=== PATIENT | female | born 1985 | race Caucasian/White ===

== ENCOUNTER 2020-03-24 19:29 | Observation (INO) | payer BC, SELFPAY ==
--- NOTE | ~2020-03-24 | CT_ITS ---
EXAMINATION: CT brain wo con EXAM DATE: 03/24/2020 19:58 INDICATION: Syncope. Loss of consciousness for about 10 seconds. TECHNIQUE: Spiral CT of the head was performed without contrast. Axial, coronal and sagittal images were reviewed. The dose-length product (DLP) for this examination was 605.33 mGy-cm. The exposure w as tailored according to patient size, and iterative reconstruction (ASIR) was used as additional dos e reduction technique. There is no prior study for comparison. FINDINGS: There is no acute intraparenchymal hemorrhage. No evidence of intraparenchymal brain mass lesion. No evidence of acute infarction. There is no mass effect or midline shift. The ventricles are normal in size. There are no extra-axial collections. There are no acute calvarial fractures. T he orbits are unremarkable. Soft tissue is unremarkable. The visualized sinuses and mastoid air can ls are well aerated. IMPRESSION: 1. No acute intracranial findings. Reviewed, dictated and finalized at location A.
--- NOTE | ~2020-03-24 | XR_ITS ---
EXAMINATION: XR chest 1V EXAM DATE: 03/24/2020 20:04 INDICATION: Syncope. TECHNIQUE: Portable AP frontal chest x-ray was obtained. There is no prior study for comparison. FINDINGS: The lungs are clear. There are no pleural effusions. The cardiomediastinal silhouette is within normal limits. There is no pneumothorax suspected. The bones and soft tissues are unremarkab le. IMPRESSION: Normal chest x-ray exam. Reviewed, dictated and finalized at location A. IMPRESSION: Normal chest x-ray exam.
[2020-03-24 19:33] VITALS: BP 106/59; PULSE 70; RESP 18; TEMP 37.2; O2SAT 100
--- NOTE | 2020-03-24 19:44 | ECG_ITS ---
Measurements Intervals [place] Rate: 69 P: 76 KS: 151 QRS: 82 QRSD: 77 T: 52 QT: 366 QTc: 394 Interpretive Statements SINUS RHYTHM WITH SINUS ARRHYTHMIA RSR' IN V1 OR V2, CONSIDER RIGHT VENTRICULAR HYPERTROPHY OR RIGHT VCD LOW QRS VOLTAGE IN PRECORDIAL LEADS BASELINE ARTIFACT- I, II, III, AVF BORDERLINE ECG Electronically Signed On 03-24-2020 20:06:47 CDT by Sumit Duncan D.O.
[2020-03-24] MEDS: SODIUM CHLORIDE 0.9% IV 1,000 ML 999 ML IV CONT ×2 (19:50→22:52)
--- NOTE | 2020-03-24 19:51 | ED.DIZZY ---
HPI - Dizziness General Chief Complaint: Syncope Stated Complaint: syncope Time Seen by Provider: 03/24/20 19:31 Source: RN notes reviewed History of Present Illness HPI Narrative: Patient presents emergency department from home for syncopal episode. Patient states episode occurred approximate 30 minutes prior to arrival. Patient states she been sitting down and got up to use the restroom she states her vision got black briefly and come back that walking to the bathroom shaking dizzy and passed out. States this is the fourth time she is passed out since September. She denies any injury from the episode she denies having any chest pain or shortness of breath she denies any vision changes numbness or tingling in the extremities abdominal pain nausea vomiting or any other symptoms. She did see her primary care physician after syncopal episode in September at that time she states there was recommended to get a Holter monitor but she has not gotten a Holter monitor and follow-up at this point Related Data Home Medications Medication Instructions Recorded Confirmed lorazepam 2 mg PO DAILY 03/24/20 03/24/20 quetiapine 25 mg PO DAILY 03/24/20 03/24/20 sertraline 50 mg PO DAILY 03/24/20 03/24/20 Allergies Allergy/AdvReac Type Severity Reaction Status Date / Time Contrast Media Allergy Intermediate HIVES Uncoded 08/12/14 10:28 Review of Systems Review of Systems: Narrative: Gen.: Denies fevers or chills Eyes: Denies eye pain or visual change ENT: Denies congestion Respiratory: Denies shortness of breath or cough CV: See HPI GI: Denies abdominal pain nausea, emesis or diarrhea Musculoskeletal: Denies back pain or muscle pain Neuro: Denies numbness, tingling, weakness or focal weakness Skin: Denies rash Except as documented, all other systems reviewed and negative [facility] Past Medical History Medical History (Updated 03/24/20 @ 23:52 by Duke Pratt DO) Anxiety Asperger syndrome Depression Social History Social History Smoking status: Never smoker Alcohol intake: never Exam Narrative: Exam Narrative: APPEARANCE: No acute distress, nontoxic, resting in bed EYES: EOMI HEENT: Normocephalic, atraumatic, OMM Neck: Supple nontender to palpation RESPIRATORY: No respiratory distress Clear to auscultation bilaterally with no rhonchi wheezing or rales. CARDIOVASCULAR: Regular rate and rhythm without murmurs rubs or gallops. ABDOMINAL: Soft, nontender, nondistended, no rebound or guarding MUSCULOSKELETAl: Moves all extremities. No clubbing, cyanosis or edema. NEURO: Awake and alert x 3. Following commands, speech normal, no focal deficits SKIN:: Warm, dry. No rashes lesions or abrasions PSYCHIATRIC: Normal affect/mood, Course Course Emergency Course: Patient states that her blood pressures normally run low asymptomatic in bed Discussed with Dr. Duran presentation work-up. Agrees with admission at this time Discussed with patient and family results of workup and diagnosis. Discussed need for admission. Patient and family understand and agree to current treatment plan Vital Signs Vital signs: Vital Signs Temperature 98.9 F 03/24/20 19:33 Pulse Rate 70 03/24/20 19:33 Respiratory Rate 18 03/24/20 19:33 Blood Pressure 106/59 L 03/24/20 19:33 Pulse Oximetry 100 03/24/20 19:33 Temperature 98.9 F 03/24/20 19:33 Pulse Rate 78 03/24/20 22:58 Respiratory Rate 20 03/24/20 22:58 Blood Pressure 100/45 L 03/24/20 22:58 Pulse Oximetry 99 03/24/20 22:58 MDM - Dizziness Lab Data Result diagrams: 03/24/20 19:49 03/24/20 19:49 Labs: Lab Results 03/24/20 03/24/20 03/24/20 Range/Units 19:49 19:49 19:49 WBC 2.7 L (4.5-10.0) K/mm3 RBC 4.24 (4.2-5.4) M/mm3 Hgb 12.5 (12.0-15.0) g/dL Hct 38.5 (37.0-47.0) % MCV 90.8 (80-100) fl MCH 29.5 (26-34) pg MCHC 32.5 (32-36) g/dl
[2020-03-24 19:57] LABS: Basophils Percent Auto 1.1 % (0.2-1.2); Eosinophils Absolute Auto 0.1 K/mm3 (0-0.3); Eosinophils Percent Auto 2.6 % (0-4.4); Hematocrit 38.5 % (37.0-47.0); Hemoglobin 12.5 g/dL (12.0-15.0); Immature Granulocyte Absolute 0.01 K/mm3 (0.00-0.031); Immature Granulocyte Percent A 0.4 % (0-0.5); Lymphocytes Absolute Auto 0.86 K/mm3 (0.9-3.2); Lymphocytes Percent Auto 31.4 % (18.3-44.2); Mean Corpuscular HGB Conc 32.5 g/dl (32-36); Mean Corpuscular Hemoglobin 29.5 pg (26-34); Mean Corpuscular Volume 90.8 fl (80-100); Mean Platelet Volume 11.8 fl (7.4-10.4); Monocytes Absolute Auto 0.2 K/mm3 (0.1-0.6); Monocytes Percent Auto 8.4 % (2.6-8.5); Neutrophils Absolute Auto 1.5 K/mm3 (1.3-6.7); Neutrophils Percent Auto 56.1 % (45.5-73.1); Platelet Count Result 138 k/mm3 (150-375); Red Blood Count 4.24 M/mm3 (4.2-5.4); Red Cell Distribution Width 12.3 % (11.5-14.5); White Blood Count 2.7 K/mm3 (4.5-10.0)
[2020-03-24 20:05] LABS: Prothrombin Time 13.2 Seconds (11.1-14.7)
[2020-03-24 20:06] LABS: Partial Thromboplastin Time 26.7 SECONDS (22.3-36.8)
[2020-03-24 20:09] LABS: Alanine Aminotransferase 12 U/L (4-35); Albumin Level 4.3 g/dL (3.5-5.1); Alkaline Phosphatase 64 U/L (38-126); Aspartate Amino Transferase 22 U/L (14-36); Bilirubin,Total 0.7 mg/dL (0.2-1.3); Blood Urea Nitrogen 13 mg/dL (7-17); Calcium 9.3 mg/dL (8.4-10.2); Carbon Dioxide 27 mmol/L (22-30); Chloride 105 mmol/L (98-107); Estimated CRCL calculation 59 ml/min; Estimated Glomerular Filt Rate > 60; Glucose 69 mg/dL (65-105); Potassium 3.4 mmol/L (3.4-5.0); Sodium 139 mmol/L (137-145)
[2020-03-24 20:21] LABS: Troponin I < 0.012 ng/mL (0.000-0.034)
[2020-03-24 21:20] VITALS: BP 101/67; PULSE 50; RESP 20; O2SAT 97
[2020-03-24 21:45] LABS: Add Urine Microscopic? YES; Appearance Urine Cloudy (Clear); Bacteria Urine Trace /hpf; Bilirubin Urine Negative (Negative); Blood Urine 3+ (Negative); Color Urine Yellow (Yellow); Glucose Urine UA Negative (Negative); Ketones Urine Negative (Negative); Leukocyte Esterase Ur 1+ LEU/UL (Negative); Mucus Urine Few /lpf; Nitrate Urine Negative (Negative); Protein Urine 2+ mg/dL (Negative); RBC Urine >75 /hpf (0-2); Squamous Epithelial Cell Urine Moderate /hpf (Few); Urobilinogen Urine Negative mg/dL (<2.0); WBC Urine 51-75 /hpf
[2020-03-24 21:54] VITALS: BP 87/52; PULSE 51; RESP 20; O2SAT 100
[2020-03-24 21:55] VITALS: BP 89/60; BP 90/62; PULSE 58; PULSE 63; RESP 20; O2SAT 100; O2SAT 98
[2020-03-24 21:56] VITALS: BP 87/52; BP 89/60; BP 90/62; PULSE 51; PULSE 58; PULSE 63
[2020-03-24 22:58] VITALS: BP 100/45; PULSE 78; RESP 20; O2SAT 99
--- NOTE | 2020-03-24 23:10 | PC.NURSE ---
Assumed care of patient at this time. Received bedside report from MARTHA Alva.
[2020-03-24 23:29] LABS: Lactic Acid Reflex 0.6 mmol/L (0.7-2.1)
[2020-03-25] VITALS (9 sets, daily range): BP systolic 99–116; BP diastolic 52–65; PULSE 51–63; RESP 16–20; TEMP 36.3–36.6; O2SAT 96–99; BMI 17.9
--- NOTE | 2020-03-25 00:57 | ADMGEN ---
This patient, Delores Head, was admitted to IMU Room 201-01 FROM ER 03/25/20 0050. Patient/family oriented to hospital policies and general routines including ID bracelet, bed and alarms, visiting hours, pain management, procedures, bathroom and other care routines, personal items, smoking policy, room service/diet, and visiting hours. Valuables list has been completed. Information on how to activate the Rapid Response Team has been discussed. Patient/Family are encouraged to report perceived risks to care and to ask questions if they do not understand what they are told or what they should do.
[2020-03-25] MEDS: SODIUM CHLORIDE 0.9% IV 1,000 ML 100 ML IV CONT (00:58)
[2020-03-25 02:32] LABS: Basophils Percent Auto 0.6 % (0.2-1.2); Eosinophils Absolute Auto 0.1 K/mm3 (0-0.3); Eosinophils Percent Auto 1.6 % (0-4.4); Hematocrit 38.8 % (37.0-47.0); Hemoglobin 12.3 g/dL (12.0-15.0); Immature Granulocyte Absolute 0.01 K/mm3 (0.00-0.031); Immature Granulocyte Percent A 0.3 % (0-0.5); Lymphocytes Absolute Auto 0.68 K/mm3 (0.9-3.2); Lymphocytes Percent Auto 21.3 % (18.3-44.2); Mean Corpuscular HGB Conc 31.7 g/dl (32-36); Mean Corpuscular Hemoglobin 29.3 pg (26-34); Mean Corpuscular Volume 92.4 fl (80-100); Monocytes Absolute Auto 0.2 K/mm3 (0.1-0.6); Monocytes Percent Auto 5.9 % (2.6-8.5); Neutrophils Absolute Auto 2.3 K/mm3 (1.3-6.7); Neutrophils Percent Auto 70.3 % (45.5-73.1); Platelet Count Result 120 k/mm3 (150-375); Red Cell Distribution Width 12.2 % (11.5-14.5); White Blood Count 3.2 K/mm3 (4.5-10.0)
[2020-03-25 02:41] LABS: Alanine Aminotransferase 13 U/L (4-35); Albumin Level 4.1 g/dL (3.5-5.1); Alkaline Phosphatase 72 U/L (38-126); Aspartate Amino Transferase 20 U/L (14-36); Bilirubin,Total 0.3 mg/dL (0.2-1.3); Blood Urea Nitrogen 11 mg/dL (7-17); Calcium 8.5 mg/dL (8.4-10.2); Carbon Dioxide 27 mmol/L (22-30); Chloride 108 mmol/L (98-107); Estimated CRCL calculation 66 ml/min; Estimated Glomerular Filt Rate > 60; Glucose 115 mg/dL (65-105); Potassium 3.5 mmol/L (3.4-5.0); Sodium 143 mmol/L (137-145)
[2020-03-25 02:52] LABS: Troponin I < 0.012 ng/mL (0.000-0.034)
[2020-03-25] MEDS: SERTRALINE HCL 50 MG TABLET PO (05:34)
[2020-03-25] MEDS: QUEtiapine FUMARATE 25 MG TABLET PO (05:34)
[2020-03-25] MEDS: POTASSIUM CHLORIDE 20 MEQ TABLET 40 MEQ PO (08:50)
--- NOTE | 2020-03-25 09:18 | PM.IMHP ---
H&P: HPI History of Present Illness Chief complaint: syncope Narrative: Date of visit 03/25 830. Delores Head is a 34 year old female states that last evening had been lying down got up to go to the bathroom and started feeling lightheaded and blacked out. States she was out for about 30 seconds with no confusion no bowel or bladder incontinence. She notes no palpitations nausea or other symptomatology. She has had at least 3 other similar episodes since of the year and had seen her primary care and was encouraged to get a monitor but with changing insurances she had not been able to get that done. As stated she denied any palpitations although 1 of the episodes were when she was standing from a sitting or lying position and less momentary consciousness.. 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 Her roommates have lost their jobs. Her mother was just diagnosed with Parkinson's and her parents have downsized and moved to [place]. She does have a chronic eating disorder with avoidance of numerous foods but states that her weight has been stable as far she knows She admits to not sleeping well sleeping more during the day than she does at night. 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 normal presently on cycle Muscle skeletal no particular joint discomfort Integument no skin breakdown rashes Neuropsych no seizures no headaches, does have history of anxiety and depression [facility] Past Medical History Medical History (Updated 03/25/20 @ 09:30 by Tru Pinedo MD) Anxiety Asperger syndrome Cystitis, interstitial Depression Surgical History Surgical History (Updated 03/25/20 @ 09:30 by Tru Pinedo MD) S/P cholecystectomy Family History Family History (Updated 03/25/20 @ 01:50 by Diana Brandt RN) Father Diabetes mellitus Hypertension Myocardial infarction Mother Parkinson disease Heart disease Mother No problems noted. 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, presently unemployed Smoking status: Never smoker Alcohol intake: never Substance use: never Gender identity (if verbalized by the patient): Female Spiritual care concerns: No Meds Home Medications and Allergies Home Medications Medication Instructions Recorded Confirmed Type lorazepam 2 mg PO DAILY 03/24/20 03/24/20 History quetiapine 25 mg PO DAILY 03/24/20 03/24/20 History sertraline 50 mg PO DAILY 03/24/20 03/24/20 History Allergies Allergy/AdvReac Type Severity Reaction Status Date / Time Contrast Media Allergy Intermediate HIVES Uncoded 08/12/14 10:28 Vital Signs Vital Signs - 24 hr 03/24/20 19:33 03/24/20 21:20 03/24/20 21:54 Temperature 37.2 C Pulse Rate 70 50 L 51 L Respiratory Rate 18 20 20 Blood Pressure 106/59 L 101/67 87/52 L Pulse Oximetry 100 97 100 03/24/20 21:55 03/24/20 21:56 03/24/20 22:58 Temperature Pulse Rate 63 63 78 Respiratory Rate 20 20 Blood Pressure 90/62 L 90/62 L 100/45 L Pulse Oximetry 98 99 03/25/20 00:00 03/25/20 00:10 03/25/20 00:59 Temperature 36.6 C 36.6 C Pulse Rate 60 56 L 56 L Respiratory Rate 20 20 Blood Pressure 99/59 L 109/64 Pulse Oximetry 99 99 03/25/20 01:00 03/25/20 01:57
== END 2020-03-25 11:25 | disposition home or self-care (01) ==
LOC: ANHED 20:19 → ANHIMU 23:46
PROVIDERS: Admitting Provider Internal Medicine; Emergency Provider Emergency Medicine; Visit Provider Internal Medicine
DX: R55 Syncope and collapse (principal); F41.9 Anxiety disorder, unspecified; F32.9 Major depressive disorder, single episode, unspecified; F84.5 Asperger's syndrome; Z79.899 Other long term (current) drug therapy
CPT/HCPCS: 36415; 70450; 71045; 80053; 81001; 81025; 83605; 84443; 84484; 85025; 85610; 85730; 87040; 87086; 87088; 93005; 96360; 96361; 99285; A9270; G0378; J7030

== ENCOUNTER 2022-09-19 16:25 | Outpatient (CLI) | payer OTHER, SELFPAY ==
--- NOTE | ~2022-09-19 | MR_ITS ---
EXAMINATION: MR brain/brain stem wo con DATE: 09/19/2022 17:12 INDICATION: Family history of Parkinson's disease. Leg tremors. TECHNIQUE: Magnetic resonance imaging (MRI) of the brain and brainstem was performed without intraven ous contrast. COMPARISON: Head CT 03/24/2020 FINDINGS: There is no intracranial hemorrhage, acute infarction, or abnormal intracranial mass lesion . The ventricles are normal in size. The paranasal sinuses are clear. The mastoid air cells are salma l. The orbits are normal. IMPRESSION: 1. Normal brain. Reviewed, dictated and finalized at location A. ARCH QUALITY ASSURANCE SPECIALIST IMPRESSION: 1. Normal brain.
== END 2022-09-19 16:26 | disposition home or self-care (01) ==
LOC: ANHIMG 16:27
PROVIDERS: PCP Internal Medicine; Visit Provider Clinical Nurse Specialist
DX: R25.1 Tremor, unspecified (principal); E22.1 Hyperprolactinemia; Z82.0 Family history of epilepsy and other diseases of the nervous system
CPT/HCPCS: 70551

== ENCOUNTER 2022-10-18 16:33 | Outpatient (CLI) | payer OTHER, SELFPAY ==
--- NOTE | ~2022-10-18 | MR_ITS ---
MRI of the brain and pituitary gland Clinical History: Abnormal prolactin level Technique: Axial and sagittal T1-weighted images were acquired. These were followed by axial T2-weigh yoli, diffusion weighted, gradient, and FLAIR images. Sagittal and coronal T1-weighted thin cut images were also performed through the sella turcica. Following intravenous administration of 14 cc MultiHa nce gadolinium, T1-weighted fat-sat imaging was performed through the brain in the axial plane. Coron al dynamic T1-weighted thin cut postcontrast imaging was also performed through the sella turcica. Findings: There is no abnormal signal in brain parenchyma. No acute/acute infarct, intracranial hemor rhage, or mass lesion. Ventricles and subarachnoid spaces are unremarkable. Orbits are unremarkable. Paranasal sinuses and m astoid air cells are clear. Major intracranial flow voids are intact. Sagittal midline structures are intact. No pituitary or sellar/suprasellar mass identified. No abnormal postcontrast enhancement identified. IMPRESSION: Unremarkable exam. No pituitary or sellar/suprasellar mass identified. Reviewed, dictated and finalized at location . CAL DOSIMETRIST
== END 2022-10-18 16:34 | disposition home or self-care (01) ==
PROVIDERS: PCP Internal Medicine; Visit Provider Obstetrics & Gynecology Gynecology
DX: E22.1 Hyperprolactinemia (principal)
CPT/HCPCS: 70553; A9577

== ENCOUNTER 2024-05-22 08:21 | Outpatient (CLI) | payer OTHER, SELFPAY ==
--- NOTE | 2024-06-03 15:25 | WPDHOMESLEEP ---
Sleep Study - Home Unattended Date of Study: 05/22/24 Ordering Provider: REN Bhatti-Owen Interpreting Provider: Lila Pantoja, DO Home Sleep Study Type: Watch PAT Height: 1.77 m Weight: 78.471 kg Body Mass Index: 25.2 Neck Circumference (inches): 13.5 John Day: 16 Reason for Sleep Study Unrefreshing sleep, daytime hypersomnia Sleep History The patient is a 38-year-old female that had a sleep study ordered by her primary care for evaluation of sleep apnea. The patient denies awakening from sleep short of breath. She denies awakening at night with heartburn, belching or cough. She occasionally snores but is rarely loud enough that others complain. She frequently has trouble sleeping when she has a cold. She denies waking up gasping for air throughout the night. She denies having breathing problems at night observed by herself or others. She occasionally sweats excessively at night. She denies having heart palpitations or irregular heartbeats during the night. She frequently falls asleep during the day but never while driving. She denies sleep paralysis and cataplexy. She constantly has trouble at school or work due to sleepiness. She occasionally experiences vivid dreamlike scenes upon awakening or falling asleep. She denies feeling afraid of going to sleep. She rarely has nightmares. She occasionally remembers her dreams. She constantly has thoughts racing through her mind. She occasionally feels sad or depressed. She constantly has anxiety. She rarely has muscular tension. She rarely notices parts of her body jerk. She denies kicking during the night. She occasionally has crawling and aching feelings in her legs and occasionally has leg pain during the night. She denies grinding her teeth during sleep and denies awakening with morning jaw pain. She is frequently bothered by pain during the day but occasionally awakened by pain during the night. She constantly wakes up feeling stiff in the morning. She constantly wakes up with sore or achy muscles. She frequently wakes up with pain in the neck I had a joints. She goes to bed at 8:00 p.m. on weekdays and at midnight on the weekends. It can take her 30 minutes up to 2 hours to fall asleep. She typically does not wake up throughout the night. She will stay in bed for 1 hour after waking up in the morning. She does typically gets 9-10 hours of sleep per night. She currently lives with her partner. She denies consuming any caffeinated beverages within 2 hours of bedtime. She denies engaging in physical exercise before bedtime. She will read and watch television before falling asleep. She will take naps in afternoon or the evening but they are not refreshing. She does consume caffeinated beverages throughout the day. She denies tobacco, alcohol and recreational drug use. [facility] Past Medical History Medical History Anxiety Asperger syndrome Cystitis, interstitial Depression Surgical History Surgical History S/P cholecystectomy Family History Family History Father Diabetes mellitus Hypertension Myocardial infarction Mother Parkinson disease Heart disease Mother No problems noted. 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
[2024-06-03 15:26] VITALS: BMI 25.2
== END 2024-05-23 11:10 | disposition home or self-care (01) ==
LOC: ANHCSM 08:22
PROVIDERS: PCP Internal Medicine; Visit Provider Clinical Nurse Specialist
DX: G47.10 Hypersomnia, unspecified (principal); Z82.0 Family history of epilepsy and other diseases of the nervous system; G47.33 Obstructive sleep apnea (adult) (pediatric)
CPT/HCPCS: 95800

== ENCOUNTER 2024-11-08 12:02 | Outpatient (CLI) | payer OTHER, SELFPAY ==
--- NOTE | ~2024-11-08 | MR_ITS ---
EXAMINATION: MR brain/brain stem wo/w con DATE: 11/08/2024 14:09 INDICATION: Headache. TECHNIQUE: Magnetic resonance imaging (MRI) of the brain and brainstem was performed without and with 17 mL MultiHance intravenous contrast. COMPARISON: Brain MRI 10/18/2022, head CT 03/24/2020 FINDINGS: There is no intracranial hemorrhage, acute infarction, or abnormal intracranial mass lesion . The ventricles are normal in size. There is mucosal thickening in sphenoid sinus. The orbits are no rmal. The mastoid air cells are normal. IMPRESSION: 1. Normal brain. Reviewed, dictated and finalized at location K. MAN IMPRESSION: 1. Normal brain.
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
--- OUTSIDE RECORDS SUMMARY | 2024-11-13 08:58 | XMS_ITS | Clinical Summary ---
Author Organization [facility] [address] [place] [address] [place] [id number] Care Team Providers Care Doughnut Machine Operator Name Role Phone Tarun Barber MD Primary Care Provider Allergies Active Allergy Reactions Criticality Noted Date Comments [place]-Tan-Xypc-Vit s E,A,D Hives High 05/09/2017 Eszopiclone Other (See Comments) 11/04/[address] half-awake 45 min (parasomnia) Gluten Unknown 07/12/2020 Iodinated Contrast Media Other (See Comments) 06/29/2021 Miconazole Hives High 04/07/2020 Milk Unknown 05/28/2018 Onion Unknown 05/28/2018 Red Dye Hives,Rash High Wheat Unknown 05/28/2018 Wheat/gluten allergy but NOT celiac's Medications lipase-protease- amylase DR Carroll) 24,000-76,000-12 0,000 unit capsule Take 1 Capsule by mouth 4 times daily as needed (with meals for stomach upset). 30 Capsule 3 0 Active LORazepam (ATIVAN) 2 mg tabletIndication s:Anxiety state,Depression , unspecified depression type Take 1 Tablet (2 mg) by mouth every 8 hours as needed for Anxiety. Dr Philipp Blount psych 0 Active zolpidem (AMBIEN) 5 mg tablet TK 1 T PO QD HS 0 Active sertraline (ZOLOFT) 100 mg tabletIndication s:Anxiety state,Depression , unspecified depression type Take 1 Tablet (100 mg) by mouth daily. Psych Dr Philipp Blount in [place] 1 Active lamoTRIgine (LaMICtal) 25 mg tablet Take 50 mg by mouth daily. Active OLANZapine (ZyPREXA) 5 mg tablet Take 1 Tablet (5 mg) by mouth daily at bedtime. 1 1 Active gabapentin (NEURONTIN) 300 mg capsule Take 300 mg by mouth daily. 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 Nothing to do at this time, radiology recommended 1 year follow up image, which is reasonable. Personally reviewed images with patient, showed cyst, and provided reassurance about benign nature of this finding. Abdominal pain, generalized 07/06/2013 Encounters Date Type Department Care Team Description 09/23/2024 External Device Data [facility] ABSTRACTION Provider, Abstract 09/09/2024 External Device Data [facility] ABSTRACTION Provider, Abstract from Last 3 Months Immunizations Immunization Administration Dates Next Due (Miradia)(12 YR UP) COVID-19 VACCINE - EMERGENCY USE AUTHORIZATION, MRNA, [id number](PF) 30 MCG/0.3 ML IM SUSP 01/30/2021,01/04/2021 Family History Medical History Relation Name Comments Diabetes Father Heart Attack Father Skin Cancer Father Throat Cancer Maternal Grandfather Aneurysm Maternal Grandmother Other Mother dementia, parki nsons Thyroid Disease Mother Colon Cancer Paternal Grandmother Other Sister 1 rheumatoid arth ritis and narcolepsy Healthy Sister 2 Relation Name Status Comments Father Alive Maternal Grandfather Maternal Grandmother Mother Alive Paternal Grandfather Paternal Grandmother Sister 1 Alive Sister 2 Alive Social History Tobacco Use Types Packs/Day Years Used Date Smoking Tobacco: Never Smokeless Tobacco: Never Tobacco Cessation:Counseling Given: Not Answered Alcohol Use Standard Drinks/Week Comments Yes 0 (1 standard drink = 0.6 oz pur e alcohol) rare Comments No Sex and Gender Information Value Date Recorded Sex Assigned at Not on file Legal Sex Female 2:30 PM CDT Gender Identity Not on file Sexual Orientation Not on file Last Filed Vital Signs Vital Sign Reading Time Taken Comments Blood Pressure 100/62 07/19/2023 9:27 AM CDT Pulse 76 06/29/2021 2:04 PM CDT Temperature 37.2 ??C (99 ??F) 06/29/2021 2:04 PM CDT Respiratory Rate 14 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 Oxygen Saturation 96% 06/29/2021 2:04 PM CDT Inhaled Oxygen Concentration - - Weight 82.2 kg (181 lb 2 oz) 07/19/2023 9:27 AM CDT Height 176.5 cm (5' 9.5 ) 07/19/2023 9:27 AM CDT Body Mass Index 26.36 07/19/2023 9:27 AM CDT Plan of Treatment Health Maintenance Due Date Last Done Comments DTAP/TDAP/TD VACCINES (1 - Tdap) 2003 HEPATITIS B VACCINES (1 of 3 - 19+ 3-dose series) 2003 INFLUENZA VACCINE (#1) 2024 02/17/2021 COVID-19 Vaccine ( season) 2024 01/30/2021, 01/04/2021 BREAST CANCER SCREENING 2024 CERVICAL CANCER SCREENING 07/19/20262022, 11/17/2019, 11/17/2019, Additional history exists HPV VACCINES Aged Out No longer eligi ble based on patient's age to complete this topic PNEUMOCOCCAL VACCINE 0-64 YEARS Aged Out No longer eligible based on patient's age to complete this topic Procedures Procedure Name Priority Date/Time Associated Diagnosis Comments CERV/VAG CYTO AGE BASED SCREEN PAP W CT/NG, TRICH Routine 07/19/2023 9:54 AM CDT Cervical cancer screening Screening examination for STD (sexually transmitted disease) from Last 3 Months or Most Recently Relevant to Health Maintenance Results * CERV/VAG CYTO AGE BASED SCREEN PAP W CT/NG, TRICH (07/19/2023 9:54 AM CDT) COMMENT (PAP): [facility] Comment: This order for age-based cervical cancer and STI screening follows ACOG guidelines(PB 168, 140, VFI571). See individual assays for performing site location. CLINICAL INFORMATION [facility] Comment:SCREENING LAST MENSTRUAL PERIOD [facility] Comment:NONE GIVEN PREV PAP: [facility] Comment:NONE GIVEN PREV BX: [facility] Comment:NONE GIVEN SOURCE [facility] Comment:Endocervix ADEQUACY: [facility] Comment: Satisfactory for evaluation. Endocervical/transformation zone component present. Age and/or menstrual status not provided PAP INTERP [facility] Comment: Cytology Results: Negative for intraepithelial lesion or malignancy. COMMENT (PAP TEST) [facility] [place] Comment: This Pap test has been evaluated with computer assisted technology. TOLL OPERATOR: Leo Miguel Comment: ERIC, CT(ASCP) CT screening location: [place] [address] [place] [id number] EXPLANATORY NOTE [employer] Property ManagerMendez Miguel Comment: EXPLANATORY NOTE: The Pap is a screening test for cervical cancer. It is not a diagnostic test and is subject to false negative and false positive results. It is most reliable when a satisfactory sample, regularly obtained, is submitted with relevant clinical findings and history, and when the Pap result is evaluated along with historic and current clinical information. HPV E6/E7 Not Detected Not Detected [facility] [place] Comment: Methodology: Casting House Worker-Mediated Amplification This assay detects E6/E7 viral messenger RNA (mRNA) from 14 high-risk HPV types (16,18,31,33,35,39,45,51,52,56,58,59,66,68). Cervical sources are required for HPV testing. If a vaginal source from a patient who has had a total hysterectomy with removal of cervix was submitted, please contact the testing laboratory for alternative testing options. For additional information, please refer to http://[email or web address].Hotelcloud/faq/LZS717z5 (This link if provided for information/ educational purposes only.) C TRAC RNA NOT DETECTED NOT DETECTED [facility] N.GONORRHOEAE RNA, TMA NOT DETECTED NOT DETECTED [facility] COMMENT INFECTIOUS DISEASE [facility] Comment: The analytical performance characteristics of this assay, when used to test SurePath(TM) specimens have been determined by [facility]. The modifications have not been cleared or approved by the FDA. This assay has been validated pursuant to the CLIA regulations and is used for clinical purposes. For additional information, please refer to https://Pluto.TV/faq/QXX597 (This link is being provided for information/ educational purposes only.) TRICHOMONAS VAGINALIS,QUALITAT FREDRICK,PAP VIAL NOT DETECTED NOT DETECTED [facility] [place] Comment: The analytical performance characteristics of this assay have been determined by [facility]. The modifications have not been cleared or approved by the FDA. This assay has been validated pursuant to the CLIA regulations and is used for clinical purposes. For additional information, please refer to [email or web address]/ [email or web address] (This link is being provided for information/ educational purposes only.) Test Performed at: [facility] [id number] ??[phone] Rain XIE Genital SWAB OF ENDOCERVIX / Unknown 07/19/2023 9:54 AM CDT 07/20/2023 3:29 AM CDT Deanna Sparks DO PATHOLOGY/CYTOLOGY ORDERABLES Final Result [facility] [phone] [facility] [address] [phone] from Last 3 Months or Most Recently Relevant to Health Maintenance Insurance [employer] CHOICE POS II Care Teams Doughnut Machine Operator Relationship Specialty [place] [address] [place] [address] PCP - General Internal Medicine 05/28/18
--- OUTSIDE RECORDS SUMMARY | 2024-11-13 08:58 | XMS_ITS | Referral Summary ---
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
--- OUTSIDE RECORDS SUMMARY | 2024-11-13 08:59 | XMS_ITS | Continuity of Care Document ---
Author Organization [employer] [place] Address [address] [place] [address] [address] [place] [address] Phone Care Team Providers Care Mercury Washer Name Role Phone Alexshareekrista PT, DPT, Isabel Unavailable Unavail able Procedures Procedure Date Therapeutic Activities Manual Therapy Manual Therapy Therapeutic Activities Neuromuscular Re-Ed Manual Therapy Therapeutic Activities Neuromuscular Re-Ed Manual Therapy Neuromuscular Re-Ed Manual Therapy Therapeutic Activities Therapeutic Activities Manual Therapy Neuromuscular Re-Ed Therapeutic Activities PT Evaluation Moderate Complexity Neuromuscular Re-Ed Manual Therapy Progress Note Manual Therapy Manual Therapy Manual Therapy Manual Therapy Manual Therapy Therapeutic Exercise Manual Therapy Therapeutic Exercise Manual Therapy Therapeutic Exercise Manual Therapy Therapeutic Exercise Manual Therapy Therapeutic Exercise Therapeutic Activities Manual Therapy Therapeutic Exercise Therapeutic Activities Manual Therapy Therapeutic Exercise Therapeutic Activities Manual Therapy Therapeutic Exercise Therapeutic Activities Manual Therapy Therapeutic Exercise Therapeutic Activities Manual Therapy Therapeutic Exercise Therapeutic Activities Manual Therapy Therapeutic Exercise Therapeutic Activities Manual Therapy Therapeutic Exercise Therapeutic Activities Manual Therapy Therapeutic Exercise Therapeutic Activities Manual Therapy Therapeutic Exercise Therapeutic Activities Manual Therapy Therapeutic Exercise Therapeutic Activities Manual Therapy Therapeutic Exercise Therapeutic Activities Manual Therapy Therapeutic Exercise Therapeutic Activities Manual Therapy Therapeutic Exercise Therapeutic Activities Manual Therapy Therapeutic Exercise Therapeutic Activities Manual Therapy Therapeutic Exercise Therapeutic Activities Manual Therapy Therapeutic Exercise Therapeutic Activities Manual Therapy Therapeutic Exercise Therapeutic Activities Manual Therapy Progress Note Therapeutic Exercise Therapeutic Activities Manual Therapy Therapeutic Exercise Therapeutic Activities Manual Therapy Therapeutic Exercise Therapeutic Activities Manual Therapy Progress Note Therapeutic Exercise Therapeutic Activities Manual Therapy Therapeutic Exercise Therapeutic Activities Manual Therapy Therapeutic Exercise Therapeutic Activities Manual Therapy Therapeutic Exercise Therapeutic Activities Manual Therapy Therapeutic Exercise Therapeutic Activities Manual Therapy PT Evaluation Low Complexity Therapeutic Exercise Manual Therapy Therapeutic Exercise Therapeutic Activities Manual Therapy THERAPEUTIC EXERCISES MANUAL THERAPY THERAPEUTIC EXERCISES MANUAL THERAPY FUNC ACTIVITY PT Re-Evaluation THERAPEUTIC EXERCISES MANUAL THERAPY FUNC ACTIVITY THERAPEUTIC EXERCISES MANUAL THERAPY FUNC ACTIVITY THERAPEUTIC EXERCISES MANUAL THERAPY THERAPEUTIC EXERCISES MANUAL THERAPY THERAPEUTIC EXERCISES MANUAL THERAPY THERAPEUTIC EXERCISES NEUROMUSCULAR RE-ED MANUAL THERAPY PT Evaluation Low Complexity THERAPEUTIC EXERCISES NEUROMUSCULAR RE-ED MANUAL THERAPY Progress Note THERAPEUTIC EXERCISES MANUAL THERAPY THERAPEUTIC EXERCISES MANUAL THERAPY THERAPEUTIC EXERCISES MANUAL THERAPY THERAPEUTIC EXERCISES MANUAL THERAPY THERAPEUTIC EXERCISES MANUAL THERAPY Progress Note THERAPEUTIC EXERCISES MANUAL THERAPY THERAPEUTIC EXERCISES MANUAL THERAPY THERAPEUTIC EXERCISES MANUAL THERAPY PT RE-EVALUATION THERAPEUTIC EXERCISES MANUAL THERAPY THERAPEUTIC EXERCISES MANUAL THERAPY THERAPEUTIC EXERCISES MANUAL THERAPY THERAPEUTIC EXERCISES MANUAL THERAPY THERAPEUTIC EXERCISES MANUAL THERAPY THERAPEUTIC EXERCISES MANUAL THERAPY THERAPEUTIC EXERCISES MANUAL THERAPY THERAPEUTIC EXERCISES MANUAL THERAPY PT EVALUATION THERAPEUTIC EXERCISES NEUROMUSCULAR RE-ED MANUAL THERAPY PT RE-EVALUATION THERAPEUTIC EXERCISES MANUAL THERAPY NEUROMUSCULAR RE-ED THERAPEUTIC EXERCISES MANUAL THERAPY THERAPEUTIC EXERCISES NEUROMUSCULAR RE-ED MANUAL THERAPY HOT/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 UNATT THERAPEUTIC EXERCISES MANUAL THERAPY THERAPEUTIC EXERCISES MANUAL THERAPY THERAPEUTIC EXERCISES MANUAL THERAPY THERAPEUTIC EXERCISES MANUAL THERAPY THERAPEUTIC EXERCISES MANUAL THERAPY THERAPEUTIC EXERCISES MANUAL THERAPY THERAPEUTIC EXERCISES MANUAL THERAPY THERAPEUTIC EXERCISES MANUAL THERAPY THERAPEUTIC EXERCISES MANUAL THERAPY THERAPEUTIC EXERCISES NEUROMUSCULAR RE-ED MANUAL THERAPY THERAPEUTIC EXERCISES NEUROMUSCULAR RE-ED MANUAL THERAPY THERAPEUTIC EXERCISES NEUROMUSCULAR RE-ED MANUAL THERAPY PT EVALUATION THERAPEUTIC EXERCISES NEUROMUSCULAR RE-ED MANUAL THERAPY FUNC ACTIVITY 15 MIN Advance Directives Directive Yes / No Effective Date File Name No Information Encounters Encounter Description Practice Location Reason(s) For Visit Diagnoses Date Provider Providers Copied on Encounter [facility] [employer] [facility], [place], [place], [id number], tel:[phone] Micheal No Information Jun- 0 Dixie Hall. . Referring Provider: Maxx Coates, [address] [facility] [address] [facility], [place], [address]. tel:[phone] [facility] [employer], [place], [place], [id number], tel:[phone] [place] No Information 0 Henrichs Isabel. . Referring Provider: Jordan Bauman [address] [facility] [address] [facility], [place], [address]. tel:[phone] [facility], [address] [place] [address] [address], [place], [place], [id number], tel:[phone] [place] No Information 0 Henrichs Isabel. . Referring Provider: Jordan Bauman [address] [facility] [address] [facility], [place], [place], [facility]. tel:[phone] [address] [facility], [place], [place], [id number], [place] tel:[phone] [place] No Information Jun-- 0 Henrichs Isabel. . Referring Provider: Jordan Bauman [facility] [address] [facility], [place], [address]. tel:[phone] [facility] [address] [place] [address], [place], [place], [id number], [place] tel:[phone] [place] No Information 0 Henrichs Isabel. . Referring Provider: Jordan Bauman [facility] [address] [facility], [place], [address]. tel:[phone] [place] [address], [id number], tel:[phone] [place] No Information 0 Henrichs Isabel. . Referring Provider: Jordan Bauman [facility] [address] [facility], [place], [address]. tel:[phone], [id number], [place] tel:[phone] [place] No Information 0 Henrichs Isabel. . Referring Provider: Jordan Bauman [address] [facility] [address] [facility], [place], [address]. tel:[phone] [facility], [address] [place] [address], [place], [place], [id number], [place] tel:[phone] [facility] Muscle weakness (generalized)Othe r muscle spasmOther specified disorders of urinary systemPelvic and perineal pain Dec-2 7 8 Mike Vargas. [address] [facility], [address], [place], [facility], . [phone] Referring Provider: Jordan Bauman [address] [facility], [place], [place], [facility]. tel:[phone] [facility] [address] [facility] [address], [place], [address], tel:[phone] [facility] Muscle weakness (generalized)Othe r muscle spasmOther specified disorders of urinary systemPelvic and perineal pain Oct-2 8 Mike Vargas. [address] [facility], [address], [place], [facility], . [phone] Referring Provider: Jordan Bauman [address] [facility], [place], [facility]. tel:[phone] [facility] [address] [facility], [place], [place], [id number], [place] tel:[phone] [facility] Muscle weakness (generalized)Othe r muscle spasmOther specified disorders of urinary systemPelvic and perineal pain 0 3-201 8 Mike Vargas. [address] [facility], [address], [place], [facility], . [phone] Referring Provider: Jordan Bauman [address] [facility], [place], [facility]. tel:[phone] [facility] [facility] [address], [place], [id number], [place] tel:[phone] [facility] Muscle weakness (generalized)Othe r muscle spasmOther specified disorders of urinary systemPelvic and perineal pain Sep-1 2-201 8 Mike Vargas. [address] [facility], [address], [place], [place], [facility], [place]. tel:[phone] Referring Provider: Jordan Bauman [address] [facility] [address] [facility], [place], [facility]. tel:[phone] [facility] [address] [place] [address], [id number], tel:[phone] [facility] Muscle weakness (generalized)Othe r muscle spasmOther specified disorders of urinary systemPelvic and perineal pain May- 8 Mike Soteloi. [address] [facility], [address], [place], [facility], [place]. tel:[phone] Referring Provider: Salina Bauman[address] [place] [address] Suite [facility], [place], [facility]. tel:[phone] [facility] [address] [place] [address], [id number], tel:[phone] [facility] Muscle weakness (generalized)Othe r muscle spasmOther specified disorders of urinary systemPelvic and perineal pain May- 8 Mike Vargas. [address] [facility], [address], [place], [facility], [place]. tel:[phone] Referring Provider: Jordan Bauman [address] [facility] [address] [facility], [place], [facility]. tel:[phone] [facility] [address], [id number], [place] tel:[phone] [facility] Muscle weakness (generalized)Othe r muscle spasmOther specified disorders of urinary systemPelvic and perineal pain May-0 8 Mike Soteloi. [address] [facility], [address], [place], [facility], [place]. tel: [phone] Referring Provider: Jordan Bauman [address] [facility] [address] [facility], [place], [facility]. tel:[phone] [facility] [facility] [address], [place], [place], [address], [place] tel:[phone] [facility] Muscle weakness (generalized)Othe r muscle spasmOther specified disorders of urinary systemPelvic and perineal pain Apr-2 5-201 8 Mike Soteloi. [address] [facility], [address], [place], [facility], . tel:[phone] Referring Provider: Jordan Bauman [address] [facility] [address] [facility], [place], [facility]. tel:[phone] [facility] [address] [address], [place], [place], [address], tel:[phone] [facility] Muscle weakness (generalized)Othe r muscle spasmOther specified disorders of urinary systemPelvic and perineal pain Mar-2 0-201 8 Mike Knottisti. [address] [facility], [address], [place], [facility], [place]. tel:[phone] Referring Provider: Jordan Bauman [facility] [address] [facility], [place], [address]. tel:[phone] [facility] [address] [facility] [address], [place], [place], [id number], [place] tel:[phone] [facility] Muscle weakness (generalized)Othe r muscle spasmOther specified disorders of urinary systemPelvic and perineal pain Hector-1 3-201 8 Mike Alicia. [address] [facility], [address], [place], [facility], [place]. tel: [phone] Referring Provider: Jordan Bauman [address] [facility], [place], [address]. tel:[phone] [facility] [facility] [address], [place], [id number], [place] tel:[phone] [facility] Muscle weakness (generalized)Othe r muscle spasmOther specified disorders of urinary systemPelvic and perineal pain Hector-0 4-201 8 Mike Alicia. [address] [facility], [address], [place], [place], [facility], . tel:[phone] Referring Provider: Jordan Bauman [address] [facility] [address] [facility], [place], [facility]. tel:[phone], [id number], tel:[phone] [facility] Muscle weakness (generalized)Othe r muscle spasmOther specified disorders of urinary systemPelvic and perineal pain February-1 7-201 8 Mike Alicia. [address] [place] [address], [address], [place], [place], [facility], [place]. tel:[phone] Referring Provider: Jordan Bauman [address] [facility] [address] [facility], [place], [facility]. tel:[phone], [id number], tel:[phone] [facility] Muscle weakness (generalized)Othe r muscle spasmOther specified disorders of urinary systemPelvic and perineal pain May-1 0-201 8 Mike Alicia. [address] [place] [address], [address], [place], [facility], [place]. tel:[phone] Referring Provider: Jordan Bauman [address] [facility] [address] [facility], [place], [facility]. tel:[phone], [id number], tel:[phone] [facility] Muscle weakness (generalized)Othe r muscle spasmOther specified disorders of urinary systemPelvic and perineal pain Apr-2 5-201 8 Mike Alicia. [address] [facility], [address], [place], [facility], [place]. tel:[phone] Referring Provider: Jordan Bauman [address] [facility] [address] [facility], [place], [facility]. tel:[phone] [facility] [facility], [place], [id number], [place] tel:[phone] [facility] Muscle weakness (generalized)Othe r muscle spasmOther specified disorders of urinary systemPelvic and perineal pain Apr-1 8-201 8 Mike Vargas. [address] [facility], [address], [place], [facility], [place]. tel:[phone] Referring Provider: Jordan Bauman [address] [facility] [address] [facility], [place], [facility]. tel:[phone] [facility] [address] [address], [place], [place], [address], tel:[phone] [facility] Muscle weakness (generalized)Othe r muscle spasmOther specified disorders of urinary systemPelvic and perineal pain Apr-1 3-201 8 Mike Vargas. [address] [facility], [address], [place], [facility], [place]. tel:[phone] Referring Provider: Jordan Bauman [address] [facility] [address] [facility], [place], [facility]. tel:[phone] [facility] [address] [address], [place], [place], [address], [place] tel:[phone] [facility] Muscle weakness (generalized)Othe r muscle spasmOther specified disorders of urinary systemPelvic and perineal pain Apr-0 6-201 8 Mike Vargas. [address] [facility], [address], [place], [facility], [place]. [phone] Referring Provider: Maxx Coates [address] [facility] [address] [facility], [place], [address]. tel:[phone] [facility] [facility] [address], [place], [address], [place] tel:[phone] [facility] Muscle weakness (generalized)Othe r muscle spasmOther specified disorders of urinary systemPelvic and perineal pain Mar-2 8-201 8 Mike Alicia. [address] [facility], [address], [place], [facility], [place]. tel:[phone] Referring Provider: Jordan Bauman [address] [facility] [address] [facility], [place], [facility]. tel:[phone], [id number], tel:[phone] [facility] Muscle weakness (generalized)Othe r muscle spasmOther specified disorders of urinary systemPelvic and perineal pain Mar-2 1-201 8 Mike Alicia. [address] [facility], [address], [place], [place], [facility], [place]. tel:[phone] Referring Provider: Salina Bauman[address] [place] [address] Suite [facility], [place], [facility]. tel:[phone] [address], [place], [address], [place] tel:[phone] [facility] No Information Mar-1 2-201 8 Mike Alicia. [address] [facility], [address], [place], [place], [facility], [place]. tel:[phone] Referring Provider: Jordan Bauman [facility] [address] [facility], [place], [facility]. tel:[phone] [facility] [address] [place] [address], [id number], [place] tel:[phone] [facility] No Information Mar-0 7-201 8 Mike Alicia. [address] [facility], [address], [place], [facility], [place]. tel:[phone] Referring Provider: Jordan Bauman [address] [facility] [address] [facility], [place], [facility]. tel:[phone] [facility] [address] [place] [address] [address], [place], [place], [address], [place] tel:[phone] [facility] No Information 8 Mike Knottisti. [address] [facility], [address], [place], [facility], . tel: [phone] Referring Provider: Maxx Coates [address] [place] [address] Suite [facility], [place], [facility]. tel:[phone], [id number], tel:[phone] [facility] No Information Mike Knottisti. [address] [facility], [address], [place], [facility], . tel: [phone] Referring Provider: Maxx Coates [address] [place] [address] [place] [address], [facility]. tel:[phone], [id number], tel:[phone] [facility] No Information Mike Alicia. [address] [facility], [address], [place], [facility], . tel: [phone] Referring Provider: Maxx Coates [address] [place] [address] [address] [facility], [place], [place], [facility]. tel:[phone], [id number], tel:[phone] [facility] No Information Mike Alicia. [address] [facility], [address], [place], [facility], . tel:[phone] Referring Provider: Maxx Coates [address] [place] [address] [place] [address], [facility]. tel:[phone], [id number], tel:[phone] [facility] No Information Mike Vargas. [address] [facility], [address], [place], [facility], . tel: [phone] Referring Provider: Maxx Coates [address] [place] [address] Suite [facility], [place], [place], [facility]. tel:[phone], [id number], tel:[phone] [facility] Urethral discharge without blood Mike Vargas. [address] [facility], [address], [place], [facility], . tel:[phone] Referring Provider: Maxx Coates [address] [place] [address] Suite [facility], [place], [facility]. tel:[phone], [id number], tel:[phone] [facility] No Information Mike Vargas. [address] [facility], [address], [place], [facility], . tel:[phone] Referring Provider: Maxx Coates [address] [place] [address] [address] [facility], [place], [facility]. tel:[phone], [id number], tel:[phone] [facility] No Information Mike Vargas. [address] [facility], [address], [place], [facility], . tel:[phone] Referring Provider: Maxx Coates [address] [place] [address] [place] [address], [facility]. tel:[phone], [id number], tel:[phone] [facility] No Information Mike Vargas. [address] [facility], [address], [facility], [place]. tel:[phone] Referring Provider: Maxx Coates [address] [place] [address] Suite [facility], [place], [address]. tel:[phone], [id number], [place] tel:[phone] [facility] No Information Mike Vargas. [address] [facility], [address], [place], [address], [place]. tel:[phone] Referring Provider: Maxx Coates [address] [place] [address] [address] [facility], [place], [address]. tel:[phone], [id number], [place] tel:[phone] [facility] No Information Mike Vargas. [address] [facility], [address], [place], [facility], [place]. tel:[phone] Referring Provider: Maxx Coates [address] [place] [address] [address] [facility], [place], [address]. tel:[phone], [id number], [place] tel:[phone] [facility] No Information Mike Vargas. [address] [facility], [address] [place] [address], [address], [place]. tel:[phone] Referring Provider: Maxx Coates [address] [place] [address] [address] [facility], [place], [address]. tel:[phone], [id number], tel:[phone] [facility] No Information Mike Alicia. [address] [facility], [address], [place], [facility], . tel:[phone] Referring Provider: Maxx Coates [address] [place] [address] [address] [facility], [place], [address]. tel:[phone] [address], [place], [id number], tel:[phone] [facility] No Information Mike Alicia. [address] [facility], [address], [place], [facility], . tel:[phone] Referring Provider: Maxx Coates [address] [place] [address] [address] [facility], [place], [facility]. tel:[phone], [place], [id number], tel:[phone] [facility] No Information Mike Alicia. [address] [facility], [address], [place], [facility], [place]. tel:[phone] Referring Provider: Maxx Coates [facility] Suite [facility], [place], [address]. tel:[phone] [address], [place], [id number], tel:[phone] [facility] No Information Mike Alicia. [address] [facility], [address], [place], [facility], [place]. tel:[phone] Referring Provider: Maxx Coates [facility] Suite [facility], [place], [address]. tel:[phone] [address], [place], [place], [id number], tel:[phone] [facility] No Information 7 Mike Alicia. [address] [facility], [address], [place], [place], [facility], . tel:[phone] Referring Provider: Salina Bauman55 [address] [facility] [address] [facility], [place], [address]. tel:[phone] [address], [place], [place], [id number], tel:[phone] [facility] No Information 7 Mike Alicia. [address] [facility], [address], [place], [place], [facility], . tel:[phone] Referring Provider: Salina Bauman[address] [place] [address] Suite [facility], [place], [place], [facility]. tel:[phone] [place] [address] [address], [place], [place], [id number], tel:[phone] [facility] No Information 7 Mike Alicia. [address] [place] [address], [address], [place], [place], [facility], . tel:[phone] Referring Provider: Maxx Coates [address] [place] [address] [address], [place], [address]. tel:[phone], [place], [place], [id number], tel:[phone] [facility] No Information 7 Mike Alicia. [address] [facility], [address], [place], [facility], . tel:[phone] Referring Provider: Maxx Coates [facility] [address] [facility], [place], [address]. tel:[phone] [address], [place], [place], [address], tel:[phone] [facility] No Information 7 Mike Alicia. [address] [facility], [address], [place], [facility], . tel:[phone] Referring Provider: Salina Bauman[address] [place] [address] Suite [facility], [place], [place], [facility]. tel:[phone], [place], [id number], tel:[phone] [facility] No Information Mar- 7 Mike Alicia. [address] [place] [address], [address], [place], [facility], . tel:[phone] Referring Provider: Salina Bauman[address] [place] [address] Suite [facility], [place], [place], [facility]. tel:[phone], [id number], tel:[phone] [facility] No Information Mar-0 7 Mike Alicia. [address] [place] [address], [address], [place], [facility], [place]. tel:[phone] Referring Provider: Jordan Bauman [address] [facility] [address] [facility], [place], [facility]. tel:[phone], [id number], tel:[phone] [facility] No Information 7 Mike Alicia. [address] [place] [address], [address], [place], [facility], . tel:[phone] Referring Provider: Salina Bauman[address] [place] [address] Suite [facility], [place], [address]. tel:[phone], [id number], tel:[phone] [facility] Frequency of micturitionOther specified disorders of urinary system 201 7 Mike Alicia. [address] [place] [address], [address], [place], [facility], [place]. tel:[phone] Referring Provider: Maxx Coates [address] [address] [facility] [address] [facility], [place], [address]. tel:[phone] [address], [place], [address], tel:[phone] [facility] No Information 6 Mike Alicia. [address] [place] [address], [address], [place], [facility], . tel:[phone] Referring Provider: Maxx Coates [address] [address] [facility] [address] [facility], [place], [facility]. tel:[phone], [id number], tel:[phone] [facility] No Information 6 Mike Alicia. [address] [place] [address], [address], [place], [facility], . tel:[phone] Referring Provider: Salina Bauman55 [address] [facility] [address] [facility], [place], [address]. tel:[phone] [address] [place] [address], [id number], tel:[phone] [facility] No Information 6 Mike Alicia. [address] [place] [address], [address], [place], [facility], . tel:[phone] Referring Provider: Maxx Coates [address] [facility], [place], [address]. tel:[phone], [id number], tel:[phone] [employer] [facility] No Information 6 Mike Alicia. [address] [facility], [address], [place], [facility], . tel:[phone] Referring Provider: Maxx Coates [address], [place], [address]. tel:[phone], [place], [place], [id number], tel:[phone] [facility] No Information 6 Mike Alicia. [address] [facility], [address], [place], [facility], . tel: [phone] Referring Provider: Maxx Coates [facility] [address], [place], [address]. tel:[phone] [address], [place], [place], [id number], tel:[phone] [employer] Information 6 Mike Alicia. [address] [place] [address], [address], [place], [facility], . tel: [phone] Referring Provider: Maxx Coates [facility] [address], [place], [address]. tel:[phone] [address], [place], [address], [place] tel:[phone] [employer] Information 6 Mkie Alicia. [address] [place] [address], [address], [place], [facility], . tel:[phone] Referring Provider: Maxx Coates [address] [address] [facility] [address], [place], [address]. tel:[phone] [address], [place], [address], [place] tel:[phone] [employer] Information 6 Mike Alicia. [address] [place] [address], [address], [place], [facility], . tel: [phone] Referring Provider: Maxx Coates [facility] [address], [place], [address]. tel:[phone] [address], [place], [place], [address], tel:[phone] [facility] Larry Dyspareunia 6 Mike Alicia. [address] [facility], [address], [place], [facility], . tel:[phone] Referring Provider: Maxx Coates [address] [place] [address] Suite [facility], [place], [facility]. tel:[phone] [facility] [address] [facility], [place], [place], [address], tel:[phone] [facility] No Information 6 Mike Alicia. [address] [place] [address], [address], [place], [facility], . tel:[phone] Referring Provider: Maxx Coates [address] [place] [address] Suite [facility], [place], [address]. tel:[phone] [facility] [address] [facility] [address], [place], [place], [id number], tel:[phone] [facility] No Information 6 Mike Alicia. [address] [facility], [address], [place], [facility], . tel:[phone] Referring Provider: Maxx Coates [address] [place] [address] Suite [facility], [place], [address]. tel:[phone] [facility] [address] [facility], [place], [place], [address], tel:[phone] [facility] No Information 6 Mike Alicia. [address] [facility], [address], [place], [facility], . tel:[phone] Referring Provider: Maxx Coates [address] [place] [address] Suite [facility], [place], [address]. tel:[phone] [facility] [facility] 300, [place], [place], [address], tel:[phone] [facility] No Information 7-201 5 Mike Alicia. [address] [facility], [address], [place], [facility], . tel:[phone] Referring Provider: Maxx Coates [address] [place] [address] Suite [facility], [place], [address]. tel:[phone], [place], [place], [address], tel:[phone] [facility] No Information 0-201 5 Mike Alicia. [address] [facility], [address], [place], [facility], [place]. tel:[phone] Referring Provider: Maxx Coates [address] [place] [address] Suite [facility], [place], [address]. tel:[phone] [address] [address], [place], [id number], [place] tel:[phone] [facility] No Information 5- 5 Mike Alicia. [address] [facility], [address], [place], [facility], [place]. tel:[phone] Referring Provider: Maxx Coates [address] [place] [address] Suite [facility], [place], [address]. tel:[phone] [address] [address], [place], [place], [address], [place] tel:[phone] [facility] Other muscle spasmMuscle weakness (generalized)Pelv ic and perineal painUrgency of urinationPelvic muscle wasting 8-201 5 Mike Alicia. [address] [facility], [address], [place], [facility], [place]. tel:[phone] Referring Provider: Maxx Coates [address] [place] [address] Suite [facility], [place], [address]. tel:[phone] [address], [place], [address], [place] tel:[phone] [facility] No Information 5 Mike Alicia. [address] [facility], [address], [place], [address], [place]. tel:[phone] Referring Provider: Salina Bauman55 [address] [facility] [address] [facility], [place], [address]. tel:[phone] [address], [place], [place], [address], [place] tel:[phone] [facility] No Information 4 Mike Alicia. [address] [facility], [address], [place], [address], [place]. tel:[phone] Referring Provider: Salina Bauman[address] [place] [address] [address], [place], [address]. tel:[phone] [address], [place], [address], [place] tel:[phone] [facility] No Information 4 Mike Alicia. [address] [facility], [address], [place], [address], [place]. tel:[phone] Referring Provider: Jordan Bauman [facility] [address], [place], [address]. tel:[phone] [address], [place], [address], [place] tel:[phone] [facility] No Information Jun- 4 Mike Alicia. [address] [facility], [address], [place], [address], [place]. tel:[phone] Referring Provider: Salina Bauman[address] [facility] [address], [place], [address]. tel:[phone], [place], [place], [address], [place] tel:[phone] [facility] No Information 4 Mike Alicia. [address] [facility], [address], [place], [facility], . tel: [phone] Referring Provider: Maxx Coates [address] [address] [facility] [address] [facility], [place], [address]. tel:[phone] [address], [place], [address], tel:[phone] [facility] No Information 4 Mike Alicia. [address] [facility], [address], [place], [facility], . tel: [phone] Referring Provider: Maxx Coates [address] [address] [facility] [address] [facility], [place], [facility]. tel:[phone], [id number], tel:[phone] [facility] No Information 0 4 Mike Alicia. [address] [place] [address], [address], [place], [facility], [place]. tel: [phone] Referring Provider: Salina Bauman55 [address] [facility] [address] [facility], [place], [address]. tel:[phone], [id number], tel:[phone] [facility] No Information 4 Mike Alicia. [address] [facility], [address], [place], [facility], [place]. tel: [phone] Referring Provider: Maxx Coates [address] [address] [facility] [address] [facility], [place], [address]. tel:[phone], [id number], tel:[phone] [facility] No Information 3 4 Mike Alicia. [address] [facility], [address], [place], [facility], [place]. tel: [phone] Referring Provider: Salina Bauman[address] [facility] [address], [place], [address]. tel:[phone] [address], [place], [place], [address], tel:[phone] [facility] No Information 4 Mike Alicia. [address] [facility], [address], [place], [facility], . tel:[phone] Referring Provider: Maxx Coates [address] [address] [facility] [address] [facility], [place], [address]. tel:[phone] [address], [place], [place], [address], tel:[phone] [facility] No Information 4 Mike Alicia. [address] [place] [address], [address], [place], [facility], . tel:[phone] Referring Provider: Jordan Bauman [address] [facility] [address] [facility], [place], [address]. tel:[phone] [place] [address], [id number], tel:[phone] [facility] No Information 4 Mike Alicia. [address] [place] [address], [address], [place], [facility], . tel:[phone] Referring Provider: Salina Bauman[address] [facility] [address], [place], [address]. tel:[phone] [address], [place], [address], tel:[phone] [facility] No Information 4 Mike Alicia. [address] [facility], [address], [place], [facility], . tel:[phone] Referring Provider: Maxx Coates [address] [address] [facility] [address], [place], [address]. tel:[phone], [place], [address], tel:[phone] [facility] No Information 4 Mike Alicia. [address] [facility], [address], [facility], . tel:[phone] Referring Provider: Maxx Coates [address] [place] [address] [place] [address], [facility]. tel:[phone] [address], [place], [address], tel:[phone] [facility] No Information 4 Mike Alicia. [address] [place] [address], [address] [place] [address], [facility], . tel:[phone] Referring Provider: Maxx Coates [address] [place] [address] [place] [address], [facility]. tel:[phone], [id number], tel:[phone] [facility] No Information 4 Mike Alicia. [address] [place] [address], [address] [place] [address], [facility], . tel:[phone] Referring Provider: Maxx Coates [address] [place] [address] [place] [address], [facility]. tel:[phone], [id number], tel:[phone] [facility] Muscle weakness (generalized) 6 4 Mike Alicia. [address] [place] [address], [address], [place], [facility], . tel:[phone] Referring Provider: Maxx Coates [address] [place] [address] Suite [facility], [place], [place], [facility]. tel:[phone] Family History Family Member Type Diagnosis Age At Onset No Information Payers Payer name Insurance type Covered constitution party ID Authoriza tion(s) [employer] [place] [id number] Social History Type Description Quantity Date Captured Comments Sex Female Smoking Status No Information Chief Complaint And Reason For Visit No Information Reason For Referral Reason For Referral No Information Plan Of Treatment Date Type Action Status Referral Ordered: Weight management: Referral to physician timeframe: 1 Month (related to Underweight) ordered Referral Ordered: Referral: PCP timeframe 1 week. (related to Underweight) ordered History Of Present Illness Encounter Date Complaint History Of Prese nt Illness No Information Functional Status Date Functional Assessmen t No Information Instructions Date Instruction Additional Infor mation No Information Assessments Type Assessment Date No Information Patient Care Teams Name Effective Dates (start - stop) Status Members No Information
== END 2024-11-08 12:03 | disposition home or self-care (01) ==
PROVIDERS: PCP Internal Medicine; Visit Provider Clinical Nurse Specialist
DX: R51.9 Headache, unspecified (principal); G89.29 Other chronic pain
CPT/HCPCS: 70553; A9577

== ENCOUNTER 2024-12-12 05:23 | Day surgery (SDC) | payer OTHER, SELFPAY ==
[2024-11-26 14:49] VITALS: BMI 25.8
--- OUTSIDE RECORDS SUMMARY | 2024-12-12 05:26 | XMS_ITS | Clinical Summary ---
Author Organization [facility] Address [address] [place] [address] Care Team Providers Care Pin Drafter Operator Name Role Phone Ro Mahoney MD Primary Care Provider [phone] Social History Tobacco Use Types Packs/Day Years Used Date Smoking Tobacco: Never Assessed Comments Unknown Sex and Gender Information Value Date Recorded Sex Assigned at Not on file Legal Sex Female 8:15 PM CDT Gender Identity Not on file Sexual Orientation Not on file Plan of Treatment Health Maintenance Due Date Last Done Comments Cervical Cancer Screening Pa p Smear (Age 30 to 64) Every 3 Years 1984 Annual Physical 1987 Hepatitis C 2002 DTaP, Tdap and Td Vaccines ( 1 - Tdap) 2003 Hepatitis B Vaccines (1 of 3 - 19+ 3-dose series) 2003 Cervical Cancer Screening Pa p with HPV Testing (Age 30 to 64) Every 5 Years 2014 Cervical Cancer Screening with HPV 2014 COVID-19 Vaccine (2023-2 5 season) 2024 Influenza Adult (#1) 2024 Mammogram Screening 2024 HPV Vaccines Aged Out No longer eligi ble based on patient's age to complete this topic Meningococcal B Vaccine Aged Out No l onger eligible based on patient's age to complete this topic Meningococcal Vaccine Aged Out No lanny macho eligible based on patient's age to complete this topic Pneumococcal Vaccine: Pediat rics (0 to 5 Years) and At-Risk Patients (6 to 64 Years) Aged Out No longer eligible b ased on patient's age to complete this topic RSV Immunizations Under 20 Months Aged Out No longer eligible based on patient's age to complete this topic Care Teams Pin Drafter Operator Relationship Specialty Start Date End Date Ro Mahoney MD [phone] (work) PCP - General 12/25/10
--- OUTSIDE RECORDS SUMMARY | 2024-12-12 05:26 | XMS_ITS | Data Portability ---
Author Organization [facility], Radiology_ Address [address] [place] [address] Care Team Providers Care Soil Field Technician Name Role Phone DEANNA CHAN Primary Care Provider [phone] Assessment No assessment recorded. Plan of Treatment Reminders Order Date Submit Date Provider Last Modified By Organization Details Last Modified Time Details Appointments None recorded. Lab None recorded. Referral None recorded. Procedures None recorded. Surgeries None recorded. Imaging None recorded. Medication Orders tobramycin 0.3 % eye drops 2018 019 INTERFACE [id number], [address] , [place], [address], 9 16:36:10 Patient TargetsNo targets recorded. Patient Instructions Encounter Date Encounter Id Patient Instructions Last Modified By Organization Details Last Modified Time 02/18/2019 [id number] sergio: care instructions [email or web address] Not available 02/18/2019 16:36:08 Reason for Referral None Reported. Problems Name Problem SNOMED Code Status Onset Date Resolution Date Notes Provider Name and Address Organization Details Recorded Time Attention deficit hyperactivity disorder 662100344 Active 2018 Delores child [facility] 9 15:40:55 Anxiety 70702271 Active 2018 Delores child [facility] 9 15:41:01 Depressive disorder 05756581 Active 2018 Delores child [facility] 9 15:41:08 Panic attack 491817245 Active 2018 Delores child [facility] 9 15:41:24 Migraine 28556565 Active 2018 Delores child [facility] 9 15:41:31 Problem Notes None recorded. Procedures Surgical History Date Name Laterality Status Provider Name and Address Organization Details Recorded Time cholecystectomy completed Delores [facility] 02/18/2019 16:09:51 Imaging Results None recorded. Procedure Notes None recorded. Medical Equipment None Reported. Allergies Allergen ID Allergen Name Allergen Category Reaction Reaction Severity Criticality Documentation Date Start Date Code Code System Note Provider Name and Address Organization Details Recorded Time 7885 benzocain e / resorcino l medicatio n Not available Not available Not available 02/18/2019 96968 7 RxNorm Deloresana laura Cantu [facility] 9 15:40:31 Medications Name Sig Start Date Stop Date Status Note LastModified by Organization Details LastModified Time quetiapine 25 mg tablet active Not Available Not Available Not Available ondansetron HCl 8 mg tablet active Not Available Not Available Not Available phenazopyrid ine 200 mg tablet active Not Available Not Available Not Available ciprofloxaci n 500 mg tablet active Not Available Not Available Not Available lamotrigine 25 mg tablet active Not Available Not Available Not Available erythromycin 5 mg/gram (0.5 %) eye ointment active Not Available Not Available Not Available diclofenac 0.1 % eye drops active Not Available Not Available Not Available tobramycin 0.3 % eye drops INSTILL 1 DROP INTO AFFECTED EYE(S) BY OPHTHALMIC ROUTE EVERY 6 HOURS 7 DAYS 2018 active Not Available Not Available Not Avai lable nystatin 100,000 unit/gram topical cream active Not Available Not Available Not Available olopatadine 0.1 % eye drops active Not Available Not Available Not Available polymyxin B sulfate 10,000 unit-trimeth oprim 1 mg/mL eye drops active Not Available Not Available Not Available sertraline 25 mg tablet active Not Available Not Available Not Available lorazepam 1 mg tablet active Not Available Not Available No t Available dicyclomine 10 mg capsule active Not Available Not Available Not Available eszopiclone 1 mg tablet active Not Available Not Available Not Available Creon 24,000-76,00 0-120,000 unit capsule,adela yed release active Not Available Not Available Not Available Vitals Date Recorded Heart rate Respiratory rate Body temperature Body weight Body height Body mass index (BMI) Oxygen saturation Oxygen saturation in Arterial blood by Pulse oximetry Systolic blood pressure Diastolic blood pressure Provider Name and Address Organization Details Last Updated DateTime 9 74 /min 17 /min 98.6 [degF] 20134.2 9 g 177.8 cm 18.6 kg/m2 98 % 98 % 114 mm[Hg] 62 mm[Hg] Delores Fiske [facility] 9 16:00:44 Social History Question Answer Notes LastModified by Organizat ion Details LastModified Time Tobacco Smoking Status Never Smoker Not Available [facility] 08/06/2020 03:12:58 What Is Your Level Of Alcohol Consumption? None [id number] Information not available 08/06/2020 Which Illicit Or Recreational Drugs Have You Used? Never [id number] Information not available 08/06/2020 What Was The Date Of Your Most Recent Tobacco Screening? 02/18/2019 [id number] Information not available 08/06/2020 Sex: Unknown Functional Status None recorded. Mental Status None recorded. Family History Relationship Description Onset Age of this Age Resolved Age Notes LastModified by Organization Details LastModified Time Father Heart disease [email or web address] Not available 2018 15:41:43 Father Diabetes mellitus [email or web address] Not available 2018 15:41:51 Mother Parkinson's disease [email or web address] Not available 2018 15:42:06 Paternal Grandmother Malignant tumor of colon [email or web address] Not available 2018 15:42:32 Maternal Grandfather Malignant tumor of pharynx [email or web address] Not available 2018 16:09:26 Medical History Condition Response Coronary Artery Disease N Other N Gout N Kidney Stones N Blood Diseases N Hyperthyroidism N Breast Cancer N Blood Transfusion N COPD N Depression Y Lung Disease N Hypothyroidism N Defects or Inherited Disease N Developmental or Behavioral Disorders N Breast Problem N Difficulty Swallowing N Anesthesia Complications N Meniere's disease N Anxiety Disorder Y Muscle, Joint, or Bone Problems N Obesity N Vision or Eye Problems N Arthritis N Polyps N Infertility N Mental Disorder N Cancer N Varicosities N Stroke N Endometriosis N Bladder or Kidney Problems N High Cholesterol N Liver Disease N Fibromyalgia N Headaches N Kidney Disease N Allergies/Hayfever Y Heart Problems N Ear or Hearing Problems N Hospitalizations N Thyroid Problems N GI Problems N ADD/ADHD Y Skin Problems N Eating Disorder N Anemia N MRSA exposure N Constipation N Mental Illness N Ovarian Cancer N Diabetes N Bedwetting N Seizures/Epilepsy N Tuberculosis N AIDS/HIV N Congestive Heart Failure (CHF) N Eczema N Diverticulitis N Abuse/Domestic Violence N Asthma N Reflux/GERD N Hepatitis N Heart Disease N Pulmonary Embolism N Pre-Eclampsia N Hypertension N Chronic Ear Infections N Osteoporosis N Chicken Pox N Autism Spectrum Disorder (ASD) N Thrombophilias N Gynecological HistoryNo gynecological history recorded. Obstetrics History GPAL:G 0 P 0 0 0 0 Past Encounters Encounter ID Performer Location Encounter Start Date Encounter Closed Date Diagnosis/Indication Diagnosis SNOMED-CT Code Diagnosis ICD10 Code Diagnosis Note [id number] Azael Mcgee [facility] [address], [address] [place] [address] 02/18/2019 15:35:55 02/20/2019 15:41:11 Acute conjunctivitis 56452782 H10.31 Health Concerns Section Related Observation LastModified by Organization Detai ls LastModified Time None Recorded Concern Status LastModified by Organization Details LastModified Time None Recorded Advance Directives Directive None Recorded Payers Encounter Date Sequence Insurance Name Policy Number Policy R[place] Covered Member ID Ragsdale Member ID Guarantor Name 02/18/2019 1 [facility] [id number] Notes Date Note Type Note Provider Name and Address Organization Details Recorded Time 02/18/2019 text/html Pt presents to urgent care with c/o R eye pain since 9pm last night. Pt stated she was at a friends house last night and felt something fly into her R eye. Pt stated at that point she rubbed and flushed her eye and did not see anything. Pt stated her friend do have a cat, in which she is allergic to. Pt stated she wanted to get her eye checked ut and to see if the eye problem was from the cat. Azael Mcgee [address], [place], [address], [facility] 02/18/2019 17:39:56 OBGyn Episode No OBEpisode recorded.
--- OUTSIDE RECORDS SUMMARY | 2024-12-12 05:26 | XMS_ITS ---
Author Organization [facility] Address [address] [place] [address] Care Team Providers Care Retail Commission Sales Associate Name Role Phone Reta Holt Unavailable [phone] REASON FOR VISIT Lorazepam script Medications Medication SIG (Take, Route, Fr equency, Duration) Notes Start Date End Date Status LORazepam 0.5 MG TAKE 1-2 TABLETS BY MOUTH TWICE DAILY NEEDED FOR PANIC for 30 days 06/28/2023 Active Social History Sex Assigned At : Social History Observation Description Sex Assigned At Female Encounters Encounter Location Date Provider Diagnosis [address] [address] 06/27/2023 Reta Holt Generalized anxiety disorder F41.1 Assessments Encounter Date Diagnosis (ICD Code) Assessment Notes Treatment Notes Treatment Clinical Notes Section Notes 06/27/2023 Generalized anxiety disorder (ICD-10 - F41.1) Plan Of Treatment Medication Medication Name Sig Start Date Stop Date Notes LORazepam 0.5 MG TAKE 1-2 TABLETS BY MOUTH TWICE DAILY NEEDED FOR PANIC for 30 days 06/28/2023 [facility] Notes * HEADMichaelB: 984 (37 yo F)Acc No.[id number]:06/27/2023 Patient: Delores Harris :1985 A ge:37 Y S ex:Female Address:[address] [place], [address] * Refills Refill LORazepam Tablet, 0.5 MG, 40, TAKE 1-2 TABLETS BY MOUTH TWICE DAILY NEEDED FOR PANIC, 30 days, Refills=0 Subjective: * Chief Complaints: * L orazepam script * Medical History: * Surgical History: * Hospitalization/Major Diagno stic Procedure: * Medications: Objective: Assessment: * Assessment: 1. G eneralized anxiety disorder - F41.1 Plan: * Treatment: * Procedure Codes: * true * Date: Generated for Lory bedolla/Danae/Avelina on: 0 12/12/2024 05:26 AM HEAVY MEDIA OPERATOR
--- OUTSIDE RECORDS SUMMARY | 2024-12-12 05:26 | XMS_ITS ---
Author Organization [facility] Address [address] [place] [address] Care Team Providers Care Cement Mason Helper Name Role Phone JonathonRohan quinonezae Unavailable [phone] REASON FOR VISIT Refills Medications Medication SIG (Take, Route, Fr equency, Duration) Notes Start Date End Date Status LORazepam 1 MG TAKE 1 TABLET BY RIO TH TWICE DAILY NEEDED FOR PANIC for 30 03/16/2023 Active Social History Sex Assigned At : Social History Observation Description Sex Assigned At Female Encounters Encounter Location Date Provider Diagnosis [address] [address] 06/22/2023 Reta Holt Plan Of Treatment Medication Medication Name Sig Start Date Stop Date Notes LORazepam 1 MG TAKE 1 TABLET BY RIO TH TWICE DAILY NEEDED FOR PANIC for 30 03/16/2023 [facility] Notes * Brenden HEADGenevaB: 984 (37 yo F)Acc No.[id number]:06/22/2023 Patient: Delores Harris :1985 A ge:37 Y S ex:Female Address:[address] [place], [address] * Refills Refill LORazepam Tablet, 1 MG, 60 Tablet, TAKE 1 TABLET BY MOUTH TWICE DAILY NEEDED FOR PANIC, 30, Refills=0 * true * Date: Generated for Jesusi chioma/Danae/eTransmitting on: 0 12/12/2024 05:25 AM TEST EVALUATOR
--- OUTSIDE RECORDS SUMMARY | 2024-12-12 05:26 | XMS_ITS ---
Author Organization [facility] Address [address] [place] [address] Care Team Providers Care Steel Fitter Name Role Phone Philipp Burger DO Primary Care Provider Donnie Lucas Unavailable [phone] REASON FOR VISIT Appt and Refills Medications Medication SIG (Take, Route, Fr equency, Duration) Notes Start Date End Date Status ARIPiprazole 5 MG 1 tablet Orally Once a day for 30 days 10/23/2024 Active OLANZapine 10 MG 1 tablet Orally Once a day for 30 days Active Social History Sex Assigned At : Social History Observation Description Sex Assigned At Female Encounters Encounter Location Date Provider Diagnosis [facility] [address] [place] [address] 12/05/2024 Donnie Du Bipolar disorder, current episode mixed, unspecified F31.60 Assessments Encounter Date Diagnosis (ICD Code) Assessment Notes Treatment Notes Treatment Clinical Notes Section Notes 12/05/2024 Bipolar disorder, current episode mixed, unspecified (ICD-10 - F31.60) Plan Of Treatment Medication Medication Name Sig Start Date Stop Date Notes ARIPiprazole 5 MG 1 tablet Orally Once a day for 30 days 0 10/23/2024 OLANZapine 10 MG 1 tablet Orally Once a day for 30 days Next Appt Details Provider Name:Donnie de leon, 01/01/2025 04:30:00 PM, [address], [address], [place], [address], [facility] Notes * DAMIAN TAPIA NDOB:[birth year] (39 yo F)Acc No.[id number]:12/05/2024 Patient: DAMIAN ZAMUDIO :1985 A ge:39 Y S ex:Female Address:[address] [place], [place] [id number] * Refills Refill ARIPiprazole Tablet, 5 MG, Orally, 30, 1 tablet, Once a day, 30 days, Refills=1 Refill OLANZapine Tablet, 10 MG, Orally, 30 Tablet, 1 tablet, Once a day, 30 days, Refills=1 * true * Date: Generated for Lory bedolla/Danae/Siditting on: 0 12/12/2024 05:26 AM FAMILY WELFARE SOCIAL WORK PROFESSOR
--- OUTSIDE RECORDS SUMMARY | 2024-12-12 05:26 | XMS_ITS | Patient Health Record ---
Author Organization [facility] [employer] Address [address] [facility] [address] [place] [address] Care Team Providers Care Transportation Escort Name Role Phone Philipp Burger DO Primary Care Provider Donnie Lucas Unavailable [phone] Migration, Provider Unavailable Unavailable Allergies No Known Allergies Reason For Referral No Information Medications Medication SIG (Take, Route, Frequency, Duration) Notes Start Date End Date Status Zolpidem Tartrate 10 MG 1 tablet at bedtime Oral once a day for 30 days As needed 10/23/2024 Active ARIPiprazole 5 MG 1 tablet Orally Once a day for 30 days 10/23/2024 Active Sertraline HCl 100 MG 1 tablet Orally On ce a day for 90 days Active LORazepam 1 MG 1 tablet Oral twice daily for 30 days As needed 10/23/2024 Active OLANZapine 10 MG 1 tablet Orally Once a day for 30 days Active Divalproex Sodium ER 250 MG Take 1 table t by mouth once daily Oral Once a day for 90 days Active Triamcinolone Acetonide 0.1% External 02/21/2024 Active Zolpidem Tartrate 10 MG 1 tablet at bedt adolfo Oral once a day for 30 days 09/11/2024 Active Immunizations Vaccine Route Administration Date Status Comme nts Pfizer Biontech Covid-19 Vac cine 2nd dose Unknown 01/04/2021 Administered Pfizer Biontech Covid-19 Vac cine 2nd dose Unknown 01/30/2021 Administered Social History Tobacco Use: Social History Observation Description Date Details (start date - stop date) Never Smoker NA - NA Sex Assigned At : Social History Observation Description Sex Assigned At Female Tobacco Control (Standard) Question Answer Notes Tobacco use: Nonsmoker Problems Problem Type SNOMED Code ICD Code Onset Dates Problem Status W/U Status Risk Notes Problem Mixed bipolar I disorder (35932396) Bipolar disorder, current episode mixed, unspecified (F31.60) 4 Active confirmed Problem Generalized anxiety disorder (76903398) Generalized anxiety disorder (F41.1) 4 Active confirmed Problem Insomnia (189504213) Other insomnia (G47.09) 4 Active confirmed Vital Signs Heart Rate 64 /min 10/23/2024 Blood pressure diastolic 79 mm Hg 10/23/2024 Height-cm 175.26 cm 10/23/2024 Weight-kg 78.83 kg 10/23/2024 Height 69.00 in 10/23/2024 Blood pressure systolic 112 mm Hg 10/23/2024 Weight 173.8 lbs 10/23/2024 BMI 25.66 kg/m2 10/23/2024 Encounters Encounter Location Date Provider Diagnosis [facility] [address] [facility] [address] [place] [address] 01/22/2024 Donnie Du Bipolar disorder, current episode mixed, unspecified F31.60 ; Other insomnia G47.09 and Generalized anxiety disorder F41.1 [facility] [address] [address] 02/21/2024 Donnie Du Generalized anxiety disorder F41.1 ; Bipolar disorder, current episode mixed, unspecified F31.60 and Other insomnia G47.09 [employer] [facility] [address] [place] [address] [place] [address] 03/27/2024 Donnie Du Generalized anxiety disorder F41.1 ; Other insomnia G47.09 and Bipolar disorder, current episode mixed, unspecified F31.60 [facility] [address] [place] [address] [place] [address] 05/27/2024 Donnie Du Generalized anxiety disorder F41.1 ; Other insomnia G47.09 and Bipolar disorder, current episode mixed, unspecified F31.60 [facility] [address] [place] [address] [place] [address] 09/04/2024 Donnie Du Generalized anxiety disorder F41.1 ; Other insomnia G47.09 and Bipolar disorder, current episode mixed, unspecified F31.60 [facility] [employer] [facility] [address] [place] [address] [place] [address] 10/23/2024 Donnieadolfo [employer] Generalized anxiety disorder F41.1 ; Other insomnia G47.09 and Bipolar disorder, current episode mixed, unspecified F31.60 [facility] [employer] [facility] [address] [place] [address] [place] [address] 12/24/2023 Provider [facility] [employer], [facility] [address] [place] [address] [place] [address] 12/27/2023 Provider [facility] [employer], [facility] [address] [place] [address] [place] [address] 01/07/2024 Provider [facility] [employer], [facility] [address] [place] [address] [place] [address] 02/05/2024 [facility] [employer], [facility] [address] [place] [address] [place] [address] 03/06/2024 Provider [facility] [employer], [facility] [address] [place] [address] [place] [address] 03/08/2024 Provider [facility] [employer], [facility] [address] [place] [address] [place] [address] 03/09/2024 [facility] [employer], [facility] [address] [place] [address] [place] [address] 09/15/2024 Donnie Du [facility] [employer], [facility] [address] [place] [address] [place] [address] 12/05/2024 Donnie Du Bipolar disorder, current episode mixed, unspecified F31.60 Assessments Encounter Date Diagnosis (ICD Code) Assessment Notes Treatment Notes Treatment Clinical Notes Section Notes 03/27/2024 Generalized anxiety disorder (ICD-10 - F41.1) cont sertraline 100mg daily 03/27/2024 Other insomnia (ICD-10 - G47.09) cont zolpidem 10mg hs prn 05/27/2024 Generalized anxiety disorder (ICD-10 - F41.1) cont lorazepam 1mg prn, sertraline 100mg daily 1. Bipolar Disorder - Patient reports improvement with Depakote ER 250 mg daily and olanzapine at bedtime. Plan: - Continue Depakote ER 250 mg daily and olanzapine at bedtime. - Monitor for any manic or depressive symptoms. - Follow up in 3 months or sooner if any concerns arise. 2. Generalized Anxiety Disorder - Patient is taking sertraline 100 mg daily and lorazepam as needed, with reduced frequency of lorazepam use. Plan: - Continue sertraline 100 mg daily and lorazepam as needed. - Encourage the patient to seek therapy for additional support. - Follow up in 3 months or sooner if any concerns arise. 3. Insomnia - Patient reports difficulty falling asleep but staying asleep is not an issue. Currently taking Ambien for sleep. Plan: - Continue Ambien as prescribed. - Encourage good sleep hygiene practices. - Monitor for any changes in sleep patterns. - Follow up in 3 months or sooner if any concerns arise. 4. Eye symptoms related to anxiety - Patient reports eye symptoms occurring before or after anxiety attacks. Skip Operator believes it may be a side effect of medication. Plan: - Monitor eye symptoms and their relation to anxiety attacks. - Consider adjusting medications if symptoms worsen or become more frequent. - Follow up in 3 months or sooner if any concerns arise. 5. Sleep study - Patient is undergoing a sleep study due to excessive sleep and difficulty falling asleep. Plan: - Await results of the sleep study and address any findings accordingly. - Follow up in 3 months or sooner if any concerns arise. 09/04/2024 Generalized anxiety disorder (ICD-10 - F41.1) cont lorazepam 1mg prn, sertraline 100mg daily 1. Sleep apnea: - Patient reports mild sleep apnea diagnosed through an in-home sleep test. - Currently using a CPAP machine with some improvement. Plan: - Continue using CPAP machine. - Follow up with sleep specialist on the to discuss excessive daytime sleepiness and potential treatment options. 2. Insomnia: - Patient reports difficulty falling asleep at night despite taking Zolpidem. Plan: - Continue Zolpidem 10 mg at bedtime. - Discuss sleep issues with sleep specialist during upcoming appointment. 3. Excessive daytime sleepiness: - Patient experiences excessive daytime sleepiness despite using CPAP machine and taking vitamin D supplements. Plan: - Maintain current vitamin D supplementation. - Discuss excessive daytime sleepiness with sleep specialist during upcoming appointment. 4. Anxiety: - Patient reports manageable anxiety on current medication regimen. - Current medications: Sertraline 100 mg daily, Lorazepam 1 mg twice a day as needed. Plan: - Continue current medications and monitor anxiety levels. 5. Mood stabilization: - Patient reports stable mood on current medication regimen. - Current medications: Depakote 250 mg ER every evening, Olanzapine 10 mg every evening. Plan: - Continue current medications and monitor mood stability. 6. Vitamin D imbalance: - Patient currently taking 5000 IUs of vitamin D daily. Plan: - Continue vitamin D supplementation and monitor for any changes in symptoms. Follow-up: - Schedule a follow-up appointment in three months to assess the effectiveness of the current treatment plan and any changes in symptoms. 10/23/2024 Generalized anxiety disorder (ICD-10 - F41.1) cont lorazepam 1mg prn, sertraline 100mg daily 12/05/2024 Bipolar disorder, current episode mixed, unspecified (ICD-10 - F31.60) 01/22/2024 Bipolar disorder, current episode mixed, unspecified (ICD-10 - F31.60) 01/22/2024 Generalized anxiety disorder (ICD-10 - F41.1) 01/22/2024 Other insomnia (ICD-10 - G47.09) 02/21/2024 Bipolar disorder, current episode mixed, unspecified (ICD-10 - F31.60) 02/21/2024 Generalized anxiety disorder (ICD-10 - F41.1) 02/21/2024 Other insomnia (ICD-10 - G47.09) 03/27/2024 Bipolar disorder, current episode mixed, unspecified (ICD-10 - F31.60) start depakote er 250mg every evening cont olanzapine 10mg hs Plasma concentrations of OLANZapine Oral Tablet 10 MG may be decreased by Divalproex Sodium ER 10/23/2024 Other insomnia (ICD-10 - G47.09) zolpidem 10mg hs 09/04/2024 Other insomnia (ICD-10 - G47.09) zolpidem 10mg hs 1. Sleep apnea: - Patient reports mild sleep apnea diagnosed through an in-home sleep test. - Currently using a CPAP machine with some improvement. Plan: - Continue using CPAP machine. - Follow up with sleep specialist on the to discuss excessive daytime sleepiness and potential treatment options. 2. Insomnia: - Patient reports difficulty falling asleep at night despite taking Zolpidem. Plan: - Continue Zolpidem 10 mg at bedtime. - Discuss sleep issues with sleep specialist during upcoming appointment. 3. Excessive daytime sleepiness: - Patient experiences excessive daytime sleepiness despite using CPAP machine and taking vitamin D supplements. Plan: - Maintain current vitamin D supplementation. - Discuss excessive daytime sleepiness with sleep specialist during upcoming appointment. 4. Anxiety: - Patient reports manageable anxiety on current medication regimen. - Current medications: Sertraline 100 mg daily, Lorazepam 1 mg twice a day as needed. Plan: - Continue current medications and monitor anxiety levels. 5. Mood stabilization: - Patient reports stable mood on current medication regimen. - Current medications: Depakote 250 mg ER every evening, Olanzapine 10 mg every evening. Plan: - Continue current medications and monitor mood stability. 6. Vitamin D imbalance: - Patient currently taking 5000 IUs of vitamin D daily. Plan: - Continue vitamin D supplementation and monitor for any changes in symptoms. Follow-up: - Schedule a follow-up appointment in three months to assess the effectiveness of the current treatment plan and any changes in symptoms. 05/27/2024 Other insomnia (ICD-10 - G47.09) zolpidem 10mg hs 1. Bipolar Disorder - Patient reports improvement with Depakote ER 250 mg daily and olanzapine at bedtime. Plan: - Continue Depakote ER 250 mg daily and olanzapine at bedtime. - Monitor for any manic or depressive symptoms. - Follow up in 3 months or sooner if any concerns arise. 2. Generalized Anxiety Disorder - Patient is taking sertraline 100 mg daily and lorazepam as needed, with reduced frequency of lorazepam use. Plan: - Continue sertraline 100 mg daily and lorazepam as needed. - Encourage the patient to seek therapy for additional support. - Follow up in 3 months or sooner if any concerns arise. 3. Insomnia - Patient reports difficulty falling asleep but staying asleep is not an issue. Currently taking Ambien for sleep. Plan: - Continue Ambien as prescribed. - Encourage good sleep hygiene practices. - Monitor for any changes in sleep patterns. - Follow up in 3 months or sooner if any concerns arise. 4. Eye symptoms related to anxiety - Patient reports eye symptoms occurring before or after anxiety attacks. Skip Operator believes it may be a side effect of medication. Plan: - Monitor eye symptoms and their relation to anxiety attacks. - Consider adjusting medications if symptoms worsen or become more frequent. - Follow up in 3 months or sooner if any concerns arise. 5. Sleep study - Patient is undergoing a sleep study due to excessive sleep and difficulty falling asleep. Plan: - Await results of the sleep study and address any findings accordingly. - Follow up in 3 months or sooner if any concerns arise. 09/04/2024 Bipolar disorder, current episode mixed, unspecified (ICD-10 - F31.60) olanzapine 10mg hs, divalproex er 250mg hs 1. Sleep apnea: - Patient reports mild sleep apnea diagnosed through an in-home sleep test. - Currently using a CPAP machine with some improvement. Plan: - Continue using CPAP machine. - Follow up with sleep specialist on the to discuss excessive daytime sleepiness and potential treatment options. 2. Insomnia: - Patient reports difficulty falling asleep at night despite taking Zolpidem. Plan: - Continue Zolpidem 10 mg at bedtime. - Discuss sleep issues with sleep specialist during upcoming appointment. 3. Excessive daytime sleepiness: - Patient experiences excessive daytime sleepiness despite using CPAP machine and taking vitamin D supplements. Plan: - Maintain current vitamin D supplementation. - Discuss excessive daytime sleepiness with sleep specialist during upcoming appointment. 4. Anxiety: - Patient reports manageable anxiety on current medication regimen. - Current medications: Sertraline 100 mg daily, Lorazepam 1 mg twice a day as needed. Plan: - Continue current medications and monitor anxiety levels. 5. Mood stabilization: - Patient reports stable mood on current medication regimen. - Current medications: Depakote 250 mg ER every evening, Olanzapine 10 mg every evening. Plan: - Continue current medications and monitor mood stability. 6. Vitamin D imbalance: - Patient currently taking 5000 IUs of vitamin D daily. Plan: - Continue vitamin D supplementation and monitor for any changes in symptoms. Follow-up: - Schedule a follow-up appointment in three months to assess the effectiveness of the current treatment plan and any changes in symptoms. 05/27/2024 Bipolar disorder, current episode mixed, unspecified (ICD-10 - F31.60) olanzapine 10mg hs, divalproex er 250mg hs 1. Bipolar Disorder - Patient reports improvement with Depakote ER 250 mg daily and olanzapine at bedtime. Plan: - Continue Depakote ER 250 mg daily and olanzapine at bedtime. - Monitor for any manic or depressive symptoms. - Follow up in 3 months or sooner if any concerns arise. 2. Generalized Anxiety Disorder - Patient is taking sertraline 100 mg daily and lorazepam as needed, with reduced frequency of lorazepam use. Plan: - Continue sertraline 100 mg daily and lorazepam as needed. - Encourage the patient to seek therapy for additional support. - Follow up in 3 months or sooner if any concerns arise. 3. Insomnia - Patient reports difficulty falling asleep but staying asleep is not an issue. Currently taking Ambien for sleep. Plan: - Continue Ambien as prescribed. - Encourage good sleep hygiene practices. - Monitor for any changes in sleep patterns. - Follow up in 3 months or sooner if any concerns arise. 4. Eye symptoms related to anxiety - Patient reports eye symptoms occurring before or after anxiety attacks. Skip Operator believes it may be a side effect of medication. Plan: - Monitor eye symptoms and their relation to anxiety attacks. - Consider adjusting medications if symptoms worsen or become more frequent. - Follow up in 3 months or sooner if any concerns arise. 5. Sleep study - Patient is undergoing a sleep study due to excessive sleep and difficulty falling asleep. Plan: - Await results of the sleep study and address any findings accordingly. - Follow up in 3 months or sooner if any concerns arise. 10/23/2024 Bipolar disorder, current episode mixed, unspecified (ICD-10 - F31.60) olanzapine hs, divalproex er 250mg hs Plan Of Treatment Next Appt Details Provider Name:Donnie de leon, 01/01/2025 04:30:00 PM, [facility] [facility] [address] [facility] [address], [place], [address], Insurance Providers Payer Name Payer Address Payer Phone Subscriber Number Group Number Insured Name Patient Relationship to Insured Coverage Start Date Coverage End Date [employer] [address] [place] [address] [id number] 1 DAMIAN TAPIA Self - patient is the insured Medical (General) History Medical History History ICD Code Problems: Bipolar affective disorder, cu rrent episode mixed Drug-induced dystonia Generalized anxiety disorder Persistent insomnia , Surgical History Surgery Date(Month/Year) Removal of gallbladder (74793) 5
--- OUTSIDE RECORDS SUMMARY | 2024-12-12 05:26 | XMS_ITS | Clinical Summary ---
Author Organization [facility] Address [address] [place] [address] Phone Care Team Providers Care Dress Operator Name Role Phone Unavailable Primary Care Provider Unavailabl e Allergies Active Allergy Reactions Criticality Noted Date Comments Red Dye #40 (Allura Red) Hives,Rash Medications JF-Ttkitz-Gfjcez ne-Scopol ER 48.6 MG Tablet Controlled Release Active SBI/Protein Isolate 5 G Pack daily. Act dory LORazepam (ATIVAN) 1 MG Tablet daily. Active phenazopyridine (PYRIDIUM) 200 MG Tablet Active zolpidem (AMBIEN) 10 MG Tablet Active Sertraline HCl (ZOLOFT PO) Take 75 mg per day. 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 [facility] Gender Identity Not on file Sexual Orientation Not on file Plan of Treatment Health Maintenance Due Date Last Done Comments Hepatitis C Virus (HCV) Screening 1984 TdaP Immunization 1984 Hepatitis B Immunization (1 of 3 - 19+ 3-dose series) 2003 Pap Smear 2005 Cervical Cancer Screening (CCS) 2014 HPV/Cotest 2014 Influenza Immunization (#1) 2024 SARS-COV-2 Immunization ( season) 2024 Discussion re Starting/Frequ ency of Mammograms 2024 Respiratory Syncytial Virus (RSV) Immunization (Adult) (1 - 1-dose 75+ series) 2059 Meningococcal Immunization (ACWY) Aged Out No longer eligible based on patient's age to complete this topic Pneumococcal Immunization Combined Aged Out No longer eligible based on patient's age to complete this topic Rotavirus Immunization Aged Out No lo nger eligible based on patient's age to complete this topic
--- OUTSIDE RECORDS SUMMARY | 2024-12-12 05:27 | XMS_ITS | Clinical Summary ---
Author Organization [employer] [address] [place] [address] [place] [id number] Care Team Providers Care Cnc Supervisor Name Role Phone Tarun Barber MD Primary Care Provider Allergies Active Allergy Reactions Criticality Noted Date Comments Okpzzityqd-Ibr-Aupn-Vit s E,A,D Hives High 05/09/2017 Eszopiclone Other [...] mouth daily. Psych Dr Philipp Blount in [place] 1 Active lamoTRIgine (LaMICtal) 25 mg tablet [...] eating disorder, sees a food counselor and diagnostics tech Interstitial cystitis 05/29/2018 Pelvic floor dysfunction 05/29/2018 [...] Months Immunizations Immunization Administration Dates Next Due ([employer])(12 YR UP) COVID-19 VACCINE - EMERGENCY USE AUTHORIZATION, MRNA, [id number](PF) 30 MCG/0.3 ML IM SUSP 01/30/2021,01/04/2021 Family [...] 75 06/29/2021 2:04 PM CDT Temperature 37.2 C (99 F) 06/29/2021 2:04 PM CDT Respiratory Rate 14 11/04/2019 4:12 PM PROJECT ARCHITECT Oxygen Saturation 96% 06/29/2021 2:04 PM CDT [...] INFLUENZA VACCINE (#1) 2024 02/17/2021 COVID-19 Vaccine (3 - 2023- season) 2024 01/30/2021, 01/04/2021 BREAST CANCER SCREENING [...] TRICH (07/19/2023 9:54 AM CDT) COMMENT (PAP): [facility] [place] Comment: This order for age-based cervical cancer and STI screening follows ACOG guidelines(PB 168, 140, HOJ866). See individual assays for performing site location. CLINICAL INFORMATION [facility] [place] Comment:SCREENING LAST MENSTRUAL PERIOD [facility] [place] Comment:NONE GIVEN PREV PAP: [facility] [place] Comment:NONE GIVEN PREV BX: [facility] [place] Comment:NONE GIVEN SOURCE [facility] [place] Comment:Endocervix ADEQUACY: [facility] [place] Comment: Satisfactory for evaluation. Endocervical/transformation zone component present. Age and/or menstrual status not provided PAP INTERP [facility] [place] Comment: Cytology Results: Negative for intraepithelial lesion or malignancy. COMMENT (PAP TEST) [facility] [place] Comment: This Pap test has been evaluated with computer assisted technology. MOLD LAMINATOR: [facility] [place] Comment: ERIC, CT(ASCP) CT screening location: [place] [address] [place] [address] EXPLANATORY NOTE [facility] [place] Comment: EXPLANATORY NOTE: The Pap is a [...] information. HPV E6/E7 Not Detected Not Detected [facility] Comment: Methodology: Compressor House Operator-Mediated Amplification This assay detects E6/E7 viral messenger RNA (mRNA) from 14 high-risk HPV types (16,18,31,33,35,39,45,51,52,56,58,59,66,68). Cervical sources are required for HPV testing. If a vaginal source from a patient who has had a total hysterectomy with removal of cervix was submitted, please contact the testing laboratory for alternative testing options. For additional information, please refer to [email or web address] (This link if provided for information/ educational purposes only.) C TRAC RNA NOT DETECTED NOT DETECTED [facility] N.GONORRHOEAE RNA, TMA NOT DETECTED NOT DETECTED [facility] COMMENT INFECTIOUS DISEASE [facility] [place] Comment: The analytical performance characteristics of this assay, when used to test SurePath(TM) specimens have been determined by [facility]. The modifications have not been cleared or approved by the FDA. This assay has been validated pursuant to the CLIA regulations and is used for clinical purposes. For additional information, please refer to [email or web address] (This link is being provided for information/ educational purposes only.) TRICHOMONAS VAGINALIS,QUALITAT FREDRICK,PAP VIAL NOT DETECTED NOT DETECTED [facility] Comment: The analytical performance characteristics of this assay have been determined by [facility]. The modifications have not been cleared or approved by the FDA. This assay has been validated pursuant to the CLIA regulations and is used for clinical purposes. For additional information, please refer to [email or web address] (This link is being provided for information/ educational purposes only.) Test Performed at: [facility] [address] [address] [facility] OF ENDOCERVIX / Unknown 07/19/2023 9:54 AM CDT 07/20/2023 3:29 AM CDT Deanna Sparks DO PATHOLOGY/CYTOLOGY ORDERABLES Final Result [facility] [phone] [facility] [place] [address] [id number] from Last 3 Months or Most Recently Relevant to Health Maintenance Insurance [address] [id number] [employer] [address] [id number] AETNA CHOICE POS II Care Teams Cnc Supervisor Relationship Specialty [place] [address] [address] [facility] [place] [address] PCP - General Internal Medicine 05/28/18
--- OUTSIDE RECORDS SUMMARY | 2024-12-12 05:27 | XMS_ITS | Patient Health Record ---
Author Organization [facility] Address [address] [place] [address] Support Name Relationship Address Phone Delores Head Guarantor Unknown Allergies Allergen (clinical drug ingredient) Drug/Non Drug Allergy documented on EMR Reaction Allergy Type Onset Date Status dairy (uncoded) Unknown Allergy Acti ve Onion onion (uncoded) Unknown Allergy Acti ve red dye (uncoded) Unknown Allergy Ac tive Gluten Gluten Unknown Allergy Active Reason For Referral No Information Medications Medication SIG (Take, Route, Fr equency, Duration) Notes Start Date End Date Status Gabapentin 300 MG 1 capsule Orally two times daily for 30 days Active OLANZapine 10 MG Take 1 tablet by [facility] twice daily for 30 days Active lamoTRIgine 100 MG Take 1 tablet by harris th twice daily for 30 days Active Sertraline HCl 100 MG 2 tablets Orally O nce a day for 30 days Active LORazepam 0.5 MG TAKE 1-2 TABLETS BY MOUTH TWICE DAILY NEEDED FOR PANIC for 30 days 06/28/2023 Active Zolpidem Tartrate 5 MG TAKE 1 TABLET BY MOUTH ONCE DAILY AT BEDTIME NEEDED FOR INSOMNIA for 30 09/12/2023 Active Social History Tobacco Use: Social History Observation Description Date Details (start date - stop date) Never Smoker NA - NA Sex Assigned At : Social History Observation Description Sex Assigned At Female Dont use, Tobacco Use/Smoking Question Answer Notes Are you a nonsmoker Problems Problem Type SNOMED Code ICD Code Onset Dates Problem Status W/U Status Risk Notes Problem Generalized anxiety disorder (37036368) Generalized anxiety disorder (F41.1) Active confirmed Problem Insomnia (027024263) Insomnia (G47.00) Active confirmed Problem Bipolar disorder (69767566) Bipolar disorder (F31.9) Active confirmed Problem Obsessive compulsive disorder (870325933) Obsessive compulsive disorder (F42.9) Active confirmed Plan Of Treatment Future Test Test Name Order Date 12 Panel Urine Drug Screen 01/18/2023 Insurance Providers Payer Name Payer Address Payer Phone Subscriber Number Group Number Insured Name Patient Relationship to Insured Coverage Start Date Coverage End Date [facility] Attn Claims Department [address] [place] [id number] Delores Head Self - patient is the insured 2 [employer] Attn Claims Department [address] [place] [phone] [id number] Delores Head Self - patient is the insured 2 [employer] Attn Claims Department [address] [address] [id number] Delores Head Self - patient is the insured 2 Medical (General) History Medical History History ICD Code Patient denies seizures/head injury. Surgical History Surgery Date(Month/Year) Cholecystectomy 2004 Hospitalization History Reason Date(Month/Year) hypotension 2019
--- OUTSIDE RECORDS SUMMARY | 2024-12-12 05:27 | XMS_ITS ---
Author Organization [facility] Address [address] [place] [address] Care Team Providers Care Mixologist Name Role Phone Jonathon Reta Unavailable [phone] Allergies Allergen (clinical drug ingredient) Drug/Non Drug Allergy documented on EMR Reaction Allergy Type Onset Date Status dairy (uncoded) Unknown Allergy Acti ve Onion onion (uncoded) Unknown Allergy Acti ve red dye (uncoded) Unknown Allergy Ac tive Gluten Gluten Unknown Allergy Active Reason For Referral Reason therapy Diagnosis 1 Bipolar disorder (F3 1.9) Diagnosis 2 Obsessive compulsive disorder (F42.9) Diagnosis 3 Generalized anxiety disorder (F41.1) Referral Organization [facility] Referring Provider First Name Reta Referring Provider Last Name Jonathon Referring Provider Speciality Psychiatry Referred Provider Specialty Psychiatry [facility] Notes Jose Lipscomb 0 06/28/2023 11:17:18 AM > Was not able to get in contact with patient, will try again later., Jose Lipscomb 07/03/2023 09:49:20 AM > Was not able to get in contact with patient, will try again later., Jose Lipscomb 07/05/2023 10:56:29 AM > Spoke with patient and gave her information to get set up with therapist. Referral Priority Routine REASON FOR VISIT 2 Month Psych F/U & Med Refill Medications Medication SIG (Take, Route, Fr equency, Duration) Notes Start Date End Date Status Zolpidem Tartrate 5 MG TAKE 1 TABLET BY MOUTH ONCE DAILY AT BEDTIME NEEDED FOR INSOMNIA for 30 days 07/13/2023 Active Gabapentin 300 MG 1 capsule Orally two times daily for 30 days Active OLANZapine 10 MG Take 1 tablet by rio twice daily for 30 days Active lamoTRIgine 100 MG Take 1 tablet by rio th twice daily for 30 days Active Sertraline HCl 100 MG 2 tablets Orally O nce a day for 30 days Active LORazepam 1 MG TAKE 1 TABLET BY RIO TH TWICE DAILY NEEDED FOR PANIC for 30 days 06/27/2023 Active Social History Tobacco Use: Social History Observation Description Date Details (start date - stop date) Never Smoker NA - NA Sex Assigned At : Social History Observation Description Sex Assigned At Female Dont use, Tobacco Use/Smoking Question Answer Notes Are you a nonsmoker Vital Signs Weight 180.2 lbs 06/27/2023 Height 69.5 in 06/27/2023 BMI 26.23 kg/m2 06/27/2023 Blood pressure systolic 124 mm Hg 06/27/20 Blood pressure diastolic 80 mm Hg 023 Heart Rate 80 /min 06/27/2023 Oximetry 95 % 06/27/2023 Respiratory Rate 16 /min 06/27/2023 Encounters Encounter Location Date Provider Diagnosis [address] [place] [address] 06/27/2023 Reta Holt Nutritional counseling Z71.3 ; Bipolar disorder F31.9 ; Obsessive compulsive disorder F42.9 ; Generalized anxiety disorder F41.1 and Insomnia G47.00 Assessments Encounter Date Diagnosis (ICD Code) Assessment Notes Treatment Notes Treatment Clinical Notes Section Notes 06/27/2023 Nutritional counseling (ICD-10 - Z71.3) 06/27/2023 Bipolar disorder (ICD-10 - F31.9) Pt reports that her moods are stable at this time. Reports that she has been gaining weight; will have pt work on diet and exercise before making med change. Pt is not wanting to change Olanzapine at this time. 06/27/2023 Obsessive compulsive disorder (ICD-10 - F42.9) 06/27/2023 Generalized anxiety disorder (ICD-10 - F41.1) Pt has been out of Lorazepam for 1 month; will give quantity of #20 tabs at this time as I would like to start decreasing quatity. Pt last got #28 on 05/18/2023 06/27/2023 Insomnia (ICD-10 - G47.00) ilpmp reviewed. Pt rpeorts that she is doing well on med. Has been on this med per prior provider. 06/27/2023 Other Discussed treatment plan Discussed sleep hygiene and caffeine intake Return to clinic 4 weeks Will have MA check with [facility] on labs Encouraged counseling Discussed treatment plan; patient is agreeable and accepting of treatment plan. Patient denies further questions or concerns at this time. The Patient/Guardian asked appropriate questions, appeared to understand the answers, and decided to accept the treatment and continue being followed. Benzodiazepines are not recommended for long-term use due to potent and dangerous side effects that include increased drowsiness, memory impairment, increased irritability, mood changes, and worsening of PTSD symptoms. Benzodiazepines increase respiratory depression which can aggravate conditions such as sleep apnea and COPD leading to possible . They should also never be combined with alcohol, pain medications (especially opioids), or street drugs because this can lead to overdose and possible . The Patient/Guardian is aware of the need to contact the office or return for an earlier appointment if any problems or concerns arise. May also contact the 24-hour crisis hotline ([facility]), refer to the closest emergency room or call 911 if new symptoms arise of existing symptoms worsen; the Patient/Guardian is aware that this would apply to symptoms such as: suicidal ideation, homicidal ideation, high risk behaviors, manic symptoms, psychotic symptoms, physical symptoms, or any other symptoms that may be dangerous to self or others. Greater than 50% of time spent on coordination and counseling where psychopharmacology as well as psychotherapeutic interventions were discussed along with review of treatments in the past. Plan Of Treatment Medication Medication Name Sig Start Date Stop Date Notes Zolpidem Tartrate 5 MG TAKE 1 TABLET BY MOUTH ONCE DAILY AT BEDTIME NEEDED FOR INSOMNIA for 30 days 07/13/2023 Gabapentin 300 MG 1 capsule Orally two times daily for 30 days OLANZapine 10 MG Take 1 tablet by rio th twice daily for 30 days lamoTRIgine 100 MG Take 1 tablet by rio th twice daily for 30 days Sertraline HCl 100 MG 2 tablets Orally O nce a day for 30 days LORazepam 1 MG TAKE 1 TABLET BY RIO TH TWICE DAILY NEEDED FOR PANIC for 30 days 06/27/2023 Treatment Notes Assessment Notes Bipolar disorder Pt reports that her moods are stable at this time. Reports that she has been gaining weight; will have pt work on diet and exercise before making med change. Pt is not wanting to change Olanzapine at this time. Generalized anxiety disorder Pt has been out of Lorazepam for 1 month; will give quantity of #20 tabs at this time as I would like to start decreasing quatity. Pt last got #28 on 05/18/2023 Insomnia ilpmp reviewed. Pt r peorts that she is doing well on med. Has been on this med per prior provider. Other Discussed treatment plan Discussed sleep hygiene and caffeine intake Return to clinic 4 weeks Will have MA check with [facility] on labs Encouraged counseling Discussed treatment plan; patient is agreeable and accepting of treatment plan. Patient denies further questions or concerns at this time. The Patient/Guardian asked appropriate questions, appeared to understand the answers, and decided to accept the treatment and continue being followed. Benzodiazepines are not recommended for long-term use due to potent and dangerous side effects that include increased drowsiness, memory impairment, increased irritability, mood changes, and worsening of PTSD symptoms. Benzodiazepines increase respiratory depression which can aggravate conditions such as sleep apnea and COPD leading to possible . They should also never be combined with alcohol, pain medications (especially opioids), or street drugs because this can lead to overdose and possible . The Patient/Guardian is aware of the need to contact the office or return for an earlier appointment if any problems or concerns arise. May also contact the 24-hour crisis hotline ([facility]), refer to the closest emergency room or call 911 if new symptoms arise of existing symptoms worsen; the Patient/Guardian is aware that this would apply to symptoms such as: suicidal ideation, homicidal ideation, high risk behaviors, manic symptoms, psychotic symptoms, physical symptoms, or any other symptoms that may be dangerous to self or others. Greater than 50% of time spent on coordination and counseling where psychopharmacology as well as psychotherapeutic interventions were discussed along with review of treatments in the past. Referrals Referral Date Details 06/27/2023 06/27/2023, therapy Next Appt Details Follow Up: 2 Months, Reason: Psychiatric Follow Up - Medication Check,Psychiatric medication refill Progress Notes * Michael HEADB: [birth year] (37 yo F)Acc No.[id number]:06/27/2023 Patient: Delores Harris Provider: ANDREI MAX DOB:1985 A ge:37 Y S ex:Female Date:06/27/2023 Address:[address] [facility] [facility] [id number] Check In:08:26 AM HR INTERN Subjective: * Chief Complaints: * 2 Month Psych F/U & Med Refill * HPI: I nterim History: Emergency room visit N o. W as hospitalized N o.? D epression Screening: PHQ-9 L ittle interest or pleasure in doing things S everal days, F eeling down, depressed, or hopeless S everal days, T rouble falling or staying asleep, or sleeping too much S everal days, F eeling tired or having little energy M ore than half the days, P oor appetite or overeating S everal days, F eeling bad about yourself or that you are a failure, or have let yourself or your family down N ot at all, T rouble concentrating on things, such as reading the newspaper or watching television N ot at all, M oving or speaking so slowly that other people could have noticed; or the opposite, being so fidgety or restless that you have been moving around a lot more than usual N ot at all, T houghts that you would be better off or of hurting yourself in some way N ot at all, T otal Score 6 , I nterpretation M ild Depression. I ntervention D epression Screening Findings P ositive, F ollow-Up for Depression N o Referral necessary, patient involved in behavioral health treatment .. S creening: Boyden Suicide Severity Rating Scale (LF) D o you want to initiate with S creener form, 1 . Wish to be : Have you wished you were or wished you could go to sleep and not wake up? N o, 2 . Suicidal Thoughts: Have you actually had any thoughts of killing yourself? N o, 6 . Suicide Behaviour: Have you ever done anything,started to do anything, or prepared to end your life? N o. C SSRS Interpretation and Follow Up Plan: CSSRS Interpretation and Follow Up Plan CSSRS Interpretation and Follow Up Plan. CSSRS Interpretation and Follow Up Plan C SSRS Screen documented using SF Y es, M oderate or High risk requires selection of a follow up plan C SSRS No/Low: intervention not needed at this time. C onstitutional: HPI: 37-year-old female presents to clinic via in-person to follow-up on medications. Patient was last seen on 01/18/2023 at which time Gabapentin, Zyprexa, Lamotrigine, Sertraline, Ambien and Lorazepam were refilled. PHQ-9 score was 6 at that time. Labs were ordered at that time but not obtained. P atient reports I think I got the labs done in december; I think I went to [facility]. I am getting fat and I hate it. I have been dieting but I have bot been exercising. I have anxiety a lot. 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 I think I took 2 Lorazepam tablets I the past 2 weeks. Even when I was getting more, I wasn't taking it that often. P t reports that she is having issues with weight gain; reports gaining 80lbs over the past 2 years but reports that she was severely underweight at that time. Pt reports that she really likes the Olanzapine and does not want to change meds at this time P HQ-9 score is 6 today P er ilpmp, Ambien 5mg #30 was last refilled on 06/17/2023, Lorazepam #28 was last refilled on 05/18/2023/ P revious Diagnosis: Bipolar Disorder, OCD, ALYSSA, Insomnia G oals: Keeping my job C oping strategies: I take my Lorazepam and I feel better; I also listen to music and deep breathe S ocial Activities/Hobbies: I have a group that I spend time with; I collect dolls D rugs/ETOH/nicotine: Denies T herapy: Denies but reports that she is interested. M edications effective: Yes M edication Adherence: Taking as prescribed S nikolai effects: Denies P ast medications: Effexor, Seroquel S leep: I am sleeping ok but am tired in the morning because I am now having to get up early for a new job A ppetite: I eat a lot C affeine intake: I drink tea D epression: 2 out of 10 A nxiety/Panic attacks: 7-8 out of 10 A nger/Irritability: Denies H allucinations/Paranoia: Denies C urrent Suicidal ideation: Denies H omicidal ideation: Denies M edical concerns: Denies H ospitalizations/medication changes by other providers: Denies. * ROS: P sychiatric: anger D enies. m ood swings Denies. T houghts of self harm D enies. D enies H omicidal thoughts. H yperactivity Denies.?Inattention Denies. B ehavior concerns D enies. D isruptive behavior Denies. O bsessive behavior D enies. C ompulsive behavior Denies. P aranoia D enies. A dmits A nxiety. D enies A uditory/visual hallucinations. D enies D elusions. A dmits D epressed mood. D enies D ifficulty sleeping. D enies E ating disorder. D enies L oss of appetite. D enies S ubstance abuse. D enies S uicidal thoughts. * Medical History: * Surgical History: C holecystectomy 2004 * Hospitalization/Major Diagno stic Procedure: h ypotension 2019 * Family History: F ather: alive. M other: alive. 2 sister(s) . . Mother-Parkinson's disease Father-Heart disease Sister-Raynaud's Syndrome Sister-Narcolepsy Maternal Uncles X 3 -- suicide. * Social History: P rimary Social History: L iving Arrangement L iving Arrangement: I ndependent Living, I s this a supportive environment? Y es. A lcohol Use A lcohol Use Frequency: M onthly or less socially. Illicit Substance Usage I llicit Substance Usage: N o. 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 T obacco Use T obacco Use: Luanne fabian Reviewed with Patient, T obacco Use Status Reviewed on: 0 07/20/2022. T obacco Use: T obacco Use/Smoking A re you a n onsmoker. M iscellaneous: M ethod of learning P referred method of learning: R eading,Discussion,Demonstration,Hearing. * Medications: T akingSertraline HCl 100 MG Tablet 2 tablets Orally Once a dayGabapentin 300 MG Capsule 1 capsule Orally two times dailyOLANZapine 10 MG Tablet Take 1 tablet by mouth twice daily lamoTRIgine 100 MG Tablet Take 1 tablet by mouth twice daily Zolpidem Tartrate 5 MG Tablet TAKE 1 TABLET BY MOUTH ONCE DAILY AT BEDTIME NEEDED FOR INSOMNIA LORazepam 1 MG Tablet TAKE 1 TABLET BY MOUTH TWICE DAILY NEEDED FOR PANIC Taking Sertraline HCl 100 MG Tablet 2 tablets Orally Once a dayTaking Gabapentin 300 MG Capsule 1 capsule Orally two times dailyTaking OLANZapine 10 MG Tablet Take 1 tablet by mouth twice daily Taking lamoTRIgine 100 MG Tablet Take 1 tablet by mouth twice daily Taking Zolpidem Tartrate 5 MG Tablet TAKE 1 TABLET BY MOUTH ONCE DAILY AT BEDTIME NEEDED FOR INSOMNIA Taking LORazepam 1 MG Tablet TAKE 1 TABLET BY MOUTH TWICE DAILY NEEDED FOR PANIC * Allergies: r ed Genaro[Allergies Verified] Objective: * Vitals: I nitials: sw, Wt:180.2, Ht: 69.5, BMI:26.23, BP:124/80, HR:80, Oxygen sat %:95, RR:16, LMP: unsure, Pain scale:0, Ht-cm: 176.53, Wt-k.74. * Examination: G eneral Examination: GENERAL APPEARANCE: pleasant, well nourished, well developed, in no acute distress, in no acute distress, well nourished, well hydrated, calm and relaxed, cooperative. PSYCH: full range of affect/positive mood, good eye contact, speech clear, no auditory or visual hallucinations, thought content without suicidal ideation or delusions, alert, oriented x4, cognitive function intact, cooperative with exam, judgement and insight good, normal, thought process logical, goal directed, No evidence of EPS or tardive dyskinesia, denies any current thoughts/plans of suidicial/homicidal ideation, thought content without delusions. Assessment: * Assessment: 1. N utritional counseling - Z71.3 (Primary) 2 . B ipolar disorder - F31.9 3 . O bsessive compulsive disorder - F42.9 4 . G eneralized anxiety disorder - F41.1 5 .?Insomnia - G47.00 Plan: * Treatment: 2. O bsessive compulsive disorder Referral To:Psychiatry service Reason:therapy 3. G eneralized anxiety disorder Refill Sertraline HCl Tablet, 100 MG, 2 tablets, Orally, Once a day, 30 days, 60 Tablet, Refills 1;?Refill LORazepam Tablet, 1 MG, TAKE 1 TABLET BY MOUTH TWICE DAILY NEEDED FOR PANIC, 30 days, 20 Tablet, Refills 0. Notes: Pt has been out of Lorazepam for 1 month; will give quantity of #20 tabs at this time as I would like to start decreasing quatity. Pt last got #28 on 05/18/2023. ? Referral To:Psychiatry service Reason:therapy 4. I nsomnia Refill Zolpidem Tartrate Tablet, 5 MG, TAKE 1 TABLET BY MOUTH ONCE DAILY AT BEDTIME NEEDED FOR INSOMNIA, 30 days, 30 Tablet, Refills 0. Notes: ilpmp reviewed. Pt rpeorts that she is doing well on med. Has been on this med per prior provider. 5. O thers Notes:Discussedtreatment planDiscussedsleep hygiene and caffeine intakeReturn toclinic 4 weeksEmre Henry with [facility] labsEncouragedcounselingDiscussedtreatment plan; patient is agreeable and accepting of treatment plan. Patientdenies further questions or concerns at this time.The Patient/Guardian askedappropriate questions, appeared to understand the answers, and decided toaccept the treatment and continue being followed.Benzodiazepines are not recommended for long-term use due topotent and dangerous side effects that include increased drowsiness, memoryimpairment, increased irritability, mood changes, and worsening of PTSDsymptoms. Benzodiazepines increase respiratory depression which can aggravateconditions such as sleep apnea and COPD leading to possible . They shouldalso never be combined with alcohol, pain medications (especially opioids), orstreet drugs because this can lead to overdose and possible .The Patient/Guardian is aware of theneed to contact the office or return for an earlier appointment if any problemsor concerns arise. May also contact the 24-hour crisis hotline ([facility]), refer tothe closest emergency room or call 911 if new symptoms arise of existingsymptoms worsen; the Patient/Guardian is aware that this would apply tosymptoms such as: suicidal ideation, homicidal ideation, high risk behaviors,manic symptoms, psychotic symptoms, physical symptoms, or any other symptomsthat may be dangerous to self or others.Greater than 50% of time spent oncoordination and counseling where psychopharmacology as well aspsychotherapeutic interventions were discussed along with review of treatmentsin the past.. * Procedure Codes: 3 008F BODY MASS INDEX [id number] MEDICAL NUTRITION, INDIV, [id number] TOBACCO NON-USER * Preventive Medicine: Counseling: C are goal follow-up plan: B NH management provided Y es, Cecile mendoza Normal BMI Follow-up L ifgetyle education regarding diet. * Follow Up: 2 Months (Reason: Psychiatric Follow Up - Medication Check,Psychiatric medication refill) * * Sign off status: Completed true * Provider: ANDREI MAX Date: 0 06/27/2023 Generated for Lory bedolla/Danae/Avelina on: 0 12/12/2024 05:26 AM HR INTERN History and Physical Notes * HPI (History of Present Illness) Category Sub-Category Detail Notes Category Not es Interim History Was hospitalized No Emergency room visit No Depression Screening PHQ-9 Little inte rest or pleasure in doing things: Several days Feeling down, depressed, or hopeless: Se veral days Trouble falling or staying asleep, or sl eeping too much: Several days Feeling tired or having little energy: M ore than half the days Poor appetite or overeating: Several day s Feeling bad about yourself o r that you are a failure, or have let yourself or your family down: Not at all Trouble concentrating on thi ngs, such as reading the newspaper or watching television: Not at all Moving or speaking so slowly that other people could have noticed; or the opposite, being so fidgety or restless that you have been moving around a lot more than usual: Not at all Thoughts that you would be b scooter off or of hurting yourself in some way: Not at all Total Score: 6 Interpretation: Mild Depression Intervention Depression Screening Findings: P ositive Follow-Up for Depression: No Referral necessary, patient involved in behavioral health treatment . Constitutional HPI: 37-year-old female presents to clinic via in-person to follow-up on medications. Patient was last seen on 01/18/2023 at which time Gabapentin, Zyprexa, Lamotrigine, Sertraline, Ambien and Lorazepam were refilled. PHQ-9 score was 6 at that time. Labs were ordered at that time but not obtained. Patient reports I think I got the labs done in december; I think I went to [facility]. I am getting fat and I hate it. I have been dieting but I have bot been exercising. I have anxiety a lot. 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 I think I took 2 Lorazepam tablets I the past 2 weeks. Even when I was getting more, I wasn't taking it that often. Pt reports that she is having issues with weight gain; reports gaining 80lbs over the past 2 years but reports that she was severely underweight at that time. Pt reports that she really likes the Olanzapine and does not want to change meds at this time PHQ-9 score is 6 today Per ilpmp, Ambien 5mg #30 was last refilled on 06/17/2023, Lorazepam #28 was last refilled on 05/18/2023/ Previous Diagnosis: Bipolar Disorder, OCD, ALYSSA, Insomnia Goals: Keeping my job Coping strategies: I take my Lorazepam and I feel better; I also listen to music and deep breathe Social Activities/Hobbies: I have a group that I spend time with; I collect dolls Drugs/ETOH/nicotine: Denies Therapy: Denies but reports that she is interested. Medications effective: Yes Medication Adherence: Taking as prescribed Side effects: Denies Past medications: Effexor, Seroquel Sleep: I am sleeping ok but am tired in the morning because I am now having to get up early for a new job Appetite: I eat a lot Caffeine intake: I drink tea Depression: 2 out of 10 Anxiety/Panic attacks: 7-8 out of 10 Anger/Irritability: Denies Hallucinations/Paranoia: Denies Current Suicidal ideation: Denies Homicidal ideation: Denies Medical concerns: Denies Hospitalizations/medication changes by other providers: Denies Screening Boyden Suicide Severity Rating Scale (LF) Do you want to initiate with: Screener form 1. Wish to be : Have you wished you were or wished you could go to sleep and not wake up?: No 2. Suicidal Thoughts: Have you actually had any thoughts of killing yourself?: No 6. Suicide Behavior Question: Have you ever done anything,started to do anything, or prepared to end your life?: No Do Not Use CSSRS Interpretation and Follow Up Plan CSSRS Interpretation and Follow Up Plan CSSRS Screen documented using SF: Yes Moderate or High risk requir es selection of a follow up plan: CSSRS No/Low: intervention not needed at this time Examination Category Sub-Category Detail Notes Category Not es General Examination GENERAL APPEARANCE: pleasant , well nourished, well developed, in no acute distress, in no acute distress, well nourished, well hydrated, calm and relaxed, cooperative PSYCH: full range of affect /positive mood, good eye contact, speech clear, no auditory or visual hallucinations, thought content without suicidal ideation or delusions, alert, oriented x4, cognitive function intact, cooperative with exam, judgement and insight good, normal, thought process logical, goal directed, No evidence of EPS or tardive dyskinesia, denies any current thoughts/plans of suidicial/homicidal ideation, thought content without delusions Consultation Request Notes Referral Date Referring Provider Referred Provider Not es 06/27/2023 Reta Holt , therapy
--- OUTSIDE RECORDS SUMMARY | 2024-12-12 05:27 | XMS_ITS | Clinical Summary ---
Author Organization [facility] Building B Address [address] [place] [address] Care Team Providers Care Quiller Tender Name Role Phone Philipp Burger DO Primary Care Provider +1- [phone] Allergies Active Allergy Reactions Criticality Noted Date Comments Hydrocodone Anxiety Low 12/31/2017 Jjssuvznif-Bfz-Bhnn-Vits E,A,D Unknown 12/31 Medications LORazepam (ATIVAN) 1 [...] on file Legal Sex Female 9:13 PM FRAMING [employer] HANG[employer] Gender Identity Not on file Sexual Orientation [...] patient's age to complete this topic Insurance FIGS PPO [facility] Care Teams Quiller Tender Relationship Specialty Start Date End Date Philipp Burger DO PCP - General Internal Medicine 07/27/22
--- OUTSIDE RECORDS SUMMARY | 2024-12-12 05:27 | XMS_ITS | Referral Summary ---
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
--- OUTSIDE RECORDS SUMMARY | 2024-12-12 05:27 | XMS_ITS ---
Author Organization [facility] [employer] [facility] Address [facility] [facility] [address] [facility] [address] [place] [address] Care Team Providers Care Community Sports Coordinator Name Role Phone Philipp Burger DO Primary Care Provider Donnie Lucas Unavailable [phone] REASON FOR VISIT Refills Social History Sex Assigned At : Social History Observation Description Sex Assigned At Female Encounters Encounter Location Date Provider Diagnosis [facility] [employer] [facility] [address] [facility] [address] [place] [address] 09/15/2024 Donnie Du Plan Of Treatment Next Appt Details Provider Name:Donnie de leon, 01/01/2025 04:30:00 PM, [address], [facility] [address], [place], [address], Progress Notes * DAMIAN TAPIA NDOB:[birth year] (38 yo F)Acc No.[id number]:09/15/2024 Patient: Alfonso DAMIAN CABALLERO :1985 A ge:38 Y S ex:Female Address:[address] [place] [address], [address] * true * Date: Generated for Lory bedolla/Meleg/eTransmitting on: 0 12/12/2024 05:26 AM HANDLING TECH
--- OUTSIDE RECORDS SUMMARY | 2024-12-12 05:27 | XMS_ITS ---
Author Organization [facility] [employer] Address [address] [facility] [address] [place] [address] Care Team Providers Care Diet Aid Name Role Phone Philipp Burger DO Primary Care Provider Donnie Lucas Unavailable [phone] Allergies No Known Allergies REASON FOR VISIT follow up visit, medication evaluation Medications Medication SIG (Take, Route, Frequency, Duration) [...] for 30 days As needed 10/23/2024 Active Zolpidem Tartrate 10 MG 1 tablet at bedt adolfo Oral once a day for 30 days 09/11/2024 Active Divalproex Sodium ER 250 MG Take 1 table t by mouth once daily Oral Once a day for 90 days Active Triamcinolone Acetonide 0.1% External 02/21/2024 Active OLANZapine 5 MG 1 tablet Orally Once a day for 30 days Active Social History Tobacco Use: Social History Observation Description Date Details (start date - stop date) Never Smoker NA - NA Sex Assigned At : Social History Observation Description Sex Assigned At Female Tobacco Control (Standard) Question Answer Notes Tobacco use: Nonsmoker Vital Signs Blood pressure systolic 112 mm Hg 10/23/19 25 Blood pressure diastolic 79 mm Hg 025 Heart Rate 64 /min 10/23/2024 Height 69.00 in 10/23/2024 Weight 173.8 lbs 10/23/2024 BMI 25.66 kg/m2 10/23/2024 Height-cm 175.26 cm 10/23/2024 Weight-kg 78.83 kg 10/23/2024 Encounters Encounter Location Date Provider Diagnosis [facility] [address] [place] [address] 10/23/2024 Donnie Du Generalized anxiety disorder F41.1 ; Other insomnia G47.09 and Bipolar disorder, current episode mixed, unspecified F31.60 Assessments Encounter Date Diagnosis (ICD Code) Assessment Notes Treatment Notes Treatment Clinical Notes Section Notes 10/23/2024 Generalized anxiety disorder (ICD-10 - F41.1) cont lorazepam 1mg prn, sertraline 100mg daily 10/23/2024 Other insomnia (ICD-10 - G47.09) zolpidem 10mg hs 10/23/2024 Bipolar disorder, current episode mixed, unspecified (ICD-10 - F31.60) olanzapine hs, divalproex er 250mg hs Plan Of Treatment Medication Medication Name Sig Start Date Stop Date Notes Zolpidem Tartrate 10 MG 1 tablet at bedt adolfo Oral once a day for 30 days 10/23/2024 ARIPiprazole 5 MG 1 tablet Orally Once a day for 30 days 10/23/2024 Sertraline HCl 100 MG 1 tablet Orally On ce a day for 90 days LORazepam 1 MG 1 tablet Oral twice daily for 30 days 10/23/2024 Divalproex Sodium ER 250 MG Take 1 table t by mouth once daily Oral Once a day for 90 days OLANZapine 5 MG 1 tablet Orally Once a day for 30 days Treatment Notes Assessment Notes Generalized anxiety disorder cont loraze danae 1mg prn, sertraline 100mg daily Other insomnia zolpidem 10mg hs Bipolar disorder, current ep isode mixed, unspecified olanzapine hs, divalproex er 250mg hs Next Appt Details Follow Up: 4 Weeks, Reason: f/u bipolar d/o Provider Name:Donnie de leon, 01/01/2025 04:30:00 PM, [address], [address], [place], [address], Progress Notes * DAMIAN TAPIA NDOB:[birth year] (39 yo F)Acc No.[id number]:10/23/2024 Patient: DAMIAN ZAMUDIO Provider: HEDY RODRIGUEZ :1985 A ge:39 Y S ex:Female Date:10/23/2024 Address:[address] [place] [address] [place] [address] Pcp:Philipp Burger DO Subjective: * Chief Complaints: * F ollow up visit, medication evaluation * HPI: C olumbia-Suicide Severity Rating Scale: the note is transcribed using speech recognition software. It is a reflection of a visit with the patient. It might have some inaccuracy, including medication names and transcribing errors, though efforts have been made to correct them. Chief complaint - Eye problem, potential medication side effect. The patient recently returned from visiting her parents in [place], where she observed her mother's Lewy body dementia. She presents with concerns about an eye problem, which she suspects may be a side effect of her current lens. The patient experiences oculogyric movements approximately three times a week and has researched that these could be caused by her current medication, olanzapine. An MRI appointment is scheduled for October to further investigate this issue. The patient has consulted an eye doctor, who found no issues and referred her to her PCP, who recommended the MRI. She strongly prefers to continue olanzapine due to its effectiveness and her reluctance to try other medications. Previously, she tried Seroquel for 6 years at 25 milligrams, which caused weight loss and anxiety. The patient is open to trying benztropine, an anticholinergic medication, to address the oculogyric movements. During her visit to her parents' house, the patient experienced the eye issue only once while watching Maura movies with her mother. Her current medication regimen includes Sertraline 100 mg daily, lorazepam 1 mg twice a day as needed, zolpidem at bedtime for sleep, and Depakote 250 mg for bipolar disorder. Suicide Risk (CSRS-screener) i n the past one month Have you wished you were or wished you could go to sleep and not wake up? N o, i n the past one month Have you actually had any thoughts of killing yourself? N o. D epression screening: PHQ-9 L ittle interest or pleasure in doing things S everal days, F eeling down, depressed, or hopeless S everal days, T rouble falling or staying asleep, or sleeping too much S everal days, F eeling tired or having little energy S everal days, P oor appetite or overeating M ore than half the days, F eeling bad about yourself or that you are a failure, or have let yourself or your family down S everal days, T rouble concentrating on things, such as [...] N ot at all, T otal Score 7 , I nterpretation M ild Depression. I ntervention D epression Screening Findings P ositve, F ollow-Up for Depression M entnj health treatment assessment, Patient follow-up to return when and if necessary, S uicide Risk Assessment Performed 0 10/23/2024 , A dditional Evaluation for Depression P sychiatric interview and evaluation, N karolina of the standardized tool used for adult depression screening: P atient Health Questionnaire (PHQ-9). D epression Screening: ALYSSA-7 (2018 Edition) F eeling nervous, anxious, or on edge?Several days, N ot being able to stop or control worrying S everal days, W orrying too much about different things S everal days, T rouble relaxing S everal days, B eing so restless that it is hard to sit still N ot at all, B ecoming easily annoyed or irritable S everal days, F eeling afraid as if something awful might happen S everal days, I f you checked any problems, how difficult have they made it for you to do your work, take care of things at home, or get along with other people? S omewhat difficult, I nterpretation of Total ( 10 to 14) Moderate. H istory of Presenting Problem: Depression s tates not depressed, a little apathetic. P sychosis h x hallucinations. S leep disturbance h ad sleep study, mild sleep apnea, uses cpap. States she is tired in the morning until afternoon, difficult to fall asleep at night. . * Medical History: * Surgical History: * Hospitalization/Major Diagno stic Procedure: * Family History: F ather: Diabetes mellitus . U nspecified Relation: History of attempted suicide . M other: Anxiety disorder , Hypothyroidism . * Social History: T obacco Use: T obacco Control (Standard) T obacco use: N onsmoker. M igrated Social History: M igrated Social History: Alcohol Intake: None 02/03/2022,Tobacco Years: Never smoker 01/07/2021. M iscellaneous: A dvance Care Planning A re you your own decision-maker Y es, D o you have Power of Sonar Watchstander for Health or Medical? N o. * Medications: T akingTriamcinolone Acetonide 0.1% Cream External Divalproex Sodium ER 250 MG Tablet Extended Release 24 Hour Take 1 tablet by mouth once daily Oral Once a day OLANZapine 10 MG Tablet 1 tablet Orally Once a day Sertraline HCl 100 MG Tablet 1 tablet Orally Once a day LORazepam 1 MG Tablet 1 tablet Oral twice daily As neededZolpidem Tartrate 10 MG Tablet 1 tablet at bedtime Oral once a day Medication List reviewed and reconciled with the patientTaking Triamcinolone Acetonide 0.1% Cream External Taking Divalproex Sodium ER 250 MG Tablet Extended Release 24 Hour Take 1 tablet by mouth once daily Oral Once a day Taking OLANZapine 10 MG Tablet 1 tablet Orally Once a day Taking Sertraline HCl 100 MG Tablet 1 tablet Orally Once a day Taking LORazepam 1 MG Tablet 1 tablet Oral twice daily As neededTaking Zolpidem Tartrate 10 MG Tablet 1 tablet at bedtime Oral once a day Medication List reviewed and reconciled with the patient * Allergies: N .K.D.A.no[Allergies Verified] Objective: * Vitals: B P:112/79mm Hg, HR:64/min, Wt:173.8lbs, Wt-k.83 kg, Ht: 69.00 in, Ht-cm: 175.26 cm, BMI:25.66Index, Body Surface Area: 1.96. * Examination: P sychiatry: Appearance: w ell-groomed, well-nourished, .... Abnormal body movements: a bnormal eye movements, oculogyric. Affect / mood: a ppropriate, full range. Attention: g ood. Attitude: c ooperative. Suicidal ideation: n one. Memory status: n o impairment noted. Degree of awareness of surroundings: w ithin normal limits.? Delusions: n o. Hallucinations: n o. Insight: g ood. Intellectual functioning: n o impairment noted. Judgement: g ood. Orientation: a wake, alert and oriented x 3. Perceptual disorders: n o perceptual disorder noted. Psychomotor activity: w ithin normal range. Speech / language: a ppropriate pitch/modulation, clear and coherent, normal rate, volume, and articulation (RVR), proper grammar used. Thought content: a ppropriate. Thought process: i ntact. Assessment: * Assessment: 1. G eneralized anxiety disorder - F41.1 (Primary) 2 . O ther insomnia - G47.09 3 . B ipolar disorder, current episode mixed, unspecified - F31.60 ? Plan: * Treatment: 2. O ther insomnia Refill Zolpidem Tartrate Tablet, 10 MG, 1 tablet at bedtime, Oral, once a day As needed, 30 days, 30 Tablet, Refills 2. Notes: zolpidem 10mg hs 3. B ipolar disorder, current episode mixed, unspecified Refill Divalproex Sodium ER Tablet Extended Release 24 Hour, 250 MG, Take 1 tablet by mouth once daily, Oral, Once a day, 90 days, 90, Refills 1; R efill OLANZapine Tablet, 5 MG, 1 tablet, Orally, Once a day, 30 days, 30 Tablet, Refills 1; S tart ARIPiprazole Tablet, 5 MG, 1 tablet, Orally, Once a day, 30 days, 30, Refills 1. Notes: olanzapine hs, divalproex er 250mg hs * Procedure Codes: 9 6127 BEHAV ASSMT W/SCORE & DOCD/STAND INSTRUMENT * Follow Up: 4 Weeks (Reason: f/u bipolar d/o) * Billing Information: * Visit Code: 14120 OFFICE OUTPATIENT VISIT 25 MINUTES DETAILED HISTORY AND EXAM/MODERATE MEDICAL DECISION MAKING. * Procedure Codes: 61016 BEHAV ASSMT W/SCORE & DOCD/STAND INSTRUMENT. * NTIFIC SPECIALIST Sign off status: Completed true * Provider: HEDY RODRIGUEZ Date: 0 10/23/2024 Generated for Lory bedolla/Danae/eTransmitting on: 0 12/12/2024 05:26 AM SCIENTIFIC SPECIALIST History and Physical Notes * HPI (History of Present Illness) Category Sub-Category Detail Notes Category Not es History of Presenting Problem Depression states not depressed, a vamsi le apathetic Sleep disturbance had sleep study, mil d sleep apnea, uses cpap. States she is tired in the morning until afternoon, difficult to fall asleep at night. Psychosis hx hallucinations Depression screening PHQ-9 Little inte rest or pleasure in doing things: Several days Feeling down, depressed, or hopeless: Se veral days Trouble falling or staying asleep, or sl eeping too much: Several days Feeling tired or having little energy: S everal days Poor appetite or overeating: More than h senior living the days Feeling bad about yourself o r that you are a failure, or have let yourself or your family down: Several days Trouble concentrating on thi ngs, such as [...] some way: Not at all Total Score: 7 Interpretation: Mild Depression Intervention Depression Screening Findings: P ositve Follow-Up for Depression: [facility] treatment assessment, Patient follow-up to return when and if necessary Suicide Risk Assessment Performed: 10/23 Additional Evaluation for De pression: Psychiatric interview and evaluation Name of the standardized too l used for adult depression screening:: Patient Health Questionnaire (PHQ-9) Depression Screening ALYSSA-7 (2018 Edition) Feelin g nervous, anxious, or on edge: Several days Not being able to stop or control worryi ng: Several days Worrying too much about different things : Several days Trouble relaxing: Several days Being so restless that it is hard to sit still: Not at all Becoming easily annoyed or irritable: Se veral days Feeling afraid as if something awful ethan ht happen: Several days If you checked any problems, how difficult have they made it for you to do your work, take care of things at home, or get along with other people?: Somewhat difficult Interpretation of Total: (10 to 14) Mode rate Jones-Suicide Severity Rating Scale Suicide Risk (CSRS-screener) in the past one month Have you wished you were or wished you could go to sleep and not wake up?: No in the past one month Have y ou actually had any thoughts of killing yourself?: No Examination Category Sub-Category Detail Notes Category Not es Psychiatry Appearance: well-groomed, well-nourished , ... Attitude: cooperative Psychomotor activity: within normal rang e Abnormal body movements: abnormal eye mo vements, oculogyric Attention: good Degree of awareness of surroundings: wit hin normal limits Orientation: awake, alert and emir ented x 3 Affect / mood: appropriate, full ra nge Speech / language: appropriate pitch/mo dulation, clear and coherent, normal rate, volume, and articulation (RVR), proper grammar used Insight: good Judgement: good Thought process: intact Thought content: appropriate Perceptual disorders: no perceptual diso rder noted Suicidal ideation: none Intellectual functioning: no impairment noted Memory status: no impairment noted Delusions: no Hallucinations: no
--- NOTE | 2024-12-12 11:54 | P.PNAN_ITS ---
Anes - Initial Pre Proc Eval Procedure: Operation Date: 12/12/24 13:30 Proposed Procedures p Esophagogastroduodenoscopy - Froilan Contreras MD Date/Time: 12/12/24 11:54 Surgeon: Froilan Contreras MD Pre Op Diagnosis: GERD Patient Data Age: 39 Gender: F Height: 1.75 m Weight: 79.4 kg Allergies Allergy/AdvReac Type Severity Reaction Status Date / Time garlic AdvReac Other Verified 12/12/24 12:40 gluten AdvReac Other Verified 12/12/24 12:40 onion AdvReac Other Verified 12/12/24 12:40 Contrast Media Allergy Intermediate HIVES Uncoded 11/26/24 14:44 Home Medications ?Medication ?Instructions ?Recorded ?Confirmed ?Type lorazepam 2 mg tablet 2 mg PO DAILY 03/24/20 12/12/24 History sertraline 100 mg tablet 200 mg PO DAILY 08/16/22 12/12/24 History olanzapine 20 mg tablet 15 mg PO DAILY 11/15/23 12/12/24 History zolpidem 5 mg tablet (Ambien) 5 mg PO QHS 11/15/23 12/12/24 History triamcinolone acetonide 0.1 % 1 applic topical TID #30 grams 11/16/23 11/26/24 Rx topical cream cholecalciferol (vitamin D3) 1,250 1,250 mcg PO WEEKLY #8 tabs 12/19/23 11/26/24 Rx mcg (50,000 unit) tablet divalproex 250 mg tablet,delayed 250 mg PO ONCE 04/10/24 12/12/24 History release (Depakote) CPAP #1 ea 06/03/24 11/26/24 Rx phentermine 37.5 mg tablet 37.5 mg PO DAILY #30 tabs 09/17/24 11/26/24 Rx aripiprazole 5 mg tablet (Abilify) 5 mg PO DAILY 11/26/24 12/12/24 History drospirenone 3 mg-ethinyl 1 tablet PO DAILY 11/26/24 12/12/24 History estradiol 0.02 mg tablet (DEON (28)) lorazepam 1 mg tablet 1 mg PO BID PRN anxiety 11/26/24 12/12/24 History Patient hx anesthesia problems: none Family hx anesthesia problems: none Results Review: All pre-operative results and documents have been reviewed as part of the pre-operative evaluation. [facility] Past Medical History Medical History (Updated 12/12/24 @ 13:03 by Alfred Stock DO) Chronic GERD COURTNEY (obstructive sleep apnea) Cystitis, interstitial Depression Asperger syndrome Anxiety Surgical History Surgical History S/P cholecystectomy Family History Family History Father Diabetes mellitus Hypertension Myocardial infarction Mother Parkinson disease Heart disease Mother No problems noted. 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 Caffeine-tea Smoking status: Never smoker Alcohol intake: never Substance use: current Gender identity (if verbalized by the patient): Female Spiritual care concerns: No Anes - Eval Final PreProcedure Day of Procedure 12/12/24 11:54 Patient weight: overweight Heart: regular rate and rhythm Lungs: clear to auscultation Airway: Mallampati scale class II Neurological: alert and oriented Last oral intake: >/= 8 hours ASA classification: III Emergent: no Anesthetic plan: proceed Anesthesia type and monitoring: general GIVS and standard monitoring Results Review: All pre-operative results and documents have been reviewed as part of the pre- operative evaluation. Informed Consent: The patient's anesthetic plan and its attendant risks and benefits were discussed with the patient/family/POA. Questions were solicited and answers provided to the satisfaction of the patient/family/POA.
[2024-12-12 12:46] VITALS: BP 111/73; PULSE 69; RESP 18; TEMP 36.1; O2SAT 100; BMI 25.1
[2024-12-12 12:49] LABS: BEDSIDEPREGUCG Negative (Negative)
[2024-12-12] MEDS: LACTATED RINGERS 1,000 ML 150 ML IV CONT (12:56)
--- NOTE | 2024-12-12 13:07 | PM.HPGS ---
History of Present Illness History of Present Illness Consent: Risks, benefits, and alternatives have been discussed and questions answered. Patient agrees to proceed with procedure. Chief complaint: GERD Narrative: Delores Head is a 39 year old female with gerd and discomfort after eating using peptobismol, she is not taking ppi. Had EGD about 2 years ago. she had cholecystectomy Review of Systems Review of Systems: All systems reviewed & are unremarkable except as noted in HPI and below PMFSH Past Medical History Medical History (Updated 12/12/24 @ 13:03 by Alfred Stock, ) Chronic GERD COURTNEY (obstructive sleep apnea) Cystitis, interstitial Depression Asperger syndrome Anxiety Surgical History Surgical History S/P cholecystectomy Family History Family History Father Diabetes mellitus Hypertension Myocardial infarction Mother Parkinson disease Heart disease Mother No problems noted. 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 Caffeine-tea Smoking status: Never smoker Alcohol intake: never Substance use: current Gender identity (if verbalized by the patient): Female Spiritual care concerns: No Meds Home Medications and Allergies Home Medications ?Medication ?Instructions ?Recorded ?Confirmed ?Type lorazepam 2 mg tablet 2 mg PO DAILY 03/24/20 12/12/24 History sertraline 100 mg tablet 200 mg PO DAILY 08/16/22 12/12/24 History olanzapine 20 mg tablet 15 mg PO DAILY 11/15/23 12/12/24 History zolpidem 5 mg tablet (Ambien) 5 mg PO QHS 11/15/23 12/12/24 History triamcinolone acetonide 0.1 % 1 applic topical TID #30 grams 11/16/23 11/26/24 Rx topical cream cholecalciferol (vitamin D3) 1,250 1,250 mcg PO WEEKLY #8 tabs 12/19/23 11/26/24 Rx mcg (50,000 unit) tablet divalproex 250 mg tablet,delayed 250 mg PO ONCE 04/10/24 12/12/24 History release (Depakote) CPAP #1 ea 06/03/24 11/26/24 Rx phentermine 37.5 mg tablet 37.5 mg PO DAILY #30 tabs 09/17/24 11/26/24 Rx aripiprazole 5 mg tablet (Abilify) 5 mg PO DAILY 11/26/24 12/12/24 History drospirenone 3 mg-ethinyl 1 tablet PO DAILY 11/26/24 12/12/24 History estradiol 0.02 mg tablet (DEON (28)) lorazepam 1 mg tablet 1 mg PO BID PRN anxiety 11/26/24 12/12/24 History Allergies Allergy/AdvReac Type Severity Reaction Status Date / Time garlic AdvReac Other Verified 12/12/24 12:40 gluten AdvReac Other Verified 12/12/24 12:40 onion AdvReac Other Verified 12/12/24 12:40 Contrast Media Allergy Intermediate HIVES Uncoded 11/26/24 14:44 Vital Signs Vital Signs - 24 hr 12/12/24 12:46 Temperature 97 F L Pulse Rate 69 Respiratory Rate 18 Blood Pressure 111/73 Pulse Oximetry 100 Oxygen Delivery Room Air Exam Const: General: comfortable and no acute distress HENMT: Face/Nose/Sinus: Normal nares present Eyes: General: appearance normal, both eyes and all related structures Neck: Neck: no JVD Resp: Auscultation: clear to auscultation bilaterally Cardio: Rate: regular rate Rhythm: regular rhythm GI: Inspection: non-distended GI Palp: Yes Soft to palpation Skin: General skin exam: normal color Neuro: General: gait normal Speech: normal speech Extrem: General: normal to inspection Psych: Mental Status: mental status grossly normal Assessment and Plan Assessment and plan (1) Chronic GERD: Code(s): K21.9 - Gastro-esophageal reflux disease without esophagitis Status: Acute Assessment and Plan: egd with bx
[2024-12-12 13:25] VITALS: BP 98/60; PULSE 54; RESP 20; O2SAT 100
[2024-12-12 13:35] VITALS: BP 99/51; PULSE 60; RESP 20; O2SAT 100
[2024-12-12 13:45] VITALS: BP 104/56; PULSE 58; RESP 18; O2SAT 100
== END 2024-12-12 13:56 | disposition home or self-care (01) ==
PROVIDERS: Anesthesiology; PCP Internal Medicine; Referring Provider Clinical Nurse Specialist; Visit Provider Internal Medicine Gastroenterology
PROC: 0DJ08ZZ Inspection of Upper Intestinal Tract, Via Natural or Artificial Opening Endoscopic (ICD-10-PCS; CPT 43239; principal; 2024-12-12 13:30)
DX: K21.9 Gastro-esophageal reflux disease without esophagitis (principal); G47.33 Obstructive sleep apnea (adult) (pediatric); F32.A Depression, unspecified; F41.9 Anxiety disorder, unspecified; F84.5 Asperger's syndrome; Z99.89 Dependence on other enabling machines and devices; Z98.890 Other specified postprocedural states; Z90.49 Acquired absence of other specified parts of digestive tract; Z80.0 Family history of malignant neoplasm of digestive organs; Z80.1 Family history of malignant neoplasm of trachea, bronchus and lung; Z82.49 Family history of ischemic heart disease and other diseases of the circulatory system
CPT/HCPCS: 43239; 88305; J2003; J2704; J7120

== ENCOUNTER 2025-01-05 07:48 | Outpatient (CLI) | payer OTHER, SELFPAY ==
--- NOTE | ~2025-01-05 | CT_ITS ---
Non-contrast CT scan of the Abdomen and Pelvis Clinical indication: Epigastric pain Technique: 2.5 mm axial scans were obtained through the abdomen and pelvis without intravenous or or al contrast. Dose reduction technique was used on this scan by utilizing automated exposure control a nd iterative reconstruction technique. The dose-length product (DLP) was 462.33 mGy-cm. Findings: Images through the lung bases reveal no abnormalities. There is no evidence of renal or ureteral calculi. The kidneys and the ureters are nondilated. The liver, spleen, pancreas, and adrenals appear normal. Cholecystectomy clips are present. There is no aortic aneurysm. There is no evidence of bowel obstruction. Images through the pelvis were performed. There is no evidence of ascites or lymphadenopathy. Urinary bladder unremarkable. No pelvic mass seen. No ascites. Impression: No significant abnormality seen. Reviewed, dictated and finalized at [facility]. Impression: No significant abnormality seen.
--- OUTSIDE RECORDS SUMMARY | 2025-01-05 07:51 | XMS_ITS | Data Portability ---
Author Organization [facility] l Professional, Radiology_ Address [address] [place] [address] Care Team Providers Care Office Technologist Name Role Phone DEANNA CHAN Primary Care Provider [phone] Assessment No assessment recorded. Plan of Treatment Reminders Order Date Submit Date Provider Last Modified By Organization Details Last Modified Time Details Appointments None recorded. Lab None recorded. Referral None recorded. Procedures None recorded. Surgeries None recorded. Imaging None recorded. Medication Orders tobramycin 0.3 % eye drops 2018 019 INTERFACE [id number], [address] , [place], [address], 9 16:36:10 Patient TargetsNo targets recorded. Patient Instructions Encounter Date Encounter Id Patient Instructions Last Modified By Organization Details Last Modified Time 02/18/2019 [id number] sergio: care instructions [email or web address] Not available 02/18/2019 16:36:08 Reason for Referral None Reported. Problems Name Problem SNOMED Code Status Onset Date Resolution Date Notes Provider Name and Address Organization Details Recorded Time Attention deficit hyperactivity disorder 266868141 Active 2018 Delores child [facility] 9 15:40:55 Anxiety 37159337 Active 2018 Delores child [facility] 9 15:41:01 Depressive disorder 17734380 Active 2018 Delores child [facility] 9 15:41:08 Panic attack 630365761 Active 2018 Delores child [facility] 9 15:41:24 Migraine 78976139 Active 2018 Delores child [facility] 9 15:41:31 Problem Notes None recorded. Procedures Surgical History Date Name Laterality Status Provider Name and Address Organization Details Recorded Time cholecystectomy completed Delores [facility] Professional 02/18/2019 16:09:51 Imaging Results None recorded. Procedure Notes None recorded. Medical Equipment None Reported. Allergies Allergen ID Allergen Name Allergen Category Reaction Reaction Severity Criticality Documentation Date Start Date Code Code System Note Provider Name and Address Organization Details Recorded Time 7885 benzocain e / resorcino l medicatio n Not available Not available Not available 02/18/2019 84907 7 RxNorm Deloresana laura Cantu [facility] 9 15:40:31 Medications Name Sig [...] 9 74 /min 17 /min 98.6 [degF] 62459.2 9 g 177.8 cm 18.6 kg/m2 98 % 98 % 114 mm[Hg] 62 mm[Hg] Delores Fiske [facility] 9 16:00:44 Social History Question Answer Notes LastModified by Organizat ion Details LastModified Time Tobacco Smoking Status Never Smoker Not Available [facility] 08/06/2020 03:12:58 What Is Your Level Of Alcohol Consumption? None [id number] Information not available 08/06/2020 Which Illicit Or Recreational Drugs Have You Used? Never [id number] Information not available 08/06/2020 What Was The Date Of Your Most Recent Tobacco Screening? 02/18/2019 [id number] Information not available 08/06/2020 Sex: Unknown Functional [...] N Breast Cancer N Blood Transfusion N Depression Y Hypothyroidism N Lung Disease N COPD N Developmental or Behavioral Disorders N Defects or Inherited Disease N Breast Problem N Difficulty Swallowing N Anesthesia Complications N Meniere's disease N Anxiety Disorder Y Muscle, Joint, or Bone Problems N Obesity N Vision or Eye Problems N Arthritis N Polyps N Infertility N Mental Disorder N Cancer N Varicosities N Stroke N Endometriosis N Bladder or Kidney Problems N High Cholesterol N Liver Disease N Headaches N Fibromyalgia N Kidney Disease N Allergies/Hayfever Y Heart [...] SNOMED-CT Code Diagnosis ICD10 Code Diagnosis Note [id number] Azael Mcgee [facility] [address], [address] [place] [address] 02/18/2019 15:35:55 02/20/2019 15:41:11 Acute conjunctivitis 16111383 H10.31 Health Concerns Section Related Observation LastModified by Organization Detai ls LastModified Time None Recorded Concern Status LastModified by Organization Details LastModified Time None Recorded Advance Directives Directive None Recorded Payers Encounter Date Sequence Insurance Name Policy Number Policy [place] Covered Member ID Ragsdale Member ID Guarantor Name 02/18/2019 1 [facility] Head [id number] Notes Date Note Type Note Provider Name [...] Azael Mcgee [address], [place], [address], [facility] 02/18/2019 17:39:56 OBGyn Episode No OBEpisode recorded.
--- OUTSIDE RECORDS SUMMARY | 2025-01-05 07:53 | XMS_ITS | Referral Summary ---
Author Organization [facility] [employer] Address [address] [place] [address] Care Team Providers Care Ballistics Laboratory Gunsmith Name Role Phone Ro Mahoney MD Primary Care Provider [phone] Prisca Kidd RN Unavailable [phone] Source Comments [facility],non-[facility] Affiliates and Associated Physician Practices is amultiple site organization consisting of ambulatory clinics and hospital sitesin [place], [place], [place] and [place]. This disclosure is being madepursuant to the Care Everywhere program and may not contain all information available regarding this patient. Last updated 18.[facility] [employer] Allergies Active Allergy Reactions Criticality Noted Date Comments Codeine 03/05/2011 Breathing problems Iodine 03/05/2011 Red Dye Urticaria 09/21/2015 Medications * Be aware that medications may not be up to date on this document. Alwaysverify current medications with the patient. Medication Sig Dispensed Refills Start Date End Date Status phenazopyridine (PYRIDIUM) 200 MG tablet Take 200 mg by mouth 3 times daily as needed. Active LORazepam (ATIVAN) 1 MG tablet Take 1 mg by mouth at bedtime Reported on 11/15/2016 Active SPRINTEC 28 0.25-35 MG-MCG tablet 11/04/2016 Active venlafaxine XR 24hr (EFFEXOR XR) 75 MG capsule Take 75 mg by mouth once daily 2 10/03/2016 Active QUEtiapine (SEROQUEL) 25 MG tablet Take 25 mg by mouth once daily 0 10/03/2016 Active pantoprazole EC (PROTONIX) 40 MG tabletIndications:Nause a and vomiting, intractability of vomiting not specified, unspecified vomiting type,Epigastric pain,Gastritis without bleeding, unspecified chronicity, unspecified gastritis type Take 1 Tab by mouth once daily 90 Tab 3 11/15/2016 Active sucralfate (CARAFATE) 1 GM tabletIndications:Epiga stric pain,Acute superficial gastritis without hemorrhage Take 1 Tab by mouth 4 times daily - before meals & nightly 120 Tab 11 11/20/2016 Active Active Problems Problem Noted Date Diagnosed Date Abdominal pain, generalized 07/06/2013 Social History Tobacco Use Types Packs/Day Years Used Date Smoking Tobacco: Never Smokeless Tobacco: Never Alcohol Use Standard Drinks/Week Comments No 0 (1 standard drink = 0.6 oz pur e alcohol) Sex and Gender Information Value Date Recorded Sex Assigned at Not on file Gender Identity Not on file Sexual Orientation Not on file Last Filed Vital Signs Vital Sign Reading Time Taken Comments Blood Pressure 108/64 11/15/2016 1:41 PM TOOL TECHNICIAN Pulse 80 11/15/2016 1:41 PM TOOL TECHNICIAN Temperature 37 C (98.6 F) 09/23/2015 9:12 AM TOOL TECHNICIAN Respiratory Rate 14 11/15/2016 1:41 PM TOOL TECHNICIAN Oxygen Saturation 98% 11/15/2016 1:41 PM TOOL TECHNICIAN Inhaled Oxygen Concentration - - Weight 68.9 kg (152 lb) 11/15/2016 1:41 PM TOOL TECHNICIAN Height 175.3 cm (5' 9 ) 09/21/2015 3:48 AM TOOL TECHNICIAN Body Mass Index 22.45 09/21/2015 3:48 AM TOOL TECHNICIAN Functional Status Functional Status Response Date of Assess ment Is person deaf or have serious hearing difficult y? No 09/21/2015 Is person blind or have serious difficulty seein g? No 09/21/2015 Does person have serious dif ficulty walking/climbing stairs? No 09/21/2015 Does person have difficulty dressing/bathing? No 09/21/2015 Does person have difficulty doing errands alone? No 09/21/2015 Cognitive Status Response Date of Assessm ent Does person have difficulty concentrating/remembering/making decisions? No 09/21/2015 Plan of Treatment Not on file Advance Directives * Full Code (Latest Code Status on File) Date Activated Date Inactivated Comments 09/21/2015 4:05 AM 09/23/2015 1:04 PM Care Teams Ballistics Laboratory Gunsmith Relationship Specialty Start Date End Date Ro Mahoney MD [address] [place] [address] PCP - General 03/05/11 Prisca Kidd, RN Etl Database Developer 09/21/15
--- OUTSIDE RECORDS SUMMARY | 2025-01-05 07:53 | XMS_ITS | Clinical Summary ---
Author Organization [facility] [employer] Address [address] [place] [address] Care Team Providers Care Player Services Representative Name Role Phone Ro Mahoney MD Primary Care Provider [phone] Prisca Kidd RN Unavailable [phone] Source Comments [facility],non-[facility] Affiliates and Associated Physician Practices is amultiple site organization consisting of ambulatory clinics and hospital sitesin [place], [place], [place] and [place]. This disclosure is being madepursuant to the Care Everywhere program and may not contain all information available regarding this patient. Last updated 18.[facility] [employer] Allergies Active Allergy Reactions Criticality Noted Date [...] Date Diagnosed Date Abdominal pain, generalized 07/06/2013 Family History Medical History Relation Name Comments Cancer - Colon Paternal Grandmother Colon polyps Neg Hx Relation Name Status Comments Paternal Grandmother Social History Tobacco Use Types Packs/Day Years [...] Comments Blood Pressure 108/64 11/15/2016 1:41 PM ICE RINK ATTENDANT Pulse 80 11/15/2016 1:41 PM ICE RINK ATTENDANT Temperature 37 C (98.6 F) 09/23/2015 9:12 AM ICE RINK ATTENDANT Respiratory Rate 14 11/15/2016 1:41 PM ICE RINK ATTENDANT Oxygen Saturation 98% 11/15/2016 1:41 PM ICE RINK ATTENDANT Inhaled Oxygen Concentration - - Weight 68.9 kg (152 lb) 11/15/2016 1:41 PM ICE RINK ATTENDANT Height 175.3 cm (5' 9 ) 09/21/2015 3:48 AM ICE RINK ATTENDANT Body Mass Index 22.45 09/21/2015 3:48 AM ICE RINK ATTENDANT Plan of Treatment Health Maintenance Due Date Last Done Comments LIPID TESTING 1985 MAMMOGRAM 1984 PAP SMEAR 1984 HIV SCREENING 1999 HEPATITIS C SCREENING 09/14/2002 DTAP/TDAP/TD VACCINES (1 - Tdap) 2003 HEPATITIS B VACCINE (1 of 3 - 19+ 3-dose series) 2003 COVID-19 VACCINE ( - 2023-2 5 season) 2024 INFLUENZA VACCINE (#1) 2024 DEPRESSION SCREENING 10/22/2024 ZOSTER VACCINE (1 of 2) 2034 HIB VACCINE Aged Out No longer eligi ble based on patient's age to complete this topic HPV VACCINE Aged Out No longer eligi ble based on patient's age to complete this topic MENINGOCOCCAL (Group B) VACC INE SHARED DECISION-MAKING Aged Out No longer eligibl e based on patient's age to complete this topic MENINGOCOCCAL GROUPS A/C/Y/W VACCINE Aged Out No longer eligible b ased on patient's age to complete this topic PNEUMOCOCCAL VACCINE Aged Out No long er eligible based on patient's age to complete this topic Advance Directives * Full Code (Latest Code Status on File) Date Activated Date Inactivated Comments 09/21/2015 4:05 AM 09/23/2015 1:04 PM Care Teams Player Services Representative Relationship Specialty Start Date End Date Ro Mahoney MD [address] [place] [address] PCP - General 03/05/11 Prisca Kidd, RN Director Of Government Sales 09/21/15
--- OUTSIDE RECORDS SUMMARY | 2025-01-05 07:53 | XMS_ITS ---
Author Organization [facility] [employer] Address [address] [place] [address] Care Team Providers Care Kst Operator Name Role Phone Philipp Burger DO Primary Care Provider Donnie Lucas Unavailable [phone] REASON FOR VISIT Appt and Refills Medications [...] Female Encounters Encounter Location Date Provider Diagnosis [facility] [address] [place] [address] 12/05/2024 Donnie Du Bipolar disorder, current episode [...] Next Appt Details Provider Name:Donnie de leon, 02/03/2025 04:15:00 PM, [address], [address], [place], [address], Progress Notes * DAMIAN TAPIA NDOB:[birth year] (39 yo F)Acc No.[id number]:12/05/2024 Patient: DAMIAN ZAMUDIO :1985 A ge:39 Y S ex:Female Address:[address] [place], [place] [id number] * Refills Refill ARIPiprazole Tablet, 5 MG, Orally, 30, 1 tablet, Once a day, 30 days, Refills=1 Refill OLANZapine Tablet, 10 MG, Orally, 30 Tablet, 1 tablet, Once a day, 30 days, Refills=1 * true * Date: Generated for Lory bedolla/Danae/Siditting on: 0 01/05/2025 07:53 AM CDT
--- OUTSIDE RECORDS SUMMARY | 2025-01-05 07:53 | XMS_ITS | Clinical Summary ---
Author Organization [facility] Address [address] [place] [address] Phone Care Team Providers Care Bicycle Technician Name Role Phone Unavailable Primary Care Provider Unavailabl e Allergies Active Allergy Reactions Criticality Noted Date Comments Red Dye #40 (Allura Red) Hives,Rash Medications [place]-Cshvjl-Eyjoqu ne-[place] ER 48.6 MG Tablet Controlled Release [...] on file Legal Sex Female 2:47 AM ORTHOPEDIC NURSE Gender Identity Not on file Sexual Orientation [...]
--- OUTSIDE RECORDS SUMMARY | 2025-01-05 07:53 | XMS_ITS | Clinical Summary ---
Author Organization [facility] Address [facility] [place] [address] Care Team Providers Care Accounts Officer Name Role Phone Philipp Burger DO Primary Care Provider [phone] Encounters Date Type Department Care Team Description 12/24/2024 2:34 PM ANIMAL CONTROL SUPERVISOR - 12/24/2024 11:59 PM ANIMAL CONTROL SUPERVISOR Hospital Encounter [facility] Imaging Center Mammography [address] [place] [id number] Jostin Wang MD Midkiff, Christina L, MD Discharge Disposition: Home or Self Care (Routine Discharge) 12/24/2024 Travel from Last 3 Months Family History Medical History Relation Comments Throat cancer Maternal Grandfather Colon Cancer Paternal Grandmother Relation Status Comments Maternal Grandfather Alive Paternal Grandmother Social History Tobacco Use Types Packs/Day Years Used Date Smoking Tobacco: Never Assessed Comments Unknown Sex and Gender Information Value Date Recorded Sex Assigned at Female 12/24/2024 2:27 PM ANIMAL CONTROL SUPERVISOR Legal Sex Female 8:15 PM CDT Gender Identity Not on file Sexual Orientation Not on file Plan of Treatment Health Maintenance Due Date Last Done Comments Cervical Cancer Screening Pap Smear (Age 30 to 64) Every 3 Years 1984 Annual Physical 1987 Hepatitis C 2002 DTaP, Tdap and Td Vaccines (1 - Tdap) 2003 Hepatitis B Vaccines (1 of 3 - 19+ 3-dose series) 2003 Cervical Cancer Screening Pap with HPV Testing (Age 30 to 64) Every 5 Years 2014 Cervical Cancer Screening with HPV 2014 Influenza Adult (#1) 2024 Mammogram Screening 12/24/2026 12/24/2024 COVID-19 Vaccine Completed 09/16/2024, , 09/29/2022, Additional history exists HPV Vaccines Aged Out No longer eligi ble based on patient's age to complete this topic Meningococcal B Vaccine Aged Out No l onger eligible based on patient's age to complete this topic Meningococcal Vaccine Aged Out No lanny macho eligible based on patient's age to complete this topic Pneumococcal Vaccine: Pediatrics (0 to 5 Years) and At-Risk Patients (6 to 64 Years) Aged Out No longer eligible based on patient's age to complete this topic RSV Immunizations Under 20 Months Aged Out No longer eligible based on patient's age to complete this topic Procedures Procedure Name Priority Date/Time Associated Diagnosis Comments MG SCREENING W SANDRA MONIQUE DIGI Routine 12/24/2024 3:03 PM ANIMAL CONTROL SUPERVISOR Visit for screening mammogram from Last 3 Months Results * MG SCREENING W SANDRA MONIQUE DIGI (12/24/2024 3:03 PM ANIMAL CONTROL SUPERVISOR) Anatomical Region Laterality Modality Breast Bilateral Mammography 12/24/2024 4:20 PM ANIMAL CONTROL SUPERVISOR Impressions 12/24/2024 4:26 PM ANIMAL CONTROL SUPERVISOR IMPRESSION: No suspicious mammographic findings. Recommendation: 1. Routine Screening, Bilateral Assessment: ACR BI-RADS 1 - NEGATIVE Ordered By: JOSTIN WANG Interpreted By: Arley Byers MD, 12/24/2024 4:20 PM Narrative 12/24/2024 4:26 PM ANIMAL CONTROL SUPERVISOR [facility] Imaging Center [address] [address] Examination: Screening bilateral mammogram Exam Date: 12/24/2024 2:46 PM Clinical history: Routine screening. Baseline exam. Comparison: None. Technique: Digital screening mammography of both breasts was performed. Breast tomosynthesis acquisitions were obtained and reviewed. This study was read with the assistance of a computer-aided detection system. Tissue density: There are scattered areas of fibroglandular density. Findings: The breast parenchymal pattern is grossly symmetric, within physiologic limits. There are no suspicious calcifications, masses, architectural distortion or skin thickening on either side. us Jostin Wang MD MAMMO Final Result from Last 3 Months Insurance [employer] Care Teams Accounts Officer Relationship Specialty Start Date End Date Philipp Burger DO [address] [facility] [address] [place], [place] [id number] PCP - General INTERNAL MEDICINE 12/24/24
--- OUTSIDE RECORDS SUMMARY | 2025-01-05 07:53 | XMS_ITS | Patient Health Record ---
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 Role Phone Philipp Burger DO Primary Care Provider Donnie Lucas Unavailable [phone] Migration, Provider Unavailable Unavailable Allergies No Known Allergies Reason For Referral No Information Medications Medication SIG (Take, Route, Frequency, Duration) Notes Start Date End Date Status Triamcinolone Acetonide 0.1% External 02/21/2024 Active Zolpidem Tartrate 10 MG 1 tablet at bedt adolfo Oral once a day for 30 days 09/11/2024 Active OLANZapine 5 MG 1 tablet Orally Once a day for 30 days Active Divalproex Sodium ER 250 MG Take 1 tablet by mouth once daily Oral Once a day for 90 days Active Sertraline HCl 100 MG 1 tablet Orally On ce a day for 90 days Active Zolpidem Tartrate 10 MG 1 tablet at bedtime Oral once a day for 30 days As needed Active LORazepam 1 MG 1 tablet Oral twice daily for 30 days As needed Active ARIPiprazole 10 MG 1 tablet Orally Once a day for 30 days dose increase Active Immunizations Vaccine Route Administration Date Status [...] Risk Notes Problem Mixed bipolar I disorder (96738278) Bipolar disorder, current episode mixed, unspecified (F31.60) 4 Active confirmed Problem Generalized anxiety disorder (96936814) Generalized anxiety disorder (F41.1) 4 Active confirmed Problem Insomnia (376891307) Other insomnia (G47.09) 4 Active confirmed Vital Signs Heart Rate 93 /min 01/01/2025 Blood pressure diastolic 73 mm Hg 01/01/2025 Height-cm 175.26 cm 01/01/2025 Weight-kg 78.47 kg 01/01/2025 Height 69.00 in 01/01/2025 Blood pressure systolic 116 mm Hg 01/01/2025 Weight 173 lbs 01/01/2025 BMI 25.54 kg/m2 01/01/2025 Encounters Encounter Location Date Provider Diagnosis [facility] [address] [facility] [address] [place] [address] 01/22/2024 Donnie Du Bipolar disorder, current episode mixed, unspecified F31.60 ; Other insomnia G47.09 and Generalized anxiety disorder F41.1 [facility] [address] [place] [address] [place] [address] 02/21/2024 Donnie Du Generalized anxiety disorder F41.1 ; Bipolar disorder, current episode mixed, unspecified F31.60 and Other insomnia G47.09 [facility] [employer] [facility] [address] [place] [address] [place] [address] 03/27/2024 Donnie Du Generalized anxiety disorder F41.1 ; Other insomnia G47.09 and Bipolar disorder, current episode mixed, unspecified F31.60 [facility] [address] [place] [address] [place] [address] 05/27/2024 Donnie Du Generalized anxiety disorder F41.1 ; Other insomnia G47.09 and Bipolar disorder, current episode mixed, unspecified F31.60 [facility] [employer] [facility] [address] [place] [address] [place] [address] 09/04/2024 Donnie Du Generalized anxiety disorder F41.1 ; Other insomnia G47.09 and Bipolar disorder, current episode mixed, unspecified F31.60 [facility] [address] [place] [address] [place] [address] 10/23/2024 Donnie Du Generalized anxiety disorder F41.1 ; Other insomnia G47.09 and Bipolar disorder, current episode mixed, unspecified F31.60 [facility] [address] [facility] [address] [place] [address] 01/01/2025 Donnie Du Encounter for screening for depression Z13.31 ; Encounter for screening for cardiovascular disorders Z13.6 ; Generalized anxiety disorder F41.1 ; Other insomnia G47.09 and Bipolar disorder, current episode mixed, unspecified F31.60 [facility] [employer] [facility] [address] [address] 01/07/2024 Provider Migration [facility] [employer] [facility] [address] [facility] [address] [place] [address] 02/05/2024 Provider Migration [facility], [facility] [address] [address] 03/06/2024 Provider Migration [facility] [employer] [facility] [address] [address] 03/08/2024 Provider Migration [facility] [facility] [address] [address] 03/09/2024 Provider Migration [facility] [employer], [facility] [address] [address] 09/15/2024 Donnie Du [facility] [employer] [facility] [address] [address] 12/05/2024 Donnie Du Bipolar disorder, current episode mixed, unspecified F31.60 Assessments Encounter Date Diagnosis (ICD Code) Assessment Notes Treatment Notes Treatment Clinical Notes Section Notes 03/27/2024 Generalized anxiety disorder (ICD-10 - F41.1) cont sertraline 100mg daily 03/27/2024 Other insomnia (ICD-10 - G47.09) cont zolpidem 10mg hs prn 02/21/2024 Bipolar disorder, current episode mixed, unspecified (ICD-10 - F31.60) 02/21/2024 Generalized anxiety disorder (ICD-10 - F41.1) 02/21/2024 Other insomnia (ICD-10 - G47.09) 01/22/2024 Bipolar disorder, current episode mixed, unspecified (ICD-10 - F31.60) 01/22/2024 Generalized anxiety disorder (ICD-10 - F41.1) 01/22/2024 Other insomnia (ICD-10 - G47.09) 12/05/2024 Bipolar disorder, current episode mixed, unspecified (ICD-10 - F31.60) 01/01/2025 Encounter for screening for depression (ICD-10 - Z13.31) 10/23/2024 Generalized anxiety disorder (ICD-10 - F41.1) cont lorazepam 1mg prn, sertraline 100mg daily 09/04/2024 Generalized anxiety disorder (ICD-10 - F41.1) [...] plan and any changes in symptoms. 05/27/2024 Generalized anxiety disorder (ICD-10 - F41.1) [...] symptoms occurring before or after anxiety attacks. 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 05/27/2024 Other insomnia (ICD-10 - G47.09) zolpidem [...] symptoms occurring before or after anxiety attacks. 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 09/04/2024 Other insomnia (ICD-10 - G47.09) zolpidem [...] treatment plan and any changes in symptoms. 01/01/2025 Encounter for screening for cardiovascular disorders (ICD-10 - Z13.6) 10/23/2024 Other insomnia (ICD-10 - G47.09) zolpidem 10mg hs 03/27/2024 Bipolar disorder, current episode mixed, unspecified (ICD-10 - F31.60) start depakote er 250mg every evening cont olanzapine 10mg hs Plasma concentrations of OLANZapine Oral Tablet 10 MG may be decreased by Divalproex Sodium ER 09/04/2024 Bipolar disorder, current episode mixed, unspecified [...] plan and any changes in symptoms. 10/23/2024 Bipolar disorder, current episode mixed, unspecified (ICD-10 - F31.60) olanzapine hs, divalproex er 250mg hs 01/01/2025 Generalized anxiety disorder (ICD-10 - F41.1) cont lorazepam 1mg prn, sertraline 100mg daily 05/27/2024 Bipolar disorder, current episode mixed, unspecified [...] symptoms occurring before or after anxiety attacks. 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 01/01/2025 Other insomnia (ICD-10 - G47.09) zolpidem 10mg hs 01/01/2025 Bipolar disorder, current episode mixed, unspecified (ICD-10 - F31.60) olanzapine hs, divalproex er 250mg hs 01/01/2025 Other 1. Bipolar Disorder with Anxiety: - Patient reports exacerbation of anxiety symptoms over the past two weeks, describing it as a dumpster fire. - Expresses worry about job security despite having a good year, indicating possible irrational fears. - Current medication regimen includes Abilify, olanzapine, and lorazepam. - Patient notes reduced efficacy of olanzapine, manifesting as increased anxiety and irritability. - Reports some positive effects from reduced olanzapine, including increased energy and decreased frequency of an unspecified eye problem. 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 Plan: - Increase Abilify to 10 mg PO daily for better management of bipolar symptoms - Continue olanzapine 5 mg PO daily - Continue Depakote 250 mg PO once daily at night - Continue sertraline 100 mg PO daily for anxiety - Continue lorazepam 1 mg PO twice daily as needed for anxiety, with counseling on risks of long-term use and tolerance - Maintain zolpidem (Ambien) on medication list for emergency use, but not for regular use - Follow up in one month 2. Insomnia: - Patient reports difficulty sleeping, currently relying on lorazepam 2 mg taken 2-3 hours before bedtime. - Has not been using prescribed zolpidem (Ambien) recently. - Initiated self-treatment with passionflower serum tincture and magnesium supplement, reporting some efficacy in sleep improvement. Plan: - Encourage continued use of non-pharmacologi nadeem sleep aids (passionflower serum tincture, magnesium supplement) as tolerated - Hospital Unit Clerk on risks of long-term benzodiazepine use for sleep, including tolerance and dependence - Advise gradual reduction of lorazepam use for sleep, reserving it for as-needed anxiety management Plan Of Treatment Next Appt Details Provider Name:Donnie de leon, 02/03/2025 04:15:00 PM, [facility] [address] [facility] [address], [place], [address], Insurance Providers Payer Name Payer Address Payer Phone Subscriber Number Group Number Insured Name Patient Relationship to Insured Coverage Start Date Coverage End Date [employer] [address] [place] [address] [id number] DAMIAN TAPIA Self - patient is the insured Medical (General) History Medical History History ICD Code Problems: Bipolar affective disorder, cu rrent episode mixed Drug-induced dystonia Generalized anxiety disorder Persistent insomnia , Surgical History Surgery Date(Month/Year) Removal of gallbladder (16164) 5
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
--- OUTSIDE RECORDS SUMMARY | 2025-01-05 07:54 | XMS_ITS | Referral Summary ---
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
--- OUTSIDE RECORDS SUMMARY | 2025-01-05 07:54 | XMS_ITS | Clinical Summary ---
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
--- OUTSIDE RECORDS SUMMARY | 2025-01-05 07:54 | XMS_ITS | Clinical Summary ---
Author Organization [facility] [address] [place] [address] [place] [address] Care Team Providers Care Lost And Found Clerk Name Role Phone Tarun Barber MD Primary Care Provider Allergies Active Allergy Reactions Criticality Noted Date Comments Qkaiyinfpy-Rsc-Wuql-Vit s E,A,D Hives High 05/09/2017 Eszopiclone Other [...] mouth daily. Psych Dr Philipp Blount in [place] 1 Active lamoTRIgine (LaMICtal) 25 mg tablet [...] eating disorder, sees a food counselor and test examiner Interstitial cystitis 05/29/2018 Pelvic floor dysfunction 05/29/2018 [...] of this finding. 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 See individual assays for performing site location. CLINICAL INFORMATION [facility] Comment:SCREENING LAST MENSTRUAL PERIOD [facility] Comment:NONE GIVEN PREV PAP: [facility] Comment:NONE GIVEN PREV BX: [facility] Comment:NONE GIVEN SOURCE [facility] Comment:Endocervix ADEQUACY: [facility] Comment: Satisfactory for evaluation. Endocervical/transformation zone component present. Age and/or menstrual status not provided PAP INTERP [facility] Comment: Cytology Results: Negative for intraepithelial lesion or malignancy. COMMENT (PAP TEST) [facility] Comment: This Pap test has been evaluated with computer assisted technology. QUILL WORKER: Leo Miguel Comment: ERIC, CT(ASCP) CT screening location: [place] [address] [place] [address] EXPLANATORY NOTE Que Carmelo Miguel Comment: EXPLANATORY NOTE: The Pap is [...] information. HPV E6/E7 Not Detected Not Detected [facility] Comment: Methodology: Research Recruiter-Mediated Amplification This assay detects E6/E7 viral messenger RNA (mRNA) from 14 high-risk HPV types (16,18,31,33,35,39,45,51,52,56,58,59,66,68). Cervical sources are required for HPV testing. If a vaginal source from a patient who has had a total hysterectomy with removal of cervix was submitted, please contact the testing laboratory for alternative testing options. For additional information, please refer to http://[employer].groSolar/faq/ZQY571c3 (This link if provided for information/ educational purposes only.) C TRAC RNA NOT DETECTED NOT DETECTED [facility] N.GONORRHOEAE RNA, TMA NOT DETECTED NOT DETECTED [facility] COMMENT INFECTIOUS DISEASE [facility] Comment: The analytical performance characteristics of this assay, when used to test SurePath(TM) specimens have been determined by [facility]. The modifications have not been cleared or approved by the FDA. This assay has been validated pursuant to the CLIA regulations and is used for clinical purposes. For additional information, please refer to https://PowerPlan/faq/QQX654 (This link is being provided for information/ educational purposes only.) TRICHOMONAS VAGINALIS,QUALITAT FREDRICK,PAP VIAL NOT DETECTED NOT DETECTED [facility] Comment: The analytical performance characteristics of this assay have been determined by [facility]. The modifications have not been cleared or approved by the FDA. This assay has been validated pursuant to the CLIA regulations and is used for clinical purposes. For additional information, please refer to http://[employer].groSolar/ faq/Trichomonastma (This link is being provided for information/ educational purposes only.) Test Performed at: [facility] [address] [place] [address] [facility] Gen[facility] SWAB OF ENDOCERVIX / Unknown 07/19/2023 9:54 AM CDT 07/20/2023 3:29 AM CDT Deanna Sparks DO PATHOLOGY/CYTOLOGY ORDERABLES Final Result [facility] [phone] [facility] [address] [facility] [place] [address] from Last 3 Months or Most Recently Relevant to Health Maintenance Insurance [employer] CHO[employer] POS II Care Teams Lost And Found Clerk Relationship Specialty [place] [address] [place] [id number] PCP - General Internal Medicine 05/28/18
--- OUTSIDE RECORDS SUMMARY | 2025-01-05 07:54 | XMS_ITS ---
Author Organization [facility] [employer] Address [address] [facility] [address] [place] [address] Care Team Providers Care Telephone Information Clerk Name Role Phone Philipp Burger DO Primary Care Provider Donnie Lucas Unavailable [phone] Allergies No Known Allergies REASON FOR VISIT Follow up, Depression screening positive Medications Medication SIG (Take, Route, Frequency, Duration) [...] day for 30 days dose increase Active Social History Tobacco Use: Social History Observation Description Date Details (start date - stop date) Never Smoker NA - NA Sex Assigned At : Social History Observation Description Sex Assigned At Female Tobacco Control (Standard) Question Answer Notes Tobacco use: Nonsmoker Vital Signs Blood pressure systolic 116 mm Hg 01/02/20 25 Blood pressure diastolic 73 mm Hg 025 Heart Rate 93 /min 01/01/2025 Height 69.00 in 01/01/2025 Weight 173 lbs 01/01/2025 BMI 25.54 kg/m2 01/01/2025 Height-cm 175.26 cm 01/01/2025 Weight-kg 78.47 kg 01/01/2025 Encounters Encounter Location Date Provider Diagnosis [facility] [employer] [facility] [address] [place] [address] 01/01/2025 Donnie Du Encounter for screen ing for depression Z13.31 ; Encounter for screening for cardiovascular disorders Z13.6 ; Generalized anxiety disorder F41.1 ; Other insomnia G47.09 and Bipolar disorder, current episode mixed, unspecified F31.60 Assessments Encounter Date Diagnosis (ICD Code) Assessment Notes Treatment Notes Treatment Clinical Notes Section Notes 01/01/2025 Encounter for screening for depression (ICD-10 - Z13.31) 01/01/2025 Encounter for screening for cardiovascular disorders (ICD-10 - Z13.6) 01/01/2025 Generalized anxiety disorder (ICD-10 - F41.1) cont lorazepam 1mg prn, sertraline 100mg daily 01/01/2025 Other insomnia (ICD-10 - G47.09) zolpidem [...] PMDD, initiated 4-5 days ago by her dog licenser. Plan: - Increase Abilify to 10 mg [...] improvement. 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 Operator on risks of long-term benzodiazepine use for sleep, including tolerance and dependence - Advise gradual reduction of lorazepam use for sleep, reserving it for as-needed anxiety management Plan Of Treatment Medication Medication Name Sig Start Date Stop Date Notes OLANZapine 5 MG 1 tablet Orally Once a day for 30 days Divalproex Sodium ER 250 MG Take 1 table t by mouth once daily Oral Once a day for 90 days Sertraline HCl 100 MG 1 tablet Orally On ce a day for 90 days Zolpidem Tartrate 10 MG 1 tablet at bedt adolfo Oral once a day for 30 days LORazepam 1 MG 1 tablet Oral twice daily for 30 days ARIPiprazole 10 MG 1 tablet Orally Once a day for 30 days dose increase Treatment Notes Assessment Notes Generalized anxiety disorder cont loraze danae 1mg prn, sertraline 100mg daily Other insomnia zolpidem 10mg hs Bipolar disorder, current ep isode mixed, unspecified olanzapine hs, divalproex er 250mg hs Next Appt Details Follow Up: 4 Weeks, Reason: f/u anxiety, bipolar d/o Provider Name:Donnie de leon, 02/03/2025 04:15:00 PM, [facility] [address] [facility] [address], [place], [address], Progress Notes * DAMIAN HEAD NDOB:[birth year] (39 yo F)Acc No.[id number]:01/01/2025 Patient: Alfonso CABALLERODAMIAN Provider: CIRO RODRIGUEZHNP :1985 A ge:39 Y S ex:Female Date:01/01/2025 Address:[address] [place], [place] Pcp:Philipp Burger DO Subjective: * Chief Complaints: * F ollow upDepression screening positive * HPI: C [place]-Suicide Severity Rating Scale: the note is transcribed using speech recognition software. It is a reflection of a visit with the patient. It might have some inaccuracy, including medication names and transcribing errors, though efforts have been made to correct them. Chief complaint- Worsening anxiety, increased irritability. Damian Head presents with worsening anxiety, which she describes as a dumpster fire. She reports increased worry about everything and a need for frequent lorazepam use over the past couple of weeks. The patient has a history of bipolar disorder and is currently on multiple psychiatric medications. Ms. 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 She expresses an irrational fear of not being rehired. The patient notes increased irritability and attributes some of her symptoms to the reduced effectiveness of olanzapine. While she acknowledges positive aspects of decreased olanzapine effects, such as less exhaustion, more energy, and reduced occurrence of an eye problem (now only once a month), she feels the medication is not there in managing her anxiety and irritability. The patient reports taking lorazepam both in the morning and evening, with concerns about its diminishing effectiveness. She now requires 2 mg of lorazepam to achieve sleep, taking it 2-3 hours before bedtime. Ms. Head has not used Ambien recently. To aid sleep, she has been using passionflower serum tincture and magnesium supplements, which she finds helpful. Regarding medication changes, the patient's dog licenser recently prescribed Marleny (or its generic equivalent) for suspected premenstrual dysphoric disorder (PMDD), which she has been taking for 4-5 days. Ms. Head expresses concern about completely discontinuing olanzapine, as it helps prevent vomiting. She also mentions past use of quetiapine at 25 mg for 6 years, which was effective but caused fatigue. The patient reports discontinuing regular use of zolpidem about a month ago due to tolerance issues, but wishes to keep it available for emergencies. She has been adherent to her current medication regimen, including Depakote, sertraline, and lorazepam, but expresses concerns about the effectiveness of her current treatment plan in managing her anxiety symptoms. Suicide Risk (CSRS-screener) i n the past one month Have you wished you were or wished you could go to sleep and not wake up? N o i n the past one month Have you actually had any thoughts of killing yourself? N o H ave you ever done anything, started to do anything, or prepared to do anything to end your life? N o D epression screening: PHQ-9 L ittle interest or pleasure in doing things?Several days F eeling down, depressed, or hopeless S everal days T rouble falling or staying asleep, or sleeping too much M ore than half the days F eeling tired or having little energy M ore than half the days P oor appetite or overeating M ore than half the days F eeling bad about yourself or that you are a failure, or have let yourself or your family down N ot at all T rouble concentrating on things, such as reading the newspaper or watching television N ot at all M oving or speaking so slowly that other people could have noticed; or the opposite, being so fidgety or restless that you have been moving around a lot more than usual N ot at all T houghts that you would be better off or of hurting yourself in some way N ot at all T otal Score 8 I nterpretation M ild Depression Intervention D epression Screening Findings P ositve F ollow-Up for Depression M entid health treatment assessment, Patient follow-up to return when and if necessary S uicide Risk Assessment Performed 0 01/01/2025 A dditional Evaluation for Depression P sychiatric interview and evaluation N karolina of the standardized tool used for adult depression screening: P atient Health Questionnaire (PHQ-9) H istory of Presenting Problem: Depression s tates not depressed, a little apathetic. Psychosis h x hallucinations. Sleep disturbance h ad sleep study, mild sleep apnea, uses cpap. States she is tired in the morning until afternoon, difficult to fall asleep at night. . ? P ast Psychiatric Medications: Olanzapine, sertraline, lamotrigine, lybalvi, hydroxyzine, Lunesta, zaleplon, zolpidem, quetiapine. * ROS: P erformance Met: N ormal blood pressure reading documented, follow-up not required ( G8783). * Medical History: * Surgical History: * Hospitalization/Major Diagno stic Procedure: * Social History: T obacco Use: T obacco Control (Standard) T obacco use: N onsmoker M igrated Social History: M igrated Social History: Alcohol Intake: None 02/03/2022,Tobacco Years: Never smoker 01/07/2021. M iscellaneous: A dvance Care Planning A re you your own decision-maker Y es D o you have Power of Farm Machine Operator for Health or Medical? N o * Medications: T akingTriamcinolone Acetonide 0.1% Cream External Zolpidem Tartrate 10 MG Tablet 1 tablet at bedtime Oral once a day Divalproex Sodium ER 250 MG Tablet Extended Release 24 Hour Take 1 tablet by mouth once daily Oral Once a day Sertraline HCl 100 MG Tablet 1 tablet Orally Once a day LORazepam 1 MG Tablet 1 tablet Oral twice daily As neededZolpidem Tartrate 10 MG Tablet 1 tablet at bedtime Oral once a day As neededARIPiprazole 5 MG Tablet 1 tablet Orally Once a day OLANZapine 5 MG Tablet 1 tablet Orally Once a day Medication List reviewed and reconciled with the patientTaking Triamcinolone Acetonide 0.1% Cream External Taking Zolpidem Tartrate 10 MG Tablet 1 tablet at bedtime Oral once a day Taking Divalproex Sodium ER 250 MG Tablet Extended Release 24 Hour Take 1 tablet by mouth once daily Oral Once a day Taking Sertraline HCl 100 MG Tablet 1 tablet Orally Once a day Taking LORazepam 1 MG Tablet 1 tablet Oral twice daily As neededTaking Zolpidem Tartrate 10 MG Tablet 1 tablet at bedtime Oral once a day As neededTaking ARIPiprazole 5 MG Tablet 1 tablet Orally Once a day Taking OLANZapine 5 MG Tablet 1 tablet Orally Once a day Medication List reviewed and reconciled with the patient * Allergies: N .K.D.A.no[Allergies Verified] Objective: * Vitals: B P:116/73mm Hg, HR:93/min, Wt:173lbs, Wt-k.47 kg, Ht: 69.00 in, Ht-cm: 175.26 cm, BMI:25.54Index, Body Surface Area: 1.95. * Examination: P sychiatry: Appearance: w ell-groomed, well-nourished, ...hair colored blue and purple. Abnormal body movements: a bnormal eye movements, [...] content: a ppropriate. Thought process: i ntact. G eneral Examination: - Mental Status Examination: - Mood: Patient reports My anxiety is a dumpster fire. Describes being worried about everything and feeling irritable. - Thought Process: Generally linear and goal-directed. - Thought Content: Preoccupation with job security, expressing irrational fear that they're not going to rehire me again this year. - Cognition: Alert and able to engage in conversation about symptoms and treatment. - Insight: Fair insight. Patient recognizes increased anxiety symptoms and discusses medication effects. - Judgment: Fair judgment. Patient demonstrates ability to discuss medication changes and their effects, as well as seeking alternative remedies like passionflower serum tincture. Assessment: * Assessment: 1. G eneralized anxiety disorder - F41.1 (Primary) 2 . E ncounter for screening for depression - Z13.31 3 . E ncounter for screening for cardiovascular disorders - Z13.6 4 . O ther insomnia - G47.09 5 . B ipolar disorder, current episode mixed, unspecified - F31.60 Plan: * Treatment: 2. O ther insomnia Continue Zolpidem Tartrate Tablet, 10 MG, 1 tablet [...] Tablet, Refills 1; S tart ARIPiprazole Tablet, 10 MG, 1 tablet, Orally, Once a day, 30 days, 30, Refills 1, Notes to Pharmacist: dose increase. Notes: olanzapine hs, divalproex er 250mg hs 4. O thers Clinical Notes: 1. Bipolar Disorder with Anxiety: - Patient [...] PMDD, initiated 4-5 days ago by her dog licenser. Plan: - Increase Abilify to 10 mg [...] improvement. 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 * Procedure Codes: 05968 BEHAV ASSMT W/SCORE & DOCD/STAND INSTRUMENT. G8783 NORMAL BP READING DOC F/U NOT RQR. G8431 CLIN DEPRESSION SCREEN DOC. G8752 MOST RECENT SYSTOLIC BP < 140MM HG. G8754 MOST RECENT DIASTOLIC BP < 90MM HG. * Sign off status: Completed true * Provider: HEDY RODRIGUEZ Date: 0 01/01/2025 Generated for Lory bedolla/Danae/Siditting on: 0 01/05/2025 07:53 AM CDT History and Physical Notes * HPI (History [...] Se veral days Trouble falling or staying a sleep, or sleeping too much: More than half the days Feeling tired or having little energy: M ore than half the days Poor appetite or overeating: More than h retirement the days Feeling bad about yourself o [...] some way: Not at all Total Score: 8 Interpretation: Mild Depression Intervention Depression Screening Findings: P ositve Follow-Up for Depression: [facility] treatment assessment, Patient follow-up to return when and if necessary Suicide Risk Assessment Performed: 01/01 Additional Evaluation for Depression: Ps ychiatric interview and evaluation Name of the standardized too l used for adult depression screening:: Patient Health Questionnaire (PHQ-9) [place]-Suicide Severity Rating Scale Suicide Risk (CSRS-screener) in the past one month Have you wished you were or wished you could go to sleep and not wake up?: No in the past one month Have y ou actually had any thoughts of killing yourself?: No Have you ever done anything, started to do anything, or prepared to do anything to end your life?: No Examination Category Sub-Category Detail Notes Category Not es Psychiatry Appearance: well-groomed, we ll-nourished, ...hair colored blue and purple Attitude: cooperative Psychomotor activity: within normal rang [...] no impairment noted Delusions: no Hallucinations: no General Examination - Mental Status Examination: - Mood: Patient reports My anxiety is a dumpster fire. Describes being worried about everything and feeling irritable. - Thought Process: Generally linear and goal-directed. - Thought Content: Preoccupation with job security, expressing irrational fear that they're not going to rehire me again this year. - Cognition: Alert and able to engage in conversation about symptoms and treatment. - Insight: Fair insight. Patient recognizes increased anxiety symptoms and discusses medication effects. - Judgment: Fair judgment. Patient demonstrates ability to discuss medication changes and their effects, as well as seeking alternative remedies like passionflower serum tincture.
--- OUTSIDE RECORDS SUMMARY | 2025-01-05 07:54 | XMS_ITS ---
Author Organization [facility] [employer] Address [address] [facility] [address] [place] [address] Care Team Providers Care Electrical Lineman Name Role Phone Philipp Burger DO Primary Care Provider Donnie Lucas Unavailable [phone] Allergies No Known Allergies REASON FOR VISIT [...] 10/23/2024 Encounters Encounter Location Date Provider Diagnosis [facility] [address] [place] [address] 10/23/2024 Donnie Du Generalized anxiety disorder F41.1 [...] f/u bipolar d/o Provider Name:Donnie de leon, 02/03/2025 04:15:00 PM, [address], [place], [address], Progress Notes * DAMIAN TAPIA NDOB:[birth year] (39 yo F)Acc No.[id number]:10/23/2024 Patient: DAMIAN ZAMUDIO Provider: HEDY RDORIGUEZ :1985 A ge:39 Y S ex:Female Date:10/23/2024 Address:[address] [place] [address] [place] [address] Pcp:Philipp Burger DO Subjective: * Chief Complaints: [...] recently returned from visiting her parents in [place], where she observed her mother's Lewy body [...] P ositve, F ollow-Up for Depression M entnd health treatment assessment, Patient follow-up to return [...] es, D o you have Power of Spray Technician for Health or Medical? N o. * [...] d/o) * Billing Information: * Visit Code: 46847 OFFICE OUTPATIENT VISIT 25 MINUTES DETAILED HISTORY AND EXAM/MODERATE MEDICAL DECISION MAKING. * Procedure Codes: 56500 BEHAV ASSMT W/SCORE & DOCD/STAND INSTRUMENT. * ERGARTEN AIDE Sign off status: Completed true * Provider: HEDY RODRIGUEZ Date: 0 10/23/2024 Generated for Lory bedolla/Danae/eTransmitting on: 0 01/05/2025 07:54 AM CDT History and Physical Notes * [...] Poor appetite or overeating: More than h prison the days Feeling bad about yourself o [...] Screening Findings: P ositve Follow-Up for Depression: [facility] treatment assessment, Patient follow-up to return when [...] of Total: (10 to 14) Mode rate [place]-Suicide Severity Rating Scale Suicide Risk (CSRS-screener) in [...]
--- OUTSIDE RECORDS SUMMARY | 2025-01-05 07:55 | XMS_ITS | Patient Health Record ---
Author Organization [facility] Address [address] [place] [address] Support Name Relationship Address Phone Delores Head Guarantor Unknown [phone] Allergies Allergen (clinical drug ingredient) Drug/Non Drug [...] Status Risk Notes Problem Generalized anxiety disorder (44701979) Generalized anxiety disorder (F41.1) Active confirmed Problem Insomnia (732336645) Insomnia (G47.00) Active confirmed Problem Bipolar disorder (53666377) Bipolar disorder (F31.9) Active confirmed Problem Obsessive compulsive disorder (169322604) Obsessive compulsive disorder (F42.9) Active confirmed Plan Of Treatment Future Test Test Name Order Date 12 Panel Urine Drug Screen 01/18/2023 Insurance Providers Payer Name Payer Address Payer Phone Subscriber Number Group Number Insured Name Patient Relationship to Insured Coverage Start Date Coverage End Date [facility] Attn Claims Department [address] [place] [id number] Delores Head Self - patient is the insured 2 [employer] Att[employer] Claims Department [address] [place] [phone] [id number] Delores Head Self - patient is the insured [address] [employer] Att[employer] Claims Department [address] [id number] Delores Head Self - patient is the insured 2 Medical (General) History Medical History History ICD Code Patient denies seizures/head injury. Surgical History Surgery Date(Month/Year) Cholecystectomy 2004 Hospitalization History Reason Date(Month/Year) hypotension 2019
== END 2025-01-05 07:49 | disposition home or self-care (01) ==
PROVIDERS: PCP Internal Medicine; Visit Provider Nurse Practitioner
DX: R10.13 Epigastric pain (principal)
CPT/HCPCS: 74176

== ENCOUNTER 2025-07-30 08:01 | Outpatient (CLI) | payer OTHER, SELFPAY ==
--- NOTE | ~2025-07-30 | NM_ITS ---
EXAM: NM gastric emptying study DATE: 07/30/2025 12:44 INDICATION: Early satiety. Bloating. TECHNIQUE: A gastric emptying study was performed using the methodology of Juan Diego KELLY, et al. J Nucl Med 2007; 48:568-572. The patient was given a meal consisting of 2 scrambled eggs labeled with 1.0 mCi Tc-99m sulfur colloid, 2 slices of toast, two packages of jam, and approximately 120 mL of water. Simultaneous anterior and posterior 1-min images of the abdomen were obtained with the patient supine at multiple time points over a total period of 4 hours. The geometric mean of anterior and posterior views was determined, and the percentage retention was calculated for each time point. COMPARISON: CT 01/05/2025 FINDINGS: Gastric retention of the radiotracer-labeled meal was 59%, 40%, and 22% at the 1-hour, 2-hour, and 4-hour time points, respectively. With this technique, apparent rapid gastric emptying is suggested by <30% gastric retention at 1 hour. Delayed gastric emptying is defined by gastric retention of >90% at 1 hour, >60% retention at 2 hours, or >10% retention at 4 hours. IMPRESSION: 1. Delayed gastric emptying. Reviewed, dictated and finalized at location E.
== END 2025-07-30 08:02 | disposition home or self-care (01) ==
PROVIDERS: PCP Internal Medicine; Visit Provider Nurse Practitioner
DX: K21.9 Gastro-esophageal reflux disease without esophagitis (principal); K30 Functional dyspepsia
CPT/HCPCS: 78264; A9541